=== PATIENT | female | born 1970 | race Native Hawaiian/Other Pacific Islander ===

== ENCOUNTER 2024-11-04 19:18 | Emergency (ER) | payer MEDICAID, SELFPAY ==
[2024-11-04] VITALS (10 sets, daily range): BP systolic 87–135; BP diastolic 45–75; PULSE 84–111; RESP 13–22; TEMP 36.7; O2SAT 96–100; BMI 32.5
--- OUTSIDE RECORDS SUMMARY | 2024-11-04 19:23 | XMS_ITS | Clinical Summary ---
Author Organization [employer] [facility] [facility] Address [address] [place] [id number] Care Team Providers Care Laborer Syrup Machine Name Role Phone Sally Freeman MD Unavailable + Brooke Nur MD Primary Care Provider [facility], Rector Unavailable Allergies Active Allergy Reactions Criticality Noted Date Comments Aspirin Aspirin Contraindication (for reporting) 05/30/2016 GI upset Povidone-Iodine Itching 08/07/2007 Dexamethasone Anaphylaxis,Rash High 11/13/2016 Reactions observed when dexamethasone was used in iontophoresis treatment Unlisted Allergen (Include Detail In Comments) GI Upset 02/23/2021 chili peppers Medications multivitamin (VITAMIN DAILY ORAL) Take 1 tablet. by mouth once daily. Active ergocalciferol (,vitamin D2,) 50,000 unit capsuleIndicati ons:S/P spinal fusion Take 1 Capsule (50,000 units) by mouth once weekly. 12 Capsule 3 06/18/20 24 Active famotidine (PEPCID) 20 mg tablet Take 20 mg by mouth once daily. Active acetaminophen (TYLENOL EXTRA STRGTH) 500 mg tabletIndicatio ns:Spinal stenosis of lumbar region with neurogenic claudication,Ne urogenic claudication,S/ P lumbar fusion Take 2 Tablets (1,000 mg) by mouth every 6 hours. Max acetaminophen dose: 4000mg in 24 hrs. 80 Tablet 1 4 4:22 PM SUPERVISOR EXTRUSION 07/30/20 24 Active insulin NPH isophane, U-100, (HUMULIN-N PEN, NOVOLIN N FLEXPEN) 100 unit/mL (3 mL) pen Inject 20 units subcutaneously in the morning and 15 units in the evening. Active metFORMIN (GLUCOPHAGE) 1,000 mg tabletIndicatio ns:Diabetes mellitus without complication (HC) Take 1 Tablet (1,000 mg) by mouth two times daily with meals. 180 Tablet 1 09/11/19 25 Active glipiZIDE (GLUCOTROL) 10 mg tabletIndicatio ns:Diabetes mellitus without complication (HC) Take 1 Tablet (10 mg) by mouth two times daily before meals. 180 Tablet 1 09/11/19 25 Active cetirizine (ZYRTEC) 10 mg tabletIndicatio ns:Urticaria Take 1 Tablet (10 mg) by mouth once daily. 90 Tablet 3 09/11/19 25 Active prochlorperazin e (COMPAZINE) 10 mg tabletIndicatio ns:Gastroenteri tis Take 1 Tablet (10 mg) by mouth every 6 hours if needed for Nausea/Vomiting. 15 Tablet 09/24/19 25 Active gabapentin (NEURONTIN) 600 mg tabletIndicatio ns:S/P lumbar fusion,Acute post-operative pain,Bilateral leg and foot pain Take 1 Tablet (600 mg) by mouth three times daily. 90 Tablet 10/06/19 25 Active gabapentin (NEURONTIN) 300 mg capsuleIndicati ons:S/P lumbar fusion,Acute post-operative pain,Bilateral leg and foot pain Take 1 Capsule (300 mg) by mouth at bedtime. Take with 600 mg capsule to make total bedtime dose of 900 mg. 30 Capsule 10/06/19 25 Active traMADoL (ULTRAM) 50 mg tabletIndicatio ns:S/P lumbar fusion,Lumbar radiculopathy,S /P spinal fusion,Status post incision and drainage Take 1 Tablet (50 mg) by mouth every 8 hours if needed for Pain. 10 Tablet 10/30/19 25 Active gabapentin (NEURONTIN) 300 mg capsuleIndicati ons:Bilateral leg and foot pain [The details of the medication are not available because there are pending changes by a home health clinician.] 180 Capsule 12/24/20 24 025 Discontinu ed(*Medica tion adjustment ) traMADoL (ULTRAM) 50 mg tabletIndicatio ns:S/P lumbar fusion,Lumbar radiculopathy,S /P spinal fusion,Status post incision and drainage Take 1 Tablet (50 mg) by mouth every 6 hours if needed for Pain. 40 Tablet 09/10/19 25 025 Discontinu ed(Reorder (E-cancel not sent)) metoclopramide (REGLAN) 5 mg tabletIndicatio ns:Gastroenteri tis [The details of the medication are not available because there are pending changes by a home health clinician.] 20 Tablet 5 5:27 PM SUPERVISOR EXTRUSION 09/18/19 25 025 Discontinu ed(*Med complete/R egimen complete/L evel of care change) cefTRIAXone (ROCEPHIN) 2 gram injectionIndica tions:PROPHYLAX IS [The details of the medication are not available because there are pending changes by a home health clinician.] 10/01/19 25 025 Discontinu ed(Duplica te therapy (E-cancel not sent)) oxyCODONE (ROXICODONE) 5 mg immediate release tabletIndicatio ns:Acute post-operative pain,Status post incision and drainage Take 1 Tablet (5 mg) by mouth every 6 hours if needed for Pain. 10 Tablet 10/01/19 25 025 Discontinu ed(Reorder (E-cancel not sent)) doxycycline monohydrate 100 mg capsule Take 100 mg by mouth two times daily. Take 1 Capsule (100 mg) by mouth two times daily for 14 days. 10/03/19 25 025 oxyCODONE (ROXICODONE) 5 mg immediate release tabletIndicatio ns:Infection of deep incisional surgical site after procedure, subsequent encounter,Acute post-operative pain Take 1 Tablet (5 mg) by mouth every 6 hours if needed for Pain. 10 Tablet 10/06/19 25 025 Discontinu ed(*Med complete/R egimen complete/L evel of care change) traMADoL (ULTRAM) 50 mg tabletIndicatio ns:Infection of deep incisional surgical site after procedure, subsequent encounter,Acute post-operative pain,S/P lumbar fusion [The details of the medication are not available because there are pending changes by a home health clinician.] 15 Tablet 10/13/19 25 025 Discontinu ed(Duplica te therapy (E-cancel not sent)) Active Problems Problem Noted Date Diagnosed Date S/P lumbar fusion 09/11/2024 Infection of deep incisional surgical site after procedure 09/11/2024 Dysuria 09/11/2024 Sepsis 08/05/2024 Drainage from wound 08/05/2024 Spinal stenosis of lumbar re gion with neurogenic claudication 07/23/2024 Neurogenic claudication 05/02/2022 Type 2 diabetes mellitus, wi thout long-term current use of insulin 02/24/2021 Herniated nucleus pulposus, L5-S1 05/06/2020 Radicular pain of right lower extremity 04/28/20 Foot pain, right 08/15/2019 Atypical chest pain 03/04/2019 AGUERO (dyspnea on exertion) 03/04/2019 Biceps tendinopathy, right 03/12/2018 Arthritis of right acromioclavicular joint 03/12 Impingement syndrome of right shoulder 8 Myopia of both eyes with astigmatism and presbyo rut 10/04/2017 Bilateral Intersection syndrome, left greater th an right 11/13/2016 Chronic pain of both knees 02/15/2016 Overview (02/15/2016): January 2016: Synvisc ONE bilaterally. Lumbosacral spondylosis without myelopathy 12/07 Gross hematuria 11/20/2014 Chronic pelvic pain in female 11/09/2014 Neck pain 09/29/2014 Chronic pain 09/29/2014 Frontal headache 12/12/2013 Chondromalacia, patella 11/14/2013 Fatty liver 10/08/2013 Adjustment disorder with mixed anxiety and depre ssed mood 05/15/2012 Endometriosis of ovary 12/11/2011 Pelvic adhesions 12/11/2011 Mixed incontinence urge and stress 12/11/2011 Ganglion cyst of volar aspect of left wrist 08/27 Hydrosalpinx 03/10/2010 Overview (03/10/2010): Left tube Pelvic pain in female 03/10/2010 Dysmenorrhea 03/10/2010 Degeneration of L5-S1 Disk 10/15/2009 L5-S1 Disk Bulge with Annular Tear 10/15/2009 Painful Lumbar Facet Arthropathy at L5-S1 2009 Endometriosis of pelvic peritoneum 03/03/2009 Unspecified vitamin D deficiency 11/03/2008 Obesity, unspecified 05/03/2007 DM w/o complication type II 02/05/2006 Overview (06/09/2013): Diagnosis: 2004 per patient 06/09/2013 Diverticular disease of colon Spinal stenosis, lumbar region with neurogenic c laudication Resolved Problems Problem Noted Date Diagnosed Date Resolved Date Osteoarthritis of right acro mioclavicular joint 08/04/2015 08/16/2018 Hyperthyroidism 06/10/2013 07/14/2013 Overview (06/10/2013): New diagnosis 06/10/2013 Endometriosis of other specified sites 03/10/2010 01/25/2015 Pyelonephritis, unspecified 04/27/2009 06/09/2013 Encounters Date Type Department Care Team Description 11/04/2024 Home Care Visit [facility] [address] [place] [address] Aurea Christina RN SN - PRN HOME VISIT 11/04/2024 Telephone [facility] [address] [facility] [address] [place] [phone] Randy López PA Medication Management 11/03/2024 10:00 AM CDT Home Care Visit [facility] [address] [place] [address] Aurea Christina RN SN - WOUND LONG VISIT (>90 MINUTES) 11/03/2024 Telephone [facility] [address] [place] [address] Aurea Christina RN Abdominal Pain/problem 11/03/2024 Telephone [facility] [address] [place] [address] Safia Perez PA Concerns 11/03/2024 Nurse Triage [facility] [address] [place] [address] Brooke Nur MD Abdominal Pain 10/31/2024 8:00 AM SUPERVISOR EXTRUSION Home Care Visit [facility] [address] [place] [phone] Aurea Christina, SHAWANDA SN - WOUND LONG VISIT (>90 MINUTES) 10/31/2024 Orders Only [facility] [address] [facility] [address] [place] [phone] Ja Brown PA <No scans attached> 10/31/2024 Orders Only [facility] [address] [place] [address] Brooke Nur MD <No scans attached> 10/29/2024 Home Care Visit [facility] [address] [place] [phone] Aurea Christina, SHAWANDA SN - PRN LONG VISIT >90 MINS 10/29/2024 Refill [facility] [address] [place] [phone] Tana Edwards MBBS Refill Request 10/29/2024 Orders Only [facility] [address] [facility] [address] [place] [phone] Jared Pavon RN <No scans attached> 10/29/2024 Telephone [facility] [address] [place] [address] Brooke Nur MD 10/28/2024 Orders Only [facility] [address] [place] [address] Aurea Christina RN <No scans attached> 10/27/2024 2:00 PM SUPERVISOR EXTRUSION Home Care Visit [facility] [address] [place] [phone] Aurea Christina, SHAWANDA SN - WOUND LONG VISIT (>90 MINUTES) 10/27/2024 Telephone [facility] [address] [place] [phone] Jo-Ann Oquendo NP Questions 10/24/2024 5:00 PM SUPERVISOR EXTRUSION Home Care Visit [facility] [address] [place] [address] Aurea Christina RN SN - WOUND LONG VISIT (>90 MINUTES) 10/22/2024 11:20 AM SUPERVISOR EXTRUSION Office Visit [facility] [address] [place] [phone] Jo-Ann Oquendo NP Wound Check 10/22/2024 10:45 AM SUPERVISOR EXTRUSION Office Visit [facility] [address] [place] [phone] Tana Edwards MBBS Follow Up (wound check ) 10/22/2024 Travel 10/20/2024 8:00 AM SUPERVISOR EXTRUSION Home Care Visit [facility] [address] [place] [address] Aurea Christina RN SN - WOUND LONG VISIT (>90 MINUTES) 10/17/2024 Telephone [facility] [address] [place] [phone] Jo-Ann Oquendo NP Questions (VAC) 10/16/2024 8:20 AM SUPERVISOR EXTRUSION Office Visit [facility] [address] [place] [address] Jo-Ann Oquendo NP Wound Check 10/16/2024 Travel 10/15/2024 8:00 AM SUPERVISOR EXTRUSION Home Care Visit [facility] [address] [place] [address] Aurea Christina RN SN - WOUND LONG VISIT (>90 MINUTES) 10/15/2024 Orders Only [address] [place] [address] Brooke Nur MD <No scans attached> 10/14/2024 1:00 PM SUPERVISOR EXTRUSION Home Care Visit [facility] [address] [place] [phone] Shalini Morris RN SN - HOME VISIT 10/13/2024 10:50 AM SUPERVISOR EXTRUSION Office Visit [facility] [place] [address] [place] [address] Vimal Min MD Follow Up (Hypercharge) 10/13/2024 Telephone [facility] [address] [place] [phone] Rima Isbell RN Home Care (PICC removal orders) 10/13/2024 Home Care Visit [facility] [address] [place] [phone] Rima Isbell RN CARE COORDINATION 10/13/2024 Telephone [facility] [address] [place] [address] Mari Elam MD Questions (PICC LINE MIGRATING, IV ANTIBIOTICS AND LABS, PLAN OF CARE) 10/13/2024 Nurse Triage [facility] [address] [place] [address] Brooke Nur MD Infusion Therapy (PICC line concerns/lab orders) 10/13/2024 Travel 10/10/2024 2:00 PM SUPERVISOR EXTRUSION Home Care Visit [facility] [address] [place] [phone] Aurea Christina RN SN - WOUND LONG VISIT (>90 MINUTES) 10/09/2024 Orders Only [facility] [address] [place] [address] Brooke Nur MD <No scans attached> 10/08/2024 8:00 AM SUPERVISOR EXTRUSION Home Care Visit [facility] [address] [place] [address] Aurea Christina, RN SN - WOUND LONG VISIT (>90 MINUTES) 10/06/2024 11:35 AM SUPERVISOR EXTRUSION Office Visit [facility] [address] [place] [address] Safia Perez PA Hospital F/U (DOD 10/01/2024 [facility] INFECTION OF DEEP INCISIONAL SURGICAL SITE AFTER PROCEDURE); Concerns (Not sleeping ) 10/06/2024 8:00 AM SUPERVISOR EXTRUSION Home Care Visit [facility] [address] [place] [address] Aurea Christina, SHAWANDA SN - WOUND LONG VISIT (>90 MINUTES) 10/06/2024 Orders Only [facility] [address] [place] [address] Brooke Nur MD <No scans attached> 10/06/2024 Refill [facility] [address] [place] [address] Safia Perez PA Refill Request (Oxycodone) 10/06/2024 Telephone [facility] [address] [place] [address] Safia Perez PA Medication Management 10/06/2024 Travel 10/03/2024 9:00 AM SUPERVISOR EXTRUSION Home Care Visit [place] [address] [place] [phone] Auera Christina RN SN IV - START OF CARE 10/03/2024 Orders Only [facility] [address] [place] [address] Brooke Nur MD <No scans attached> 10/03/2024 Plan of Care Documentation [address] [address] 10/02/2024 Transcribe Orders [facility] [address] [place] [phone] Infusion, [facility] 10/02/2024 Telephone [facility] [address] [place] [address] Mari Elam MD 10/02/2024 Patient Outreach [facility] [address] [place] [address] Zhane Cho, RN Student Primary RN Care Management; Hospital F/U (Lace=41) 10/02/2024 Home Care Visit [facility] [address] [place] [phone] Aurea Christina, SHAWANDA SN - OASIS TRANSFER 10/01/2024 Home Care Visit [facility] [address] [place] [phone] Aurea Christina, SHAWANDA EPISODE DISCHARGE 10/01/2024 Orders Only [facility] [address] [place] [phone] Manish amaro PA <No scans attached> 10/01/2024 Home Care Visit [facility] [address] [place] [phone] Aurea Christina, AQUACULTURE PROGRAM DIRECTOR NOTE 09/29/2024 4:41 PM SUPERVISOR EXTRUSION Anesthesia Event [address] [address] Adonay Franco MD Koenig, Lisa Fredkove, MD 09/29/2024 4:20 PM SUPERVISOR EXTRUSION - 09/29/2024 5:57 PM SUPERVISOR EXTRUSION Surgery [address] [address] Tana Edwards MBBS INCISION AND DEBRIDEMENT OF ABDOMINAL WOUND WITH WOUND VACUUM PLACEMENT 09/29/2024 11:12 AM SUPERVISOR EXTRUSION - 10/01/2024 6:21 PM SUPERVISOR EXTRUSION Hospital Encounter [address] [address] Tana Edwards MBBS Infection of deep incisional surgical site after procedure, subsequent encounter (Primary Dx); Postoperative infection, unspecified type, sequela; Acute post-operative pain; S/P lumbar fusion; Lumbar radiculopathy; S/P spinal fusion; Status post incision and drainage Discharge Disposition: Home Self Care 09/29/2024 Travel 09/27/2024 Orders Only [facility] [address] [facility] [address] Brooke Nur MD <No scans attached> 09/26/2024 2:35 PM SUPERVISOR EXTRUSION Office Visit [facility] [address] [place] [address] Mercy Villalpando PA Pre-Op Exam (Type/Name of Surgery: ABDOMINAL SURGERY / Date of Surgery: 09/29/24 /Place of Surgery: [facility] /Surgeon's : DR. SHARMAINE EDWARDS / /) 09/26/2024 9:00 AM SUPERVISOR EXTRUSION Home Care Visit [facility] [address] [place] [address] Aurea Christina RN SN - HOME VISIT 09/26/2024 Travel 09/26/2024 Orders Only [facility] [address] [place] [address] Jo-Ann Oquendo NP <No scans attached> 09/25/2024 10:10 AM SUPERVISOR EXTRUSION Orders Only [facility] [address] [place] [address] Lab 09/25/2024 7:40 AM SUPERVISOR EXTRUSION Office Visit [facility] [address] [place] [address] Jo-Ann Oquendo NP Wound Check 09/25/2024 Orders Only [facility] [address] [place] [address] Brooke Nur MD <No scans attached> 09/25/2024 Telephone [facility] [address] [place] [address] Tana Edwards MBBS Education 09/25/2024 Telephone [facility] [address] [place] [address] Tana Edwards MBBS Procedure education and update 09/25/2024 Telephone [facility] [address] [facility] [address] [place] [address] Tana Edwards MBBS Procedure 09/25/2024 Travel 09/24/2024 8:30 AM SUPERVISOR EXTRUSION Home Care Visit [facility] [address] [place] [address] Aurea Christina RN SN - LONG VISIT (>90 MINUTES) 09/24/2024 Telephone [facility] [address] [place] [address] Brooke Nur MD Follow Up 09/22/2024 8:00 AM SUPERVISOR EXTRUSION Home Care Visit [facility] [address] [place] [phone] Aurea Christina RN SN - LONG VISIT (>90 MINUTES) 09/22/2024 Orders Only [facility] [address] [facility] [place] [address] Justin Garsia MD Lab 09/22/2024 Orders Only [facility] [address] [place] [address] Brooke Nur MD <No scans attached> 09/19/2024 9:40 AM SUPERVISOR EXTRUSION Office Visit [facility] [address] [facility] [address] [place] [address] Jo-Ann Oquendo NP Wound Check 09/19/2024 Home Care Visit [facility] [address] [place] [phone] Rima Isbell RN CARE COORDINATION 09/18/2024 11:47 AM SUPERVISOR EXTRUSION - 09/18/2024 5:25 PM SUPERVISOR EXTRUSION Emergency [facility] [address] [place] [address] Elizabeth Pizarro PA Gooley, Brian Thomas, MD Gastroenteritis (Primary Dx); Chronic wound infection of abdomen, initial encounter Discharge Disposition: Home Self Care 09/18/2024 Travel 09/17/2024 8:30 AM SUPERVISOR EXTRUSION Home Care Visit [facility] [address] [place] [address] Josselyn Garland RN SN - HOME VISIT 09/17/2024 Orders Only [facility] [address] [place] [address] Brooke Nur MD Lab 09/17/2024 Orders Only [facility] [address] [place] [address] Brooke Nur MD Lab (Home care) 09/17/2024 Orders Only [facility] [address] [place] [address] Justin Garsia MD Lab (Home care) 09/16/2024 Telephone [facility] [address] [place] [address] Josselyn Garland RN Diarrhea 09/16/2024 Telephone [facility] [address] [place] [address] Justin Garsia MD Lab (Home care) 09/16/2024 Nurse Triage [facility] [address] [place] [address] Brooke Nur MD Vomiting; Diarrhea 09/16/2024 Nurse Triage [facility] [address] [facility] [address] [place] [address] Mari Elam MD Diarrhea; Vomiting; Weak 09/15/2024 11:00 AM SUPERVISOR EXTRUSION Office Visit [facility] [place] [address] [place] [address] Vimal Cabello MD Follow Up (incision check ) 09/15/2024 Travel 09/12/2024 3:45 PM SUPERVISOR EXTRUSION Home Care Visit [facility] [address] [facility] [place] [address] Raul Montoya, PT PT - DISCIPLINE DISCHARGE 09/12/2024 3:00 PM SUPERVISOR EXTRUSION Home Care Visit [facility] [address] [facility] [place] [address] Aurea Crhistina, SHAWANDA SN - HOME VISIT 09/12/2024 4:00 AM SUPERVISOR EXTRUSION Home Care Visit [facility] [address] [facility] [place] [phone] Raul Collado RN SN - WOUND/OSTOMY CHART CONSULT 09/12/2024 Travel 09/12/2024 Home Care Visit [facility] [address] [place] [phone] Sandrine Guzman, PHOTO FINISH PHOTOGRAPHER CARE COORDINATION 09/11/2024 12:45 PM SUPERVISOR EXTRUSION Office Visit [facility] [address] [place] [address] Brooke Nur MD Hospital F/U ([facility] 08/05/2024) 09/11/2024 9:20 AM SUPERVISOR EXTRUSION Office Visit [facility] [address] [place] [address] Mari Elam MD Hospital F/U 09/11/2024 8:20 AM SUPERVISOR EXTRUSION Office Visit [facility] [address] [place] [address] Jo-Ann Oquendo NP Wound Check 09/11/2024 Travel 09/10/2024 4:00 PM SUPERVISOR EXTRUSION Home Care Visit [facility] [address] [facility] [place] [address] Aurea Christina, SHAWANDA SN - HOME VISIT 09/10/2024 Telephone [facility] [address] [place] [address] Pawan Us PA Refill Request 09/10/2024 Telephone [facility] [address] [place] [phone] Jo-Ann Oquendo NP Failed Appointment (No show) 09/08/2024 8:30 AM SUPERVISOR EXTRUSION Home Care Visit [facility] [address] [place] [phone] Aurea Christina, RN SN - LONG VISIT (>90 MINUTES) 09/08/2024 Orders Only [facility] [address] [facility] [place] [address] Leslye Garsia RN Lab 09/05/2024 1:30 PM SUPERVISOR EXTRUSION Office Visit [facility] [address] [place] [phone] Tana Edwards MBBS Consult (H/O lumbosacral spine surgery) 09/05/2024 8:00 AM SUPERVISOR EXTRUSION Ancillary Procedure [facility] [address] [place] [address] 09/05/2024 Travel 09/04/2024 9:00 AM SUPERVISOR EXTRUSION Office Visit [facility] [address] [place] [phone] Pawan Us PA Post-op (INCISION CHECK AND SUTURE REMOVAL - HAS A FLUID COLLECTION/5 weeks post/op 07/23/24 A/P L4-S1 W/ PF) 09/04/2024 Telephone [facility] [address] [place] [address] Justin Garsia MD Abdominal Pain/problem 09/03/2024 5:30 PM SUPERVISOR EXTRUSION Home Care Visit [facility] [address] [place] [phone] Aurea Christina, SHAWANDA SN - HOME VISIT 09/03/2024 4:00 PM SUPERVISOR EXTRUSION Home Care Visit [facility] [address] [place] [address] Raul Montoya, PT PT - HOME VISIT 09/03/2024 Travel 09/03/2024 Telephone [facility] [address] [place] [phone] Tana Edwards MBBS Appt and imaging schedule 09/03/2024 Telephone [facility] [address] [place] [address] Tana Edwards MBBS Error-please disregard 09/03/2024 Telephone [facility] [address] [place] [address] Pawan Us PA Refill Request 09/02/2024 4:00 AM SUPERVISOR EXTRUSION Home Care Visit [place] [address] [place] [phone] Raul Collado, RN SN - WOUND/OSTOMY CHART CONSULT 09/02/2024 Home Care Visit [facility] [address] [place] [phone] Aurea Christina RN SN - HOME VISIT 09/02/2024 Telephone [facility] [address] [place] [phone] Tana Edwards MBBS Wound Update 09/01/2024 3:30 PM SUPERVISOR EXTRUSION Home Care Visit [facility] [address] [place] [phone] Claire Ramsey LISW GENERAL ACTIVITIES THERAPIST - INITIAL ASSESSMENT 09/01/2024 8:30 AM SUPERVISOR EXTRUSION Home Care Visit [place] [id number] [place] [phone] Aurea Christina, SHAWANDA SN - LONG VISIT (>90 MINUTES) 09/01/2024 Orders Only [facility] 200 [facility] DANIELA TERRELLSRINIVAS [place] [phone] Justin Garsia MD Lab 08/29/2024 10:30 AM SUPERVISOR EXTRUSION Home Care Visit [facility] [address] [place] [phone] Raul Montoya, PT PT - HOME VISIT 08/29/2024 Telephone [facility] at [facility] [address] [address] Pawan Us PA Refill Request 08/28/2024 12:00 PM SUPERVISOR EXTRUSION Home Care Visit [facility] [address] [place] [phone] Raul Collado, RN SN - WOUND/OSTOMY CHART CONSULT 08/28/2024 9:30 AM SUPERVISOR EXTRUSION Home Care Visit [facility] [address] [place] [phone] Aurea Christina RN SN - HOME VISIT 08/28/2024 Telephone [facility] [address] [place] [address] Raul Collado, drapery cutter machine 08/28/2024 Home Care Visit [facility] [address] [place] [phone] Raul Montoay, PT CARE COORDINATION 08/28/2024 Orders Only [facility] [address] [place] [address] Tana Garsia DO Lab 08/28/2024 Orders Only [facility] [address] [place] [address] Brooke Nur MD Lab 08/26/2024 2:45 PM SUPERVISOR EXTRUSION Office Visit [facility] 280 [facility] [address] [place] [phone] Pawan Us PA Post-op (08/13/24 Post Lumbar wound exploration (sms)/07/23/24 APSF L4-S1 w/ pelvic fix (sms)) 08/26/2024 2:15 PM SUPERVISOR EXTRUSION Ancillary Procedure [facility] [address] [place] [address] 08/26/2024 4:00 AM SUPERVISOR EXTRUSION Home Care Visit [facility] [address] [place] [address] Raul Collado, RN SN - WOUND/OSTOMY CHART CONSULT 08/26/2024 Telephone [facility] [address] [place] [address] Raul Collado, drapery cutter machine 08/26/2024 Home Care Visit [facility] [address] [place] [phone] Rima Isbell RN CARE COORDINATION 08/26/2024 Travel 08/22/2024 10:00 AM SUPERVISOR EXTRUSION Home Care Visit [facility] [address] [place] [phone] Lela Ayers, PT PT - INITIAL ASSESSMENT 08/22/2024 Telephone [facility] at [facility] [address] [place] [address] Randy López PA 08/21/2024 1:30 PM SUPERVISOR EXTRUSION Home Care Visit [facility] [address] [place] [phone] Sandrine Guzman, PHOTO FINISH PHOTOGRAPHER PHOTO FINISH PHOTOGRAPHER - HOME VISIT 08/21/2024 Home Care Visit [facility] [address] [place] [phone] Lela Ayers, PT CARE COORDINATION 08/19/2024 8:00 AM SUPERVISOR EXTRUSION Home Care Visit [facility] [address] [place] [phone] Aurea Christina, SHAWANDA SN - HOME VISIT 08/19/2024 12:25 AM SUPERVISOR EXTRUSION Home Care Visit [facility] [address] [place] [phone] Raul Collado, RN SN - WOUND/OSTOMY CHART CONSULT 08/19/2024 Orders Only [facility] [address] [place] [address] Justin Garsia MD Lab 08/19/2024 Refill [facility] [address] [place] [address] Brooke Nur MD Refill Request (Gabapentin) 08/19/2024 Telephone [facility] at [facility] [address] [place] [address] Pawan Us PA Refill Request 08/18/2024 3:00 PM SUPERVISOR EXTRUSION Home Care Visit [facility] [address] [place] [phone] Aurea Christina, SHAWANDA SN - HOME VISIT 08/18/2024 Orders Only [facility] [address] [place] [phone] Justin Garsia MD Lab (Weekly labs) 08/18/2024 Orders Only [facility] [address] [place] [address] Justin Garsia MD <No scans attached> 08/18/2024 Patient Outreach [facility] [address] [place] [address] Annalisa Perkins RN Primary RN Care Management (Lace score 63/); Hospital F/U 08/16/2024 12:00 PM SUPERVISOR EXTRUSION Home Care Visit [facility] [address] [place] [phone] Alka Joshua, RN SN - OASIS RESUMPTION OF CARE 08/15/2024 Home Care Visit [facility] [address] [place] [phone] Alka Joshua, RN CARE COORDINATION 08/15/2024 Refill [facility] [address] [place] [address] Brooke Nur MD Refill Request (Gabapentin) 08/13/2024 7:25 AM SUPERVISOR EXTRUSION Anesthesia Event [place] [address] [place] [address] Selvin Guzmán MD Nye, Leeroy Pearson MD 08/13/2024 7:10 AM SUPERVISOR EXTRUSION - 08/13/2024 9:09 AM SUPERVISOR EXTRUSION Surgery [place] [address] [place] [address] Vimal Min MD POSTERIOR LUMBAR WOUND EXPLORATION 08/07/2024 Home Care Visit [facility] [address] [place] [phone] Rima Isbell RN SN - OASIS TRANSFER 08/05/2024 1:44 PM SUPERVISOR EXTRUSION - 08/15/2024 4:28 PM SUPERVISOR EXTRUSION Hospital Encounter [place] [address] [place] [address] Daysi Chan PA Beeman, Michel Bone MD [facility], Hospitalist [facility] Jared Cardona MD Gardner, MD Danielle Henderson, Kaylen Coffey MD Drainage from wound (Primary Dx); Leukocytosis, unspecified type; S/P lumbar fusion; Wound drainage; Fluid collection at surgical site, initial encounter; Bilateral leg and foot pain; Spinal stenosis of lumbar region with neurogenic claudication; Neurogenic claudication; Sepsis, due to unspecified organism, unspecified whether acute organ dysfunction present (HC); Status post incision and drainage Discharge Disposition: Home Health from Last 3 Months Immunizations Immunization Administration Dates Next Due AMB Influenza, IIV3 (Age >=3 years)(Flu Clinic Only) 07/26/2010 AMB Influenza, IIV4 PF (=>6 mos Flulaval,Fluzone Fluarix)(Flu Clinic Only) 06/20/2019 COVID-19 vaccine (Pfizer-Bio NTech 30mcg/0.3mL) 12YO+ BIVALENT PF, MDV 10/05/2022 COVID-19 vaccine (Pfizer-Bio NTech 30mcg/0.3mL) 12YO+ YADY-SUCROSE PF, MDV 09/26/2021 COVID-19 vaccine (Pfizer-Bio NTech 30mcg/0.3mL) PF, MDV 01/10/2021,12/20/2020 DT (Age < 7 years) 08/11/2005 HepA-HepB (Twinrix) 05/30/2016,08/26/2013,2012 Influenza A (H1N1), Inactivated 08/23/2009 Influenza A (H1N1), Inactiva jayda (Age >=3 Years) 08/23/2009 Influenza, IIV3 (Age >=3 years) 06/06/20 13,07/26/2010,05/07/2009,2006,06/04/2006,08/11/2005 Influenza, IIV4 05/02/2022,,05/17/2020,2017,06/21/2017,05/30/2016,06/04/2015,0 05/21/2014 Influenza, IIV4 (=>6mos) MDV 06/05/2023 Pneumococcal Conj 20-valent (Prevnar 20) 05/02/2022 Pneumococcal Poly,23-Valent (Pneumovax) 05/17/2020,09/25/2017 TD, UNSPECIFIED 11/12/2018 Td, Preservative Free (age > = 7 Years) 08/11/2005 Tdap 01/12/2015 Zoster (Shingrix-RZV, recombinant) 07/08/2021, Family History Medical History Relation Name Comments Coronary artery disease Brother Depression Father Diabetes Father Heart Disease Father Depression Mother Diabetes Mother Heart Disease Mother Hypertension Mother Other Mother cirrhosis, 45 Ulcerative colitis Mother Other Sister 4 liver disease Anesthesia Problem No Family History Blood Disease No Family History Cancer-breast No Family History Relation Name Status Comments Brother Father Alive Maternal Grandfather Maternal Grandmother Mother (Age 45) ND, DM, ci rrhosis Paternal Grandfather Paternal Grandmother Alive Sister 1 Alive Sister 2 Alive Sister 3 Alive Sister 4 Social History Tobacco Use Types Packs/Day Years Used Date Smoking Tobacco: Never Smokeless Tobacco: Never Tobacco Cessation:Counseling Given: No Comments:No passive exposure Alcohol Use Standard Drinks/Week Comments No 0 (1 standard drink = 0.6 oz pur e alcohol) PHQ-2 Answer Date Recorded PHQ-2 TOTAL SCORE 0 12/20/2023 Social Connections Answer Date Recorded Do you often feel lonely or isolated from those around you? 0 08/08/2024 Financial Resource Strain Answer Date R ecorded Difficulty of Paying Living Expenses 3 08/08/2024 Difficulty of Paying Living Expenses Not on file 08/08/2024 Food Insecurity Answer Date Recorded Do you worry your food will run out before you are able to buy more? 1 08/08/2024 Transportation Needs Answer Date Record ed Does lack of transportation keep you from medica l appointments? 1 08/08/2024 Does lack of transportation keep you from work, meetings or getting things that you need? 1 08/08/2024 Housing Stability Answer Date Recorded What is your housing situation today? 1 08/08/2024 Interpersonal Safety Answer Date Record ed Are you being hit, kicked, p ushed or yelled at (see row info)? No 10/01/2024 Interpersonal Safety Abuse 12 - 18 Not on file 10/01/2024 Interpersonal Safety Ambulatory Vulnerability No t on file 10/01/2024 Utilities Answer Date Recorded Do you have trouble paying f or utilities (for example, heat, electricity, water, phone)? 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 Not on file Not on file Not on file Obstetrics History Para Term AB IAB SAB Ectopic Multiple Livin g Live Births 0 0 0 0 0 0 0 0 0 0 Last Filed Vital Signs Vital Sign Reading Time Taken Comments Blood Pressure 105/70 11/03/2024 1:15 PM CDT Pulse 85 11/03/2024 1:15 PM CDT Temperature 36.6 C (97.8 F) 11/04/2024 2:00 PM CDT Respiratory Rate 16 11/03/2024 1:15 PM CDT Oxygen Saturation 96% 11/03/2024 1:15 PM CDT Inhaled Oxygen Concentration - - Weight 70.8 kg (156 lb) 10/13/2024 11:27 AM SUPERVISOR EXTRUSION Height 144.8 cm (4' 9) 10/13/2024 11:27 AM SUPERVISOR EXTRUSION Body Mass Index 33.76 10/13/2024 11:27 AM SUPERVISOR EXTRUSION Plan of Treatment Upcoming Encounters Date Type Department Care Team (Late st Contact Info) Description 11/05/2024 12:45 PM CDT Office Visit [facility] [address] [place] [address] Brooke Nur MD [address] [place] [address] 11/05/2024 2:20 PM CDT Office Visit [facility] [address] [place] [phone] Jo-Ann Oquendo 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 [address] [place] [address] 11/07/2024 8:00 AM CDT Home Care Visit [place] [address] [place] [phone] Aurea Christina, RN 11/10/2024 8:00 AM CDT Home Care Visit [place] [address] [place] [phone] Aurea Christina, RN 11/12/2024 7:40 AM CDT Office Visit [facility] [address] [place] [phone] Jo-Ann Oquendo NP [address] [place] [address] 11/14/2024 8:00 AM CDT Home Care Visit [address] [phone] Aurea Christina, RN 11/17/2024 8:00 AM CDT Home Care Visit [place] [address] [place] [phone] Aurea Christina, RN 11/21/2024 8:00 AM CDT Home Care Visit [address] [phone] Aurea Christina, SHAWANDA 11/24/2024 8:00 AM CDT Home Care Visit [facility] [address] [facility] [place] [address] Aurea Christina, RN 11/28/2024 8:00 AM CDT Home Care Visit [facility] [address] [facility] [place] [phone] Aurea Christina, RN 12/01/2024 8:00 AM CDT Appointment [facility] [address] [facility] [place] [phone] Aurea Christina, RN Health Maintenance Due Date Last Done Comments COVID-19 vaccine series ( season) 2024 06/05/2023, 10/05/2022, 09/26/2021, Additional history exists Influenza Vaccine (#1) 2024 , 05/02/2022, 07/04/2021, Additional history exists Mammogram for age 45-75 08/23/2024 08/23/20 23, 06/29/2020, 08/21/2018, Additional history exists Depression screening for age 12+ 12/19/2024 12/20/2023, 12/20/2023, 10/06/2022, Additional history exists BMI (ht and wt on same day) for age 18+ 10/13/2025 10/13/2024, 09/26/2024, 09/15/2024, Additional history exists Lipids for age 45-75 08/16/2028 08/16/2023, 05/02/2022, 06/24/2020, Additional history exists Tetanus booster 11/12/2028 11/12/2018, 12/25, 04/21/2011, Additional history exists Colonoscopy through age 75 12/17/203112/16, 12/16/2021, 12/16/2021 Hepatitis C screening for ag e 18-79 Completed 03/07/2010, 11/10/2008, 12/10/2002 Tdap Completed 01/12/2015 Hepatitis B series for Diabetes Completed 05/30/2016, 08/26/2013, 01/10/2013 HIV for age 15-65 Completed 12/31/2018, , 06/13/2013, Additional history exists Zoster (shingles) series for age 50+ Completed 07/08/2021, 05/17/2020 Pneumococcal series for age 50+ Completed 05/02/2022, 05/17/2020, 09/25/2017 Medical Devices Implanted Type Area Driver Wheelchair Device Identifier Shelf Expiration Date Model / Serial / Lot System Sling Obtryx Halo [id number] - [id number] Implanted:Qt y: 1 on 12/11/2011 at [facility] N/A: Vagina [facility] 02/23/2014 850-500# / / [id number] - [id number] Implanted:Qt y: 1 on 07/23/2024 by Vimal Min MD at [facility] N/A: Lumbar Vertebrae SeaSpine [id number] / / Description:Face Plate 16 mm 3-hole I added the 3 to the catalog number and emailed RN to notify that I made the change. 07/25 JT Bone 1-4mm 60cc Medtronic Fine Canclls Freeze Dried - [id number] Implanted:Qt y: 1 on 07/23/2024 by Vimal Min MD at [facility] N/A: Lumbar Vertebrae Medtronic Spine/Ortho [id number] 03/30/2028 [id number] / [id number] / Screw Bone Polyaxial Mariner - [id number] Implanted:Qt y: 6 on 07/23/2024 by Vimal Min MD at [facility] N/A: Lumbar Vertebrae SeaSpine [id number] / / Screw 8.5x60mm Solid Mariner - [id number] Implanted:Qt y: 2 on 07/23/2024 by Vimal Min MD at [facility] N/A: Lumbar Vertebrae Sea[employer]ine [id number] / / Screw 7.5x40mm Solid Mariner - [id number] Implanted:Qt y: 2 on 07/23/2024 by Vimal Min MD at [facility] N/A: Lumbar Vertebrae SeaSpine [id number] / / Screw 6.5x50mm Solid Mariner - [id number] Implanted:Qt y: 2 on 07/23/2024 by Vimal Min MD at [facility] N/A: Lumbar Vertebrae [facility] 41-6550-1 / / Set Screw Pointlock Mariner - [id number] Implanted:Qt y: 6 on 07/23/2024 by Vimal Min MD at [facility] N/A: Lumbar Vertebrae Ana Luisa [id number] / / [id number] - [id number] Implanted:Qt y: 2 on 07/23/2024 by Vimal Min MD at [facility] N/A: Lumbar Vertebrae [place] 41 / / Description:Ruben 6.0x70 mm Bone Matrix 10cc Marcell Plus Paste Dbm - [id number] Implanted:Qt y: 1 on 07/23/2024 by Vimal Min MD at [facility] N/A: Lumbar Vertebrae Medtronic Spine/Ortho [id number] 06/05/2026 [id number] / [id number] / Bone Matrix 5cc Stimulan Kit Rapid Cure - [id number] Implanted:Qt y: 1 on 07/23/2024 by Vimal Min MD at [facility] N/A: Lumbar Vertebrae [employer] 03/26/2027 [id number] / / [id number] Bone Matrix Md Infuse Bmp - [id number] Implanted:Qt y: 1 on 07/23/2024 by Vimal Min MD at [facility] N/A: Lumbar Vertebrae Medtronic Spine/Ortho [id number] 10/25/2025 [id number] / / [id number] 14 Peek Ti, Ta Seaspine Implant Implanted:Qt y: 1 on 07/23/2024 by Vimal Min MD at [facility] N/A: Lumbar Vertebrae SeaSpine 02/15/2028 [id number] / / [id number] Description:No Profile inter body, 31 x 24 x 14, 15 Degree 16 Peek Ti, Ta Seaspine Implant Implanted:Qt y: 1 on 07/23/2024 by Vimal Min MD at [facility] N/A: Lumbar Vertebrae SeaSpine 02/29/2028 [id number] / / [id number] Description:No profile inter body , 31 x 24 x 16, 15 degree Mrai-[id number] - [id number] Implanted:Qt y: 1 on 07/23/2024 by Vimal Min MD at [facility] N/A: Lumbar Vertebrae [employer]ine [id number] / / Description:Locking Plate [facility] - [id number] Implanted:Qt y: 1 on 07/23/2024 by Vimal Min MD at [facility] N/A: Lumbar Vertebrae SeaSpine [id number] / / Description:Face Plate 14 mm 3-hole I updated the catalog number for the RN and email the correction. I added the 07/25 JT [facility]-495029 - [id number] Implanted:Qt y: 6 on 07/23/2024 by Vimal Min MD at [facility] N/A: Lumbar Vertebrae [facility]-[id number] / / Description:Screw 5.5 x 25 m m Procedures Procedure Name Priority Date/Time Associated Diagnosis Comments GLUCOSE METER Timed 10/01/2024 12:24 PM SUPERVISOR EXTRUSION GLUCOSE METER Timed 10/01/2024 7:32 AM SUPERVISOR EXTRUSION POTASSIUM TREV 10/01/2024 5:52 AM SUPERVISOR EXTRUSION MAGNESIUM Early AM 10/01/2024 5:52 AM SUPERVISOR EXTRUSION GLUCOSE METER Timed 09/30/2024 9:24 PM SUPERVISOR EXTRUSION GLUCOSE METER Timed 09/30/2024 5:39 PM SUPERVISOR EXTRUSION POTASSIUM Timed 09/30/2024 3:11 PM SUPERVISOR EXTRUSION GLUCOSE METER Timed 09/30/2024 12:34 PM SUPERVISOR EXTRUSION GLUCOSE METER Timed 09/30/2024 6:52 AM SUPERVISOR EXTRUSION MAGNESIUM TREV 09/30/2024 5:10 AM SUPERVISOR EXTRUSION BASIC METABOLIC PANEL Early AM 09/30/2024 5:10 AM SUPERVISOR EXTRUSION CBC W PLT NO DIFF Early AM 09/30/2024 5:1 0 AM SUPERVISOR EXTRUSION XR CHEST 1 VIEW PORTABLE STAT 09/30/2024 12:18 AM SUPERVISOR EXTRUSION GLUCOSE METER Timed 09/29/2024 10:50 PM SUPERVISOR EXTRUSION GLUCOSE METER Timed 09/29/2024 5:57 PM SUPERVISOR EXTRUSION TISSUE CULTURE, STAIN (AEROBIC) Today 09/29/2024 5:16 PM SUPERVISOR EXTRUSION ANAEROBIC CULTURE Today 09/29/2024 5:1 6 PM SUPERVISOR EXTRUSION ENDOTRACHEAL TUBE Routine 09/29/2024 5:0 4 PM SUPERVISOR EXTRUSION ENDOTRACHEAL TUBE Routine 09/29/2024 5:0 4 PM SUPERVISOR EXTRUSION ENDOTRACHEAL TUBE Routine 09/29/2024 5:0 4 PM SUPERVISOR EXTRUSION INCISION DRAINAGE Tier 1 09/29/2024 4:3 1 PM SUPERVISOR EXTRUSION Abdominal wound dehiscence, sequela Case Notes T/F CASES IN HYBRID ROOM - 1630 - 30MINPORTABLE WOUND VAC Special Needs HT 4' 9 WT 68.4 kg BMI 32.60DM 2Betadine allergyPICC right armDifficult iv startMI MR RM 1 by 1015 on dos[facility] CARE COORDINATOR CONFIRMED pre-op [id number] & post-op [id number].ENTERIC PRECAUTIONS ordered until C diff can be ruled out. S tool sample to be tested on Sunday 2/3 GLUCOSE, RANDOM TREV 09/29/2024 2:42 PM SUPERVISOR EXTRUSION BASIC METABOLIC PANEL Preop 09/29/2024 2:42 PM SUPERVISOR EXTRUSION CBC W PLT NO DIFF Preop 09/29/2024 2:4 2 PM SUPERVISOR EXTRUSION MR SPINE LUMBAR WWO TREV 09/29/2024 11:28 AM SUPERVISOR EXTRUSION Postoperative infection, unspecified type, sequela SCAN-CARDIAC STRIP 09/29/2024 12:00 AM SUPERVISOR EXTRUSION AEROBIC BACTERIAL CULTURE, STAIN Routine 09/25/2024 11:19 AM SUPERVISOR EXTRUSION Wound infection CBC WITH AUTO DIFFERENTIAL Routine 09/22/2024 11:00 AM SUPERVISOR EXTRUSION Gross hematuria Routine general medical examination at a [facility] care facility C-REACTIVE PROTEIN Routine 09/22/2024 11:00 AM SUPERVISOR EXTRUSION Gross hematuria Routine general medical examination at a [facility] care facility CREATININE Routine 09/22/2024 11:00 AM SUPERVISOR EXTRUSION Gross hematuria Routine general medical examination at a [facility] care facility HEPATIC FUNCTION PANEL Routine 09/22/2024 11:00 AM SUPERVISOR EXTRUSION Gross hematuria Routine general medical examination at a [facility] facility CBC WITH AUTO DIFFERENTIAL Routine 09/22/2024 11:00 AM SUPERVISOR EXTRUSION Gross hematuria Routine general medical examination at a [facility] care facility COVID/FLU/RSV PANEL Today 09/18/2024 2 :08 PM SUPERVISOR EXTRUSION UA W/ SEDIMENT EXAM REFLEXED PER CRITERIA STAT 09/18/2024 2:[address] ABDOMEN PELVIS W STAT 09/18/2024 1 :52 PM SUPERVISOR EXTRUSION XR CHEST 1 VIEW PICC OR CVAD PLACEMENT PORTABLE STAT 09/18/2024 12:29 PM SUPERVISOR EXTRUSION SEDIMENTATION RATE TREV 09/18/2024 11:54 AM SUPERVISOR EXTRUSION CBC WITH AUTO DIFFERENTIAL TREV 09/18/2024 11:54 AM SUPERVISOR EXTRUSION CBC WITH AUTO DIFFERENTIAL TREV 09/18/2024 11:54 AM SUPERVISOR EXTRUSION EXTRA TUBE LAVENDER Today 09/18/2024 11:54 AM SUPERVISOR EXTRUSION C-REACTIVE PROTEIN TREV 09/18/2024 11:47 AM SUPERVISOR EXTRUSION HEPATIC FUNCTION PANEL TREV 09/18/2024 11:47 AM SUPERVISOR EXTRUSION BASIC METABOLIC PANEL STAT 09/18/2024 11:47 AM SUPERVISOR EXTRUSION CBC WITH AUTO DIFFERENTIAL Routine 09/17/2024 9:05 AM SUPERVISOR EXTRUSION Spinal stenosis of lumbar region with neurogenic claudication CLOSTRIDIOIDES DIFFICILE TOXIN PCR Routine 09/17/2024 9:05 AM SUPERVISOR EXTRUSION Acute diarrhea HEPATIC FUNCTION PANEL Routine 09/17/2024 9:05 AM SUPERVISOR EXTRUSION Spinal stenosis of lumbar region with neurogenic claudication C-REACTIVE PROTEIN Routine 09/17/2024 9: 05 AM SUPERVISOR EXTRUSION Spinal stenosis of lumbar region with neurogenic claudication CREATININE Routine 09/17/2024 9:05 AM SUPERVISOR EXTRUSION Spinal stenosis of lumbar region with neurogenic claudication CBC WITH AUTO DIFFERENTIAL Routine 09/17/2024 9:05 AM SUPERVISOR EXTRUSION Spinal stenosis of lumbar region with neurogenic claudication URINALYSIS MACROSCOPIC - [facility] ONLY POC DIP ([facility]) Routine 09/11/2024 2:04 PM SUPERVISOR EXTRUSION Dysuria Flank pain URINALYSIS MICROSCOPIC Routine 09/11/2024 1:30 PM SUPERVISOR EXTRUSION Dysuria Flank pain URINE CULTURE Routine 09/11/2024 1:30 PM SUPERVISOR EXTRUSION Dysuria Flank pain WHITE BLOOD COUNT Routine 09/08/2024 12:17 PM SUPERVISOR EXTRUSION Wound infection C-REACTIVE PROTEIN Routine 09/08/2024 12:17 PM SUPERVISOR EXTRUSION Wound infection CT ABDOMEN PELVIS WO STAT 09/05/2024 8:17 AM SUPERVISOR EXTRUSION H/O lumbosacral spine surgery CBC WITH AUTO DIFFERENTIAL Routine 09/01/2024 11:00 AM SUPERVISOR EXTRUSION Gross hematuria Routine general medical examination at a health care facility C-REACTIVE PROTEIN Routine 09/01/2024 11:00 AM SUPERVISOR EXTRUSION Gross hematuria Routine general medical examination at a [facility] care facility CREATININE Routine 09/01/2024 11:00 AM SUPERVISOR EXTRUSION Gross hematuria Routine general medical examination at a [facility] care facility HEPATIC FUNCTION PANEL Routine 09/01/2024 11:00 AM SUPERVISOR EXTRUSION Gross hematuria Routine general medical examination at a [facility] care facility CBC WITH AUTO DIFFERENTIAL Routine 09/01/2024 11:00 AM SUPERVISOR EXTRUSION Gross hematuria Routine general medical examination at a [facility] care facility CBC WITH AUTO DIFFERENTIAL Routine 08/28/2024 10:00 AM SUPERVISOR EXTRUSION Gross hematuria Routine general medical examination at a health care facility C-REACTIVE PROTEIN Routine 08/28/2024 10:00 AM SUPERVISOR EXTRUSION Gross hematuria Routine general medical examination at a [facility] facility CREATININE Routine 08/28/2024 10:00 AM SUPERVISOR EXTRUSION Gross hematuria Routine general medical examination at a [facility] care facility HEPATIC FUNCTION PANEL Routine 08/28/2024 10:00 AM SUPERVISOR EXTRUSION Gross hematuria Routine general medical examination at a health care facility CBC WITH AUTO DIFFERENTIAL Routine 08/28/2024 10:00 AM SUPERVISOR EXTRUSION Gross hematuria Routine general medical examination at a health care facility XR SPINE LUMBAR 2 VIEWS STANDING Routine 08/26/2024 2:15 PM SUPERVISOR EXTRUSION S/P lumbar fusion CBC WITH AUTO DIFFERENTIAL Routine 08/19/2024 11:00 AM SUPERVISOR EXTRUSION Spinal stenosis of lumbar region with neurogenic claudication HEPATIC FUNCTION PANEL Routine 08/19/2024 11:00 AM SUPERVISOR EXTRUSION Spinal stenosis of lumbar region with neurogenic claudication CBC WITH AUTO DIFFERENTIAL Routine 08/19/2024 11:00 AM SUPERVISOR EXTRUSION Spinal stenosis of lumbar region with neurogenic claudication C-REACTIVE PROTEIN Routine 08/19/2024 11:00 AM SUPERVISOR EXTRUSION Spinal stenosis of lumbar region with neurogenic claudication CREATININE Routine 08/19/2024 11:00 AM SUPERVISOR EXTRUSION Spinal stenosis of lumbar region with neurogenic claudication GLUCOSE METER Timed 08/15/2024 11:39 AM SUPERVISOR EXTRUSION GLUCOSE METER Timed 08/15/2024 8:54 AM SUPERVISOR EXTRUSION GLUCOSE METER Timed 08/14/2024 9:31 PM SUPERVISOR EXTRUSION GLUCOSE METER Timed 08/14/2024 4:26 PM SUPERVISOR EXTRUSION GLUCOSE METER Timed 08/14/2024 12:20 PM SUPERVISOR EXTRUSION GLUCOSE METER Timed 08/14/2024 11:05 AM SUPERVISOR EXTRUSION GLUCOSE METER Timed 08/14/2024 8:07 AM SUPERVISOR EXTRUSION POTASSIUM Early AM 08/14/2024 7:28 AM SUPERVISOR EXTRUSION GLUCOSE METER Timed 08/14/2024 2:03 AM SUPERVISOR EXTRUSION SCAN-ELECTROCARDIOGR AM EKG 08/14/2024 12:00 AM SUPERVISOR EXTRUSION GLUCOSE METER Timed 08/13/2024 9:33 PM SUPERVISOR EXTRUSION GLUCOSE METER Timed 08/13/2024 5:52 PM SUPERVISOR EXTRUSION GLUCOSE METER Timed 08/13/2024 2:12 PM SUPERVISOR EXTRUSION GLUCOSE METER Timed 08/13/2024 12:16 PM SUPERVISOR EXTRUSION POTASSIUM Early AM 08/13/2024 10:33 AM SUPERVISOR EXTRUSION GLUCOSE METER Timed 08/13/2024 9:30 AM SUPERVISOR EXTRUSION AEROBIC BACTERIAL CULTURE, STAIN Today 08/13/2024 8:18 AM SUPERVISOR EXTRUSION ANAEROBIC CULTURE Today 08/13/2024 8:1 8 AM SUPERVISOR EXTRUSION AEROBIC BACTERIAL CULTURE, STAIN Today 08/13/2024 8:13 AM SUPERVISOR EXTRUSION ANAEROBIC CULTURE Today 08/13/2024 8:1 3 AM SUPERVISOR EXTRUSION TISSUE CULTURE, STAIN (AEROBIC) Today 08/13/2024 8:11 AM SUPERVISOR EXTRUSION ANAEROBIC CULTURE Today 08/13/2024 8:1 1 AM SUPERVISOR EXTRUSION ENDOTRACHEAL TUBE Routine 08/13/2024 7:5 3 AM SUPERVISOR EXTRUSION ENDOTRACHEAL TUBE Routine 08/13/2024 7:5 3 AM SUPERVISOR EXTRUSION ENDOTRACHEAL TUBE Routine 08/13/2024 7:5 3 AM SUPERVISOR EXTRUSION INCISION DRAINAGE WOUND 08/13/2024 7:05 AM SUPERVISOR EXTRUSION Wound infection Case Notes AVERAGE SWING PRONElami tray3 litter of antibiotic solution GLUCOSE METER Timed 08/13/2024 6:22 AM SUPERVISOR EXTRUSION GLUCOSE METER Timed 08/13/2024 2:42 AM SUPERVISOR EXTRUSION UA W/ SEDIMENT EXAM REFLEXED PER CRITERIA Today 08/13/2024 12:19 AM SUPERVISOR EXTRUSION GLUCOSE METER Timed 08/12/2024 9:55 PM SUPERVISOR EXTRUSION GLUCOSE METER Timed 08/12/2024 5:37 PM SUPERVISOR EXTRUSION GLUCOSE METER Timed 08/12/2024 12:29 PM SUPERVISOR EXTRUSION C-REACTIVE PROTEIN Today 08/12/2024 11:55 AM SUPERVISOR EXTRUSION SEDIMENTATION RATE Today 08/12/2024 11:55 AM SUPERVISOR EXTRUSION WHITE BLOOD COUNT Today 08/12/2024 11:55 AM SUPERVISOR EXTRUSION POTASSIUM Early AM 08/12/2024 6:56 AM SUPERVISOR EXTRUSION GLUCOSE METER Timed 08/12/2024 6:29 AM SUPERVISOR EXTRUSION GLUCOSE METER Timed 08/12/2024 2:18 AM SUPERVISOR EXTRUSION GLUCOSE METER Timed 08/11/2024 10:27 PM SUPERVISOR EXTRUSION GLUCOSE METER Timed 08/11/2024 5:22 PM SUPERVISOR EXTRUSION GLUCOSE METER Timed 08/11/2024 12:04 PM SUPERVISOR EXTRUSION GLUCOSE METER Timed 08/11/2024 7:54 AM SUPERVISOR EXTRUSION CBC WITH AUTO DIFFERENTIAL Early AM 08/11/2024 7:14 AM SUPERVISOR EXTRUSION SEDIMENTATION RATE Early AM 08/11/2024 7: 14 AM SUPERVISOR EXTRUSION C-REACTIVE PROTEIN Early AM 08/11/2024 7: 14 AM SUPERVISOR EXTRUSION POTASSIUM Early AM 08/11/2024 7:14 AM SUPERVISOR EXTRUSION CBC WITH AUTO DIFFERENTIAL Early AM 08/11/2024 7:14 AM SUPERVISOR EXTRUSION GLUCOSE METER Timed 08/11/2024 2:10 AM SUPERVISOR EXTRUSION GLUCOSE METER Timed 08/10/2024 9:15 PM SUPERVISOR EXTRUSION GLUCOSE METER Timed 08/10/2024 5:24 PM SUPERVISOR EXTRUSION AEROBIC BACTERIAL CULTURE, STAIN Today 08/10/2024 2:46 PM SUPERVISOR EXTRUSION GLUCOSE METER Timed 08/10/2024 12:14 PM SUPERVISOR EXTRUSION GLUCOSE METER Timed 08/10/2024 8:13 AM SUPERVISOR EXTRUSION POTASSIUM Early AM 08/10/2024 7:00 AM SUPERVISOR EXTRUSION GLUCOSE METER Timed 08/10/2024 6:03 AM SUPERVISOR EXTRUSION GLUCOSE METER Timed 08/10/2024 2:04 AM SUPERVISOR EXTRUSION GLUCOSE METER Timed 08/09/2024 10:14 PM SUPERVISOR EXTRUSION GLUCOSE METER Timed 08/09/2024 5:55 PM SUPERVISOR EXTRUSION GLUCOSE METER Timed 08/09/2024 12:21 PM SUPERVISOR EXTRUSION VANCOMYCIN TROUGH Timed 08/09/2024 9:3 5 AM SUPERVISOR EXTRUSION C-REACTIVE PROTEIN Early AM 08/09/2024 9: 35 AM SUPERVISOR EXTRUSION CREATININE Early AM 08/09/2024 9:35 AM SUPERVISOR EXTRUSION POTASSIUM Early AM 08/09/2024 9:35 AM SUPERVISOR EXTRUSION SODIUM Early AM 08/09/2024 9:35 AM SUPERVISOR EXTRUSION MAGNESIUM Early AM 08/09/2024 9:35 AM SUPERVISOR EXTRUSION CBC W PLT NO DIFF Early AM 08/09/2024 9:3 4 AM SUPERVISOR EXTRUSION GLUCOSE METER Timed 08/09/2024 8:00 AM SUPERVISOR EXTRUSION GLUCOSE METER Timed 08/09/2024 2:04 AM SUPERVISOR EXTRUSION GLUCOSE METER Timed 08/08/2024 9:25 PM SUPERVISOR EXTRUSION GLUCOSE METER Timed 08/08/2024 4:47 PM SUPERVISOR EXTRUSION GLUCOSE METER Timed 08/08/2024 11:41 AM SUPERVISOR EXTRUSION GLUCOSE METER Timed 08/08/2024 6:36 AM SUPERVISOR EXTRUSION CREATININE Early AM 08/08/2024 6:27 AM SUPERVISOR EXTRUSION SODIUM Early AM 08/08/2024 6:27 AM SUPERVISOR EXTRUSION MAGNESIUM Early AM 08/08/2024 6:27 AM SUPERVISOR EXTRUSION C-REACTIVE PROTEIN Early AM 08/08/2024 6: 27 AM SUPERVISOR EXTRUSION CBC W PLT NO DIFF Early AM 08/08/2024 6:2 7 AM SUPERVISOR EXTRUSION POTASSIUM Early AM 08/08/2024 6:27 AM SUPERVISOR EXTRUSION GLUCOSE METER Timed 08/08/2024 2:30 AM SUPERVISOR EXTRUSION GLUCOSE METER Timed 08/07/2024 10:22 PM SUPERVISOR EXTRUSION GLUCOSE METER Timed 08/07/2024 4:19 PM SUPERVISOR EXTRUSION ANAEROBIC CULTURE Today 08/07/2024 10:07 AM SUPERVISOR EXTRUSION AEROBIC BACTERIAL CULTURE, STAIN Today 08/07/2024 10:07 AM SUPERVISOR EXTRUSION GLUCOSE METER Timed 08/07/2024 9:[address] ASPIRATION PELVIS TREV 08/07/2024 9:42 AM SUPERVISOR EXTRUSION CBC WITH AUTO DIFFERENTIAL Early AM 08/07/2024 6:44 AM SUPERVISOR EXTRUSION PROTIME-INR Early AM 08/07/2024 6:44 AM SUPERVISOR EXTRUSION C-REACTIVE PROTEIN Early AM 08/07/2024 6: 44 AM SUPERVISOR EXTRUSION CBC WITH AUTO DIFFERENTIAL Early AM 08/07/2024 6:44 AM SUPERVISOR EXTRUSION MAGNESIUM Early AM 08/07/2024 6:44 AM SUPERVISOR EXTRUSION BASIC METABOLIC PANEL Early AM 08/07/2024 6:44 AM SUPERVISOR EXTRUSION GLUCOSE METER Timed 08/07/2024 2:48 AM SUPERVISOR EXTRUSION GLUCOSE METER Timed 08/06/2024 9:44 PM SUPERVISOR EXTRUSION GLUCOSE METER Timed 08/06/2024 5:19 PM SUPERVISOR EXTRUSION POTASSIUM Timed 08/06/2024 5:02 PM SUPERVISOR EXTRUSION GLUCOSE METER Timed 08/06/2024 3:[address] PELVIS W STAT 08/06/2024 1:51 PM SUPERVISOR EXTRUSION GLUCOSE METER Timed 08/06/2024 11:21 AM SUPERVISOR EXTRUSION GLUCOSE METER Timed 08/06/2024 7:41 AM SUPERVISOR EXTRUSION BASIC METABOLIC PANEL Early AM 08/06/2024 5:06 AM SUPERVISOR EXTRUSION CBC W PLT NO DIFF Early AM 08/06/2024 5:0 6 AM SUPERVISOR EXTRUSION XR MAMMO [place] BILAT SCREEN Routine 08/23/2023 1:18 PM SUPERVISOR EXTRUSION Visit for screening mammogram LDL CHOLESTEROL,DIRECT Routine 08/16/2023 10:51 AM SUPERVISOR EXTRUSION Diabetes mellitus without complication (HC) COLONOSCOPY SCREENING Routine 12/16/2021 8:02 AM CDT Screening for colon cancer ANTI HIV 1/2 Add On 12/31/2018 10:40 AM CDT Has multiple sexual partners ACUTE HEPATITIS PANEL Routine 03/07/2010 3:18 PM CDT Routine screening for STI (sexually transmitted infection) from Last 3 Months or Most Recently Relevant to Health Maintenance Results * (ABNORMAL) GLUCOSE METER (10/01/2024 12:24 PM SUPERVISOR EXTRUSION) Only the most recent of58 resultswithin the time period is included. GLUCOSE METER 188(H) 65 - 100 mg/dL 10/01/2024 12:25 PM SUPERVISOR EXTRUSION [facility] Blood BLOOD SPECIMEN / Unknown 10/01/2024 12:24 PM SUPERVISOR EXTRUSION 10/01/2024 12:25 PM SUPERVISOR EXTRUSION Result [facility] Tana Edwards [facility] CHEMISTRY Fi nal Result Performing Organization Address City/[facility]/ZIP Co de Phone Number [facility] SENDOUT INTERNAL ZIP [phone] [place] [phone] * POTASSIUM (10/01/2024 5:52 AM SUPERVISOR EXTRUSION) Only the most recent of10 resultswithin the time period is included. POTASSIUM 4.1 3.5 - 5.1 mmol/L 10/01/2024 8:01 AM SUPERVISOR EXTRUSION [facility] Blood BLOOD SPECIMEN / Unknown Venipuncture / Unknown 10/01/2024 5:52 AM SUPERVISOR EXTRUSION 10/01/2024 6:12 AM SUPERVISOR EXTRUSION Result [facility] Tana Edwards [facility] [place] CHEMISTRY Fi nal Result Performing Organization Address City/[facility]/ZIP Co de Phone Number [facility] SENDOUT [place] ZIP [phone] [place] [phone] * (ABNORMAL) MAGNESIUM (10/01/2024 5:52 AM SUPERVISOR EXTRUSION) Only the most recent of5 resultswithin the time period is included. MAGNESIUM 1.5(L) 1.6 - 2.6 mg/dL 10/01/2024 7:00 AM SUPERVISOR EXTRUSION [facility] Blood BLOOD SPECIMEN / Unknown Venipuncture / Unknown 10/01/2024 5:52 AM SUPERVISOR EXTRUSION 10/01/2024 6:12 AM SUPERVISOR EXTRUSION Result [facility] Tana GRIMES CHEMISTRY Fi nal Result [facility] SENDOUT [place]NAL ZIP [phone] [place] [phone] * (ABNORMAL) CBC (09/30/2024 5:10 AM [facility]) Only the most recent of5 resultswithin the time period is included. WHITE BLOOD COUNT 8.1 4.5 - 11.0 thou/cu mm 09/30/2024 6:11 AM [facility] RED BLOOD COUNT 4.10 4.00 - 5.20 mil/cu mm 09/30/2024 6:11 AM [facility] HEMOGLOBIN 10.0(L) 12.0 - 16.0 g/dL 09/30/2024 6:11 AM [facility] HEMATOCRIT 31.8(L) 33.0 - 51.0 % 09/30/2024 6:11 AM [facility] MCV 78(L) 80 - 100 fL 09/30/2024 6:11 AM [facility] MCH 24.4(L) 26.0 - 34.0 pg 09/30/2024 6:11 AM [facility] MCHC 31.4(L) 32.0 - 36.0 g/dL 09/30/2024 6:11 AM [facility] RDW 15.8(H) 11.5 - 15.5 % 09/30/2024 6:11 AM [facility] PLATELET COUNT 315 140 - 440 thou/cu mm 09/30/2024 6:11 AM [facility] MPV 9.6 6.5 - 11.0 fL 09/30/2024 6:11 AM [facility] NRBC 0.0 % 09/30/2024 6:11 AM [facility] ABS NRBC 0.0 thou /cu mm 09/30/2024 6:11 AM [facility] Blood BLOOD SPECIMEN / Unknown Venipuncture / Unknown 09/30/2024 5:10 AM SUPERVISOR EXTRUSION 09/30/2024 6:03 AM [facility] LABORATORY - 09/30/2024 6:11 AM SUPERVISOR EXTRUSION Call if Hemoglobin less than 10. us Ja [facility] HEMAT[facility] Final Result [facility] SENDOUT [place]NAL ZIP [phone] [place] [phone] * (ABNORMAL) Basic Metabolic Panel (09/30/2024 5:10 AM [facility]) Only the most recent of5 resultswithin the time period is included. SODIUM 143 136 - 145 mmol/L 09/30/2024 6:34 AM [facility] POTASSIUM 3.0(L) 3.5 - 5.1 mmol/L 09/30/2024 6:34 AM [facility] CHLORIDE 105 98 - 107 mmol/L 09/30/2024 6:34 AM [facility] CO2,TOTAL 28 22 - 29 mmol/L 09/30/2024 6:34 AM [facility] ANION GAP 10 5 - 18 09/30/2024 6:34 AM [facility] GLUCOSE 144(H) 70 - 99 mg/dL 09/30/2024 6:34 AM [facility] CALCIUM 8.9 8.8 - 10.4 mg/dL 09/30/2024 6:34 AM [facility] Comment: Reference ranges for this test were updated on 07/01/2024 to reflect our healthy population more accurately. Reference range changes are not retroactively applied to results, but previous results using the same methodology can be interpreted in the context of the new reference range. BUN 4(L) 6 - 20 mg/dL 09/30/2024 6:34 AM [facility] CREATININE 0.62 0.50 - 0.90 mg/dL 09/30/2024 6:34 AM [facility] BUN/CREAT RATIO 6(L) 10 - 20 6:34 AM [facility] eGFR >90 >90 mL/min/1. 73m2 09/30/2024 6:34 AM [facility] Comment:As of 2021, eG FR is calculated by the CKD-EPI creatinine equation without race adjustment. eGFR can be influenced by muscle mass, exercise, and diet. The reported eGFR is an estimation only and is only applicable if the renal function is stable. Blood BLOOD SPECIMEN / Unknown Venipuncture / Unknown 09/30/2024 5:10 AM SUPERVISOR EXTRUSION 09/30/2024 6:03 AM SUPERVISOR EXTRUSION us Ja [facility] CHEMISTRY Final Result [facility] SENDOUT [place]IP [phone] [place] [address] * XR CHEST 1 VIEW PORTABLE (09/30/2024 12:18 AM SUPERVISOR EXTRUSION) Anatomical Region Laterality Modality HEART, THORAX, CHEST Computed Ra diography 09/30/2024 12:1 8 AM SUPERVISOR EXTRUSION Impressions 09/30/2024 1:11 AM SUPERVISOR EXTRUSION Right PICC line tip over the upper SVC. Normal heart size and pulmonary vascularity. Lungs are clear. Narrative 09/30/2024 1:11 AM SUPERVISOR EXTRUSION For Patients: As a result of the Cures Act, medical imaging exams and procedure reports are released immediately into your electronic medical record. You may view this report before your referring provider. If you have questions, please contact your health care provider. EXAM: XR CHEST 1 VIEW PORTABLE LOCATION: [facility] DATE: 09/30/2024 INDICATION: Line placement. COMPARISON: 09/18/2024. Procedure Note Randy Cano MD - 09/30/2024 For Patients: As a result of the Cures Act, medical imagingexams and procedure reports are released immediately into your electronicmedical record. You may view this report before your referring provider.If you have questions, please contact your health care provider. EXAM: XR CHEST 1 VIEW PORTABLE LOCATION: [facility] DATE: 09/30/2024 INDICATION: Line placement. COMPARISON: 09/18/2024. IMPRESSION: Right PICC line tip over the upper SVC. Normal heart size and pulmonaryvascularity. Lungs are clear. us Ridge Colindres MD GENERAL IMAGING Fin al Result * (ABNORMAL) TISSUE CULTURE, STAIN (AEROBIC) (09/29/2024 5:16 PM SUPERVISOR EXTRUSION) Only the most recent of2 resultswithin the time period is included. CULTURE RESULT(A) 10/02/2024 9:56 AM SUPERVISOR EXTRUSION [facility] CULTURE 1+ Staphylococcus coagulase negative 10/02/2024 9:56 AM SUPERVISOR EXTRUSION [facility] GRAM STAIN 1+ PMNs 10/02/2024 9:56 AM SUPERVISOR EXTRUSION [facility] GRAM STAIN 1+ Epithelial cells 10/02/2024 9:56 AM SUPERVISOR EXTRUSION [facility] GRAM STAIN No RBCs 10/02/2024 9:56 AM SUPERVISOR EXTRUSION [facility] GRAM STAIN No organisms seen 025 9:56 AM SUPERVISOR EXTRUSION [facility] GRAM STAIN Gram stain performed by [place], [place] 10/02/2024 9:56 AM SUPERVISOR EXTRUSION [facility] Tissue SPECIMEN FROM ABDOMINAL CAVITY / Unknown Non-Blood / Unknown 09/29/2024 5:16 PM SUPERVISOR EXTRUSION 09/29/2024 5:45 PM SUPERVISOR EXTRUSION Narrative Organism Antibiotic Method Susceptibility Staphylococcus coagulase negative OXACILLIN >=4: R Staphylococcus coagulase negative CLINDAMYCIN 0.25: S Staphylococcus coagulase negative DOXYCYCLINE <=0.5: S Staphylococcus coagulase negative CEFAZOLIN R Staphylococcus coagulase negative VANCOMYCIN 1: S Staphylococcus coagulase negative TRIMETHOPRIM/SULF 4: R Tana Edwards [facility] MICROBIOLOGY Fi nal Result Performing Organization Address City/[facility]/ZIP Co de Phone Number [facility] [address] [place] [address], [facility] SENDOUT INTERNAL ZIP [phone] [place] [address] * ANAEROBIC CULTURE (09/29/2024 5:16 PM SUPERVISOR EXTRUSION) Only the most recent of5 resultswithin the time period is included. CULTURE No anaerobes isolated 10/06/2024 12:02 PM SUPERVISOR EXTRUSION [facility] TRAL LABORAT[facility] Tissue SPECIMEN FROM ABDOMINAL CAVITY / Unknown Non-Blood / Unknown 09/29/2024 5:16 PM SUPERVISOR EXTRUSION 09/29/2024 5:45 PM SUPERVISOR EXTRUSION [facility] Fi nal Result [facility] [address] [place] [phone], * HCHG TUBE PR1, HCHG STYLET PR1, HCHG MOUTHPIECE PR1 (09/29/2024 5:04 PM SUPERVISOR EXTRUSION) Narrative Raul Issa CRNA - 09/29/2024 5:04 PM SUPERVISOR EXTRUSION Raul Issa CRNA 09/29/2024 5:05 PM Procedure: ETT Patient location during procedure: OR ETT Properties Mask Ventilation: easy Final Technique: direct laryngoscopy Type: straight Location: oral Cuffed: yes Tube Size: 7.0 mm Stylet: yes Laryngoscope Blade: Briggs Blade Size: 2 Cormack-Lehane Grade View: 1 Insertion Attempts: 1 Placement Verification: auscultation and end tidal CO2 Assessment: pharynx clear, atraumatic and dentition unchanged Secured at: 21 Measured From: lips Tooth guard used and removed: yes Difficulty: 0 (not difficult) Adonay Franco MD ANESTHESIA PX NOTE ORDERABLES Final Result * (ABNORMAL) GLUCOSE, RANDOM (09/29/2024 2:42 PM SUPERVISOR EXTRUSION) Pathologist [facility] GLUCOSE,RANDOM 184(H) 70 - 139 mg/dL 09/29/2024 3:14 PM SUPERVISOR EXTRUSION [facility] Blood BLOOD SPECIMEN / Unknown Butterfly / Unknown 09/29/2024 2:42 PM SUPERVISOR EXTRUSION 09/29/2024 2:46 PM SUPERVISOR EXTRUSION Tana GRIMES CHEMISTRY Fi nal Result [facility] SENDOUT [place]NAL ZIP [phone] [place] [address] * MR SPINE LUMBAR WWO (09/29/2024 11:28 AM SUPERVISOR EXTRUSION) Anatomical Region Laterality Modality Spine, LUMBAR SPINE Magnetic Res onance 09/29/2024 11:2 8 AM SUPERVISOR EXTRUSION Impressions 09/29/2024 12:23 PM SUPERVISOR EXTRUSION 1. Postoperative and mild degenerative change of the lumbar spine as detailed above. 2. No high-grade spinal canal or high-grade neural foraminal stenosis at any level of the lumbar spine. 3. Postoperative fluid collection in the midline posterior paraspinous tissues extending from L3-L4 down to the mid sacrum again noted without appreciable change. While this fluid collection is not necessarily infected, infection cannot be excluded. Clinical correlation recommended. Narrative 09/29/2024 12:23 PM SUPERVISOR EXTRUSION For Patients: As a result of the Cures Act, medical imaging exams and procedure reports are released immediately into your electronic medical record. You may view this report before your referring provider. If you have questions, please contact your health care provider. EXAM: MR SPINE LUMBAR WWO LOCATION: [facility] DATE: 09/29/2024 INDICATION: Postoperative infection, unspecified type, sequela. COMPARISON: Lumbar spine x-ray series 08/26/2024, abdomen and pelvis CT 09/18/2024. CONTRAST: Clariscan 14 mL TECHNIQUE: Routine Lumbar Spine MRI without and with IV contrast. FINDINGS: Nomenclature is based on 5 lumbar type vertebral bodies. Anterior and posterior spine fusion hardware from L4 down to S1 again noted. Alignment of the lumbar vertebrae is normal. Vertebral body heights normal. Marrow signal normal. No evidence for fracture or pathologic bony lesion. Laminotomies of L4 and L5 again noted. Fluid and gas in the posterior midline paraspinous tissues extending from L3-L4 down to the mid sacrum again noted without definite change from the comparison CT. There is edema and enhancement in the soft tissues surrounding this fluid collection. While this does not necessarily represent infected fluid, infection cannot be completely excluded. No other paraspinous abnormalities. Normal distal spinal cord and cauda equina with conus medullaris at L1-L2. Unremarkable visualized bony pelvis. T12-L1: Normal disc height and signal. No herniation. Normal facets. No spinal canal or neural foraminal stenosis. L1-L2: There is loss of disc height, disc desiccation and mild circumferential disc bulging. No herniation. Normal facets. No spinal canal or neural foraminal stenosis. L2-L3: There is loss of disc height, disc desiccation and mild circumferential disc bulging. No herniation. Normal facets. No spinal canal or neural foraminal stenosis. L3-L4: There is loss of disc height, disc desiccation and mild circumferential disc bulging. No herniation. Normal facets. No spinal canal stenosis. Mild left foraminal narrowing. No right foraminal narrowing. L4-L5: (Fused level) No spinal canal stenosis. Mild right foraminal narrowing. No left foraminal narrowing. L5-S1: (Fused level) No spinal canal stenosis. Mild bilateral neural foraminal narrowing. Procedure Note Leonel Blanca MD - 09/29/2024 For Patients: As a result of the Cures Act, medical imagingexams and procedure reports are released immediately into your electronicmedical record. You may view this report before your referring provider.If you have questions, please contact your health care provider. EXAM: MR SPINE LUMBAR WWO LOCATION: [facility] DATE: 09/29/2024 INDICATION: Postoperative infection, unspecified type, sequela. COMPARISON: Lumbar spine x-ray series 08/26/2024, abdomen and pelvis CT09/18/2024. CONTRAST: Clariscan 14 mL TECHNIQUE: Routine Lumbar Spine MRI without and with IV contrast. FINDINGS: Nomenclature is based on 5 lumbar type vertebral bodies.Anterior and posterior spine fusion hardware from L4 down to S1 againnoted. Alignment of the lumbar vertebrae is normal. Vertebral body heightsnormal. Marrow signal normal. No evidence for fracture or pathologic bonylesion. Laminotomies of L4 and L5 again noted. Fluid and gas in theposterior midline paraspinous tissues extending from L3-L4 down to the midsacrum again noted without definite change from the comparison CT. Thereis edema and enhancement in the soft tissues surrounding this fluidcollection. While this does not necessarily represent infected fluid,infection cannot be completely excluded. No other paraspinousabnormalities. Normal distal spinal cord and cauda equina with conusmedullaris at L1-L2. Unremarkable visualized bony pelvis. T12-L1: Normal disc height and signal. No herniation. Normal facets. Nospinal canal or neural foraminal stenosis. L1-L2: There is loss of disc height, disc desiccation and mildcircumferential disc bulging. No herniation. Normal facets. No spinalcanal or neural foraminal stenosis. L2-L3: There is loss of disc height, disc desiccation and mildcircumferential disc bulging. No herniation. Normal facets. No spinalcanal or neural foraminal stenosis. L3-L4: There is loss of disc height, disc desiccation and mildcircumferential disc bulging. No herniation. Normal facets. No spinalcanal stenosis. Mild left foraminal narrowing. No right foraminalnarrowing. L4-L5: (Fused level) No spinal canal stenosis. Mild right foraminalnarrowing. No left foraminal narrowing. L5-S1: (Fused level) No spinal canal stenosis. Mild bilateral neuralforaminal narrowing. IMPRESSION: 1. Postoperative and mild degenerative change of the lumbar spine asdetailed above. 2. No high-grade spinal canal or high-grade neural foraminal stenosis atany level of the lumbar spine. 3. Postoperative fluid collection in the midline posterior paraspinoustissues extending from L3-L4 down to the mid sacrum again noted withoutappreciable change. While this fluid collection is not necessarilyinfected, infection cannot be excluded. Clinical correlationrecommended. Mari Elam MD MR Final Re sult * SCAN-CARDIAC STRIP (09/29/2024 12:00 AM SUPERVISOR EXTRUSION) Narrative 09/29/2024 12:00 AM SUPERVISOR EXTRUSION Ordered by an unspecified provider. Other Clinical Staff OTHER Final Resul t * (ABNORMAL) AEROBIC BACTERIAL CULTURE, STAIN (09/25/2024 11:19 AM SUPERVISOR EXTRUSION) Only the most recent of5 resultswithin the time period is included. CULTURE RESULT(A) 09/27/2024 10:55 AM SUPERVISOR EXTRUSION [facility] CULTURE 3+ Staphylococcus coagulase negative 09/27/2024 10:55 AM SUPERVISOR EXTRUSION [facility] GRAM STAIN 1+ PMNs 09/27/2024 10:55 AM SUPERVISOR EXTRUSION [facility] GRAM STAIN 2+ Gram Positive Cocci 09/27/2024 10:55 AM SUPERVISOR EXTRUSION [facility] GRAM STAIN 3+ RBCs 09/27/2024 10:55 AM SUPERVISOR EXTRUSION [facility] GRAM STAIN No Epithelial cells 09/27/2024 10:55 AM SUPERVISOR EXTRUSION [facility] GRAM STAIN Gram stain performed by [place], [place] 09/27/2024 10:55 AM SUPERVISOR EXTRUSION [facility] Other (Other) Non-Blood / Unknown 09/25/2024 11:19 AM SUPERVISOR EXTRUSION 09/25/2024 11:19 AM SUPERVISOR EXTRUSION Narrative Organism Antibiotic Method Susceptibility Staphylococcus coagulase negative OXACILLIN >=4: R Staphylococcus coagulase negative CLINDAMYCIN >=4: R Staphylococcus coagulase negative DOXYCYCLINE 1: S Staphylococcus coagulase negative CEFAZOLIN R Staphylococcus coagulase negative VANCOMYCIN 1: S Staphylococcus coagulase negative TRIMETHOPRIM/SULF 76: R Jo-Ann Oquendo NP MICROBIOLOGY Final Result [facility] [address] [place] [address], [facility] SENDOUT [place]NAL [phone] [place] [address] * (ABNORMAL) CBC WITH AUTO DIFFERENTIAL (09/22/2024 11:00 AM SUPERVISOR EXTRUSION) Only the most recent of8 resultswithin the time period is included. WHITE BLOOD COUNT 10.5 4.5 - 11.0 thou/cu mm 09/22/2024 12:50 PM [facility] RED BLOOD COUNT 4.33 4.00 - 5.20 mil/cu mm 09/22/2024 12:50 PM [facility] HEMOGLOBIN 10.5(L) 12.0 - 16.0 g/dL 09/22/2024 12:50 PM [facility] HEMATOCRIT 33.7 33.0 - 51.0 % 09/22/2024 12:50 PM [facility] MCV 78(L) 80 - 100 fL 09/22/2024 12:50 PM [facility] MCH 24.2(L) 26.0 - 34.0 pg 09/22/2024 12:50 PM [facility] MCHC 31.2(L) 32.0 - 36.0 g/dL 09/22/2024 12:50 PM [facility] RDW 15.5 11.5 - 15.5 % 09/22/2024 12:50 PM [facility] PLATELET COUNT 422 140 - 440 thou/cu mm 09/22/2024 12:50 PM [facility] MPV 9.9 6.5 - 11.0 fL 09/22/2024 12:50 PM [facility] % NEUT 68.2 % 09/22/2024 12:50 PM [facility] % LYMPH 21.8 % 09/22/2024 12:50 PM [facility] % MONO 8.2 % 09/22/2024 12:50 PM [facility] % EOS 1.7 % 09/22/2024 12:50 PM [facility] % BASO 0.1 % 09/22/2024 12:50 PM [facility] ABSOLUTE NEUTROPHILS 7.2(H) 1.7 - 7.0 thou/cu mm 09/22/2024 12:50 PM [facility] ABSOLUTE LYMPHOCYTES 2.3 0.9 - 2.9 thou/cu mm 09/22/2024 12:50 PM [facility] ABSOLUTE MONOCYTES 0.9(H) <0.9 thou/cu mm 09/22/2024 12:50 PM [facility] ABSOLUTE EOSINOPHILS 0.2 <0.5 thou/cu mm 09/22/2024 12:50 PM [facility] ABSOLUTE BASOPHILS 0.0 <0.3 thou/cu mm 09/22/2024 12:50 PM [facility] Blood BLOOD SPECIMEN / Unknown Non-Lab Venipuncture / Unknown 09/22/2024 11:00 AM [facility] 09/22/2024 12:46 PM [facility] LABORATORY - 09/22/2024 12:50 PM [facility] This procedure was originally ordered at [facility]. us Justin Garsia MD HEMATOLOGY Final Result [facility] [address] [place] [address] * CREATININE (09/22/2024 11:00 AM [facility]) Only the most recent of7 resultswithin the time period is included. eGFR >90 >90 mL/min/1.7 3m2 09/22/2024 1:11 PM [facility] Comment:As of 2021, eG FR is calculated by the CKD-EPI creatinine equation without race adjustment. eGFR can be influenced by muscle mass, exercise, and diet. The reported eGFR is an estimation only and is only applicable if the renal function is stable. CREATININE 0.69 0.50 - 0.90 mg/dL 09/22/2024 1:11 PM [facility] Blood BLOOD SPECIMEN / Unknown Non-Lab Venipuncture / Unknown 09/22/2024 11:00 AM [employer]TR[employer] 09/22/2024 12:46 PM SUPERVISOR EXTRUSION Justin Garsia MD CHEMISTRY Final Result Performing Organization Address City/[facility] Co de Phone Number [facility] [address] [place] [address] * (ABNORMAL) C-REACTIVE PROTEIN (09/22/2024 11:00 AM SUPERVISOR EXTRUSION) Only the most recent of12 resultswithin the time period is included. C-REACTIVE PROTEIN 1.9(H) <0.5 mg/dL 09/22/2024 1:11 PM [facility] Blood BLOOD SPECIMEN / Unknown Non-Lab Venipuncture / Unknown 09/22/2024 11:00 AM [employer]TR[employer] 09/22/2024 12:46 PM SUPERVISOR EXTRUSION Justin Garsia MD CHEMISTRY Final Result Performing Organization Address City/[facility]/ZIP Co de Phone Number [facility] [address] [place] [address] * (ABNORMAL) HEPATIC FUNCTION PANEL (09/22/2024 11:00 AM SUPERVISOR EXTRUSION) Only the most recent of6 resultswithin the time period is included. ALBUMIN 3.4(L) 4.0 - 4.9 g/dL 09/22/2024 1:11 PM [facility] PROTEIN,TOTAL 7.0 6.0 - 8.0 g/dL 09/22/2024 1:11 PM [facility] BILIRUBIN,TOTAL 0.3 0.0 - 1.2 mg/dL 09/22/2024 1:11 PM [facility] BILIRUBIN,DIRECT 0.2 0.0 - 0.2 mg/dL 09/22/2024 1:11 PM [facility] BILIRUBIN,INDIRE CT 0.1(L) 0.2 - 0.8 mg/dL 09/22/2024 1:11 PM [facility] ALK PHOSPHATASE 122(H) 35 - 104 IU/L 09/22/2024 1:11 PM [facility] ALT (SGPT) 12 10 - 35 IU/L 09/22/2024 1:11 PM [facility] AST (SGOT) 36(H) 10 - 35 IU/L 09/22/2024 1:11 PM [facility] Blood BLOOD SPECIMEN / Unknown Non-Lab Venipuncture / Unknown 09/22/2024 11:00 AM [facility] 09/22/2024 12:46 PM [facility] Justin Garsia MD CHEMISTRY Final Result [facility] [address] [place] [address] * COVID/FLU/RSV PANEL (09/18/2024 2:08 PM [facility]) COVID 19 [facility] MOLECULAR Negative Negative 09/18/2024 3:07 PM [facility] Comment:All PCR tests are rodgers bject to false negative result due to variability in viral load and collection technique. A negative result does not rule out a SARS-CoV-2 infection. Clinical correlation required. INFLUENZA A PCR Negative 3:07 PM [facility] INFLUENZA B PCR Negative 3:07 PM [facility] Respiratory Syncytial Virus Negative 09/18/2024 3:07 PM [facility] Swab SPECIMEN FROM NASOPHARYNGEAL STRUCTURE / Unknown Non-Blood / Unknown 09/18/2024 2:08 PM SUPER[employer]TR[employer] 09/18/2024 2:24 PM SUPERVISOR EXTRUSION Elizabeth AVALOS MICROBIOLOGY Final Re sult [facility] SENDOUT INTERNAL ZIP [phone] [place] [phone] * UA W/ SEDIMENT EXAM REFLEXED PER CRITERIA (09/18/2024 2:08 PM SUPERVISOR EXTRUSION) Only the most recent of2 resultswithin the time period is included. COLOR Yellow Yellow Color 09/18/2024 2:30 PM SUPERVISOR EXTRUSION [facility] CLARITY Clear Clear Clarity 09/18/2024 2:30 PM SUPERVISOR EXTRUSION [facility] SPECIFIC GRAVITY,URINE 1.020 1.010, 1.015, 1.020, 1.025 09/18/2024 2:30 PM [facility] PH,URINE 6.5 6.0, 7.0, 8.0, 5.5, 6.5, 7.5, 8.5 09/18/2024 2:30 PM [facility] UROBILINOGEN, QUALITATIVE Normal Normal EU/dl 09/18/2024 2:30 PM [facility] PROTEIN, URINE Negative Negative mg/dL 09/18/2024 2:30 PM [facility] GLUCOSE, URINE Negative Negative mg/dL 09/18/2024 2:30 PM [facility] KETONES,URINE Negative Negative mg/dL 09/18/2024 2:30 PM [facility] BILIRUBIN,URI NE Negative Negative 09/18/2024 2:30 PM SUPERVISOR EXTRUSION [facility] OCCULT BLOOD,URINE Negative Negative 09/18/2024 2:30 PM [facility] NITRITE Negative Negative 09/18/2024 2:30 PM SUPERVISOR EXTRUSION [facility] LEUKOCYTE ESTERASE Negative Negative 09/18/2024 2:30 PM [facility] Urine URINE SPECIMEN / Unknown Non-Blood / Unknown 09/18/2024 2:08 PM SUPER[employer]TR[employer]ION 09/18/2024 2:24 PM SUPERVISOR EXTRUSION Elizabeth AVALOS URINE Final Re sult [facility] SENDOUT INTER[address] [phone] [place] [address] * CT Abdomen Pelvis w IV (Oral Contrast = NO) (09/18/2024 1:52 PM SUPERVISOR EXTRUSION) Anatomical Region Laterality Modality Abdomen, Pelvis, AORTA, LIVER, SPLEEN Computed Tomography 09/18/2024 1:52 PM SUPERVISOR EXTRUSION Impressions 09/18/2024 2:05 PM SUPERVISOR EXTRUSION 1. Atelectasis noted within the posterior surgical bed along the paraspinal muscles is slightly smaller when compared to the prior examination measuring approximately 3.8 x 4.2 x 6 cm. 2. Large area of rings inflammatory change with large soft tissue defect likely containing packing material within the subcutaneous soft tissues of the lower abdomen appears similar to prior examination. 3. No new intra-abdominal abscess. No other acute findings. Narrative 09/18/2024 2:05 PM SUPERVISOR EXTRUSION For Patients: As a result of the Cures Act, medical imaging exams and procedure reports are released immediately into your electronic medical record. You may view this report before your referring provider. If you have questions, please contact your health care provider. EXAM: CT ABDOMEN PELVIS W LOCATION: [facility] DATE: 09/18/2024 INDICATION: Postoperative changes of the spine COMPARISON: 09/05/2024 TECHNIQUE: CT scan of the abdomen and pelvis was performed following injection of IV contrast. Multiplanar reformats were obtained. Dose reduction techniques were used. CONTRAST: Omnipaque 350 75 mL FINDINGS: LOWER CHEST: Normal. HEPATOBILIARY: Hepatic steatosis. Cholecystectomy. PANCREAS: Normal. SPLEEN: Normal. ADRENAL GLANDS: Normal. KIDNEYS/BLADDER: No significant mass, stone, or hydronephrosis. BOWEL: Diverticulosis of the colon. No acute inflammatory change. No obstruction. LYMPH NODES: Normal. VASCULATURE: Normal. PELVIC ORGANS: Bladder within normal limits. Small inflammatory changes are noted within the left lower pelvis. MUSCULOSKELETAL: Postsurgical changes are noted to the lower lumbar spine from L4 to S1. There is a fluid collection in the posterior subcutaneous soft tissues from L4 to L5 vertebral bodies containing gas and fluid measuring approximately 3.8 x 4.2 x 6 cm, slightly decreased when compared to prior examination. Surrounding inflammatory changes are noted. There is a abdominal wall defect in the anterior subcutaneous soft tissues with area of fat necrosis measuring approximately 5 x 4 x 15 cm containing peripheral inflammatory changes and central fat. Procedure Note Trevor Elizabeth MD - 09/18/2024 For Patients: As a result of the Century Cures Act, medical imagingexams and procedure reports are released immediately into your electronicmedical record. You may view this report before your referring provider.If you have questions, please contact your health care provider. EXAM: CT ABDOMEN PELVIS W LOCATION: [facility] DATE: 09/18/2024 INDICATION: Postoperative changes of the spine COMPARISON: 09/05/2024 TECHNIQUE: CT scan of the abdomen and pelvis was performed followinginjection of IV contrast. Multiplanar reformats were obtained. Dosereduction techniques were used. CONTRAST: Omnipaque 350 75 mL FINDINGS: LOWER CHEST: Normal. HEPATOBILIARY: Hepatic steatosis. Cholecystectomy. PANCREAS: Normal. SPLEEN: Normal. ADRENAL GLANDS: Normal. KIDNEYS/BLADDER: No significant mass, stone, or hydronephrosis. BOWEL: Diverticulosis of the colon. No acute inflammatory change. Noobstruction. LYMPH NODES: Normal. VASCULATURE: Normal. PELVIC ORGANS: Bladder within normal limits. Small inflammatory changesare noted within the left lower pelvis. MUSCULOSKELETAL: Postsurgical changes are noted to the lower lumbar spinefrom L4 to S1. There is a fluid collection in the posterior subcutaneoussoft tissues from L4 to L5 vertebral bodies containing gas and fluidmeasuring approximately 3.8 x 4.2 x 6 cm, slightly decreased when comparedto prior examination. Surrounding inflammatory changes are noted. There donn abdominal wall defect in the anterior subcutaneous soft tissues witharea of fat necrosis measuring approximately 5 x 4 x 15 cm containingperipheral inflammatory changes and central fat. IMPRESSION: 1. Atelectasis noted within the posterior surgical bed along theparaspinal muscles is slightly smaller when compared to the priorexamination measuring approximately 3.8 x 4.2 x 6 cm. 2. Large area of rings inflammatory change with large soft tissue defectlikely containing packing material within the subcutaneous soft tissues ofthe lower abdomen appears similar to prior examination. 3. No new intra-abdominal abscess. No other acute findings. Elizabeth AVALOS CT Final Re sult * XR CHEST 1 VIEW PICC OR CVAD PLACEMENT PORTABLE (09/18/2024 12:29 PM SUPERVISOR EXTRUSION) Anatomical Region Laterality Modality HEART, THORAX, CHEST Computed Ra diography 09/18/2024 12:2 9 PM SUPERVISOR EXTRUSION Impressions 09/18/2024 12:33 PM SUPERVISOR EXTRUSION No consolidation. No pleural effusions or pneumothorax. Right PICC tip projects at the cavoatrial junction. Normal cardiac size. Narrative 09/18/2024 12:33 PM SUPERVISOR EXTRUSION For Patients: As a result of the Cures Act, medical imaging exams and procedure reports are released immediately into your electronic medical record. You may view this report before your referring provider. If you have questions, please contact your health care provider. EXAM: XR CHEST 1 VIEW PICC OR CVAD PLACEMENT PORTABLE LOCATION: [facility] DATE: 09/18/2024 INDICATION: Nausea. Vomiting. Diarrhea. Recent surgery. COMPARISON: None. Procedure Note So, Av Long MD - 09/18/2024 For Patients: As a result of the Cures Act, medical imagingexams and procedure reports are released immediately into your electronicmedical record. You may view this report before your referring provider.If you have questions, please contact your health care provider. EXAM: XR CHEST 1 VIEW PICC OR CVAD PLACEMENT PORTABLE LOCATION: [facility] DATE: 09/18/2024 INDICATION: Nausea. Vomiting. Diarrhea. Recent surgery. COMPARISON: None. IMPRESSION: No consolidation. No pleural effusions or pneumothorax. Right PICC tipprojects at the cavoatrial junction. Normal cardiac size. Elizabeth AVALOS [facility] Final Re sult * (ABNORMAL) SEDIMENTATION RATE (09/18/2024 11:54 AM SUPERVISOR [employer]TRUSION) Only the most recent of3 resultswithin the time period is included. SEDIMENTATION RATE 108(H) <30 mm/hr 2024 3:08 PM SUPERVISOR EXTRUSION [facility] Blood BLOOD SPECIMEN / Unknown Extra Tube / Unknown 09/18/2024 11:54 AM SUPERVISOR EXTRUSION 09/18/2024 11:54 AM SUPERVISOR EXTRUSION Elizabeth AVALOS HEMATOLOGY Final Re sult [facility] SENDOUT [place]IP [phone] [place] [address] * EXTRA TUBE LAVENDER (09/18/2024 11:54 AM SUPERVISOR EXTRUSION) Blood BLOOD SPECIMEN / Unknown Extra Tube / Unknown 09/18/2024 11:54 AM SUPERVISOR EXTRUSION 09/18/2024 11:54 AM SUPERVISOR EXTRUSION Doctor Unknown LABORATORY Final Result Performing Organization Address [facility]/ZIP Co de Phone Number [facility] SENDOUT INTERNAL ZIP [phone] [place] [address] * CLOSTRIDIOIDES DIFFICILE TOXIN PCR (09/17/2024 9:05 AM SUPERVISOR EXTRUSION) CLOSTRIDIUM DIFFICILE PCR Negative 09/17/2024 2:11 PM SUPERVISOR EXTRUSION [facility] TRAL LABORATORY PRESUMPTIVE NAP1 STRAIN Negative 09/17/2024 2:11 PM SUPERVISOR EXTRUSION [facility] TRA LABORATORY Stool STOOL SPECIMEN / Unknown Non-Blood / Unknown 09/17/2024 9:05 AM SUPERVISOR EXTRUSION 09/17/2024 9:42 AM SUPERVISOR EXTRUSION Narrative [facility]AL [facility]AT[facility] - 09/17/2024 2:11 PM SUPERVISOR EXTRUSION The NAP1 (027 or BI) strain is a hypervirulent strain. Detection may be useful for epidemiological purposes. Brooke Nur MD MICROBIOLOGY Final Resul t Performing Organization Address City/[facility]/ZIP Co de Phone Number [facility] [address] [place] [phone], * (ABNORMAL) POCT Urinalysis Dipstick Only (09/11/2024 2:04 PM SUPERVISOR EXTRUSION) PH 6.0 5.0 - 8.0 [facility] SPECIFIC GRAVITY 1.015 1.001 - 1.035 [facility] GLUCOSE NEGATIVE NEGATIVE [facility] BILIRUBIN NEGATIVE NEGATIVE [facility] KETONES NEGATIVE NEGATIVE [facility] OCCULT BLOOD NEGATIVE NEGATIVE [facility] PROTEIN TRACE(A) NEGATIVE [facility] NITRITE NEGATIVE NEGATIVE [facility] LEUKOCYTE ESTERASE TRACE(A) NEGATIVE [facility] Urine URINE SPECIMEN / Unknown 09/11/2024 2:04 PM SUPERVISOR EXTRUSION 09/11/2024 2:05 PM SUPERVISOR EXTRUSION Brooke Nur MD URINE Final Resul t [facility] [address] [place] [address], [facility] [address] [place] [address] * (ABNORMAL) URINALYSIS MICROSCOPIC (09/11/2024 1:30 PM SUPERVISOR EXTRUSION) RBC 3-5(A) 0-2, None Seen /HPF 09/12/2024 8:59 AM SUPERVISOR EXTRUSION [facility] TRAL LABORATORY WBC 3-5 0-2, 3-5, None Seen /HPF 09/12/2024 8:59 AM SUPERVISOR EXTRUSION [facility] TRAL LABORATORY BACTERIA None Seen None Seen, Rare, Few Bacteria/ HPF 09/12/2024 8:59 AM SUPERVISOR EXTRUSION [facility] LAB[facility]ATORY EPITHELIAL CELLS Few None Seen, Few Epi/HPF 09/12/2024 8:59 AM SUPERVISOR EXTRUSION [facility] LAB[facility]ORY HYALINE CASTS 3-5 0-2, 3-5 /LPF 09/12/2024 8:59 AM SUPERVISOR EXTRUSION [facility] TR[facility] LAB[facility]ATORY Urine URINE SPECIMEN / Unknown Non-Blood / Unknown 09/11/2024 1:30 PM SUPERVISOR EXTRUSION 09/11/2024 2:04 PM SUPERVISOR EXTRUSION Narrative [facility]-CENTRAL LABORATORY - 09/12/2024 8:59 AM SUPERVISOR EXTRUSION Possible artefact or medication related elements. If there is indication for more UA testing, please order and send a fresh specimen. Reviewed by Dr. Mariano Boudreaux MD,Pathologist 09/12/24 us Brooke Nur MD URINE Final Resul t Performing Organization Address City/[facility]/ZIP Co de Phone Number [facility] [address] [place] [address], * URINE CULTURE (09/11/2024 1:30 PM SUPER[employer]OR EXTRUSION) CULTURE <10,000 CFU/mL multiple organisms 09/13/2024 2:36 PM SUPERVISOR EXTRUSION [facility] TRAL LABORATORY Urine URINE SPECIMEN / Unknown Non-Blood / Unknown 09/11/2024 1:30 PM SUPERVISOR EXTRUSION 09/11/2024 2:04 PM SUPERVISOR EXTRUSION Brooke Nur MD MICROBIOLOGY Final Resul t Performing Organization Address [facility] Co de Phone Number [facility] [address] [place] [address], * WHITE BLOOD COUNT (09/08/2024 12:17 PM SUPERVISOR EXTRUSION) Only the most recent of2 resultswithin the time period is included. WHITE BLOOD COUNT 8.7 4.5 - 11.0 thou/cu mm 09/08/2024 12:20 PM SUPERVISOR EXTRUSION [facility] Blood BLOOD SPECIMEN / Unknown Non-Lab Venipuncture / Unknown 09/08/2024 12:17 PM SUPERVISOR EXTRUSION 09/08/2024 12:17 PM SUPERVISOR EXTRUSION Narrative [facility] - 09/08/2024 12:20 PM SUPERVISOR EXTRUSION Lab order given to patient This procedure was originally ordered at [facility]. us Pawan AVALOS HEMATOLOGY Final Resu lt Performing Organization Address City/[facility]/ZIP Co de Phone Number [facility] [address] [place] [address] * CT ABDOMEN PELVIS WO (09/05/2024 8:17 AM SUPERVISOR EXTRUSION) Anatomical Region Laterality Modality Abdomen, Pelvis, AORTA, LIVER, SPLEEN Computed Tomography 09/05/2024 8:50 AM SUPERVISOR EXTRUSION Impressions 09/05/2024 8:50 AM SUPERVISOR EXTRUSION Status post CT-guided aspiration with interval reduction in the size of left perivertebral fluid collection, located anterior to the psoas. Interval increase in the size of posterior midline soft tissue fluid collection with multiple internal air foci, concerning for developing superimposed infection. Alternatively air foci could be secondary to postprocedural changes. Correlate clinically. Streak artifact limits the assessment for epidural or intrathecal extension of this fluid collection/developing abscess, consider further evaluation with MRI. Left paraumbilical anterior abdominal fat stranding with possible surgical packing material, likely related to recent post procedural changes. Please note that all CT scans at this facility use dose modulation, iterative reconstruction, and/or weight-based dosing when appropriate to reduce radiation dose to as low as reasonably achievable. Dictated by Yehuda Plascencia MD @ 09/05/2024 8:50:37 AM (Electronically Signed) Narrative 09/05/2024 8:50 AM SUPERVISOR EXTRUSION For Patients: As a result of the Cures Act, medical imaging exams and procedure reports are released immediately into your electronic medical record. You may view this report before your referring provider. If you have questions, please contact your health care provider. INDICATION: Postop spine surgeon. TECHNIQUE: CT abdomen and pelvis without contrast. COMPARISON: None. FINDINGS: Lower chest: Unremarkable. Liver: Normal in size and attenuation. No suspicious masses on a non-contrast exam . Gallbladder and bile ducts: Suggestion of cholecystectomy. Pancreas: No mass or inflammation. Spleen: Normal in size. No masses. Adrenal glands: No suspicious mass. Kidneys: Normal in size. Punctate 2 millimeter nephrolithiasis at the lower pole of right kidney. No hydronephrosis. GI tract: No bowel obstruction. Suggestion of appendectomy. Few colonic diverticulosis without diverticulitis. Vasculature: Abdominal aorta is normal in caliber. Lymph nodes: No lymphadenopathy. Peritoneum/Abdominal Wall/bones: Suggestion of postsurgical changes with adjacent fatty stranding along the left paraumbilical abdominal wall. There is interval reduction into the left perivertebral fluid collection, anterior to the psoas, status post CT-guided aspiration. Small residual fluid collection measures about 2.4 by 1.4 by 3 cm. Postsurgical changes of posterior spinal fusion from L4 through S1 with traversing screw through bilateral ilium. Anterior fusion and interbody spacer placement at L4-5 and L5-S1 level is also present. There is interval increase in the posterior subcutaneous and muscular fluid collection at the surgical site and around the facet joint with multiple air foci within, it measures about 9.6 x 3.8 x 9.7 centimeter in the AP, transverse, craniocaudal dimension. Air foci within this collection could be related to postprocedural versus superimposed infarction. Extensive streak artifact limits the assessment of the thecal space. For epidural extension, consider further evaluation with MRI. Bones: Unremarkable for age. Procedure Note Yehuda Plascencia MD - 09/05/2024 For Patients: As a result of the Century Cures Act, medical imagingexams and procedure reports are released immediately into your electronicmedical record. You may view this report before your referring provider.If you have questions, please contact your health care provider. INDICATION: Postop spine surgeon. TECHNIQUE: CT abdomen and pelvis without contrast. COMPARISON: None. FINDINGS: Lower chest: Unremarkable. Liver: Normal in size and attenuation. No suspicious masses on anon-contrast exam . Gallbladder and bile ducts: Suggestion of cholecystectomy. Pancreas: No mass or inflammation. Spleen: Normal in size. No masses. Adrenal glands: No suspicious mass. Kidneys: Normal in size. Punctate 2 millimeter nephrolithiasis at thelower pole of right kidney. No hydronephrosis. GI tract: No bowel obstruction. Suggestion of appendectomy. Few colonicdiverticulosis without diverticulitis. Vasculature: Abdominal aorta is normal in caliber. Lymph nodes: No lymphadenopathy. Peritoneum/Abdominal Wall/bones: Suggestion of postsurgical changes withadjacent fatty stranding along the left paraumbilical abdominal wall.There is interval reduction into the left perivertebral fluid collection,anterior to the psoas, status post CT-guided aspiration. Small residualfluid collection measures about 2.4 by 1.4 by 3 cm. Postsurgical changes of posterior spinal fusion from L4 through S1 withtraversing screw through bilateral ilium. Anterior fusion and interbodyspacer placement at L4-5 and L5-S1 level is also present. There isinterval increase in the posterior subcutaneous and muscular fluidcollection at the surgical site and around the facet joint with multipleair foci within, it measures about 9.6 x 3.8 x 9.7 centimeter in the AP,transverse, craniocaudal dimension. Air foci within this collection couldbe related to postprocedural versus superimposed infarction. Extensivestreak artifact limits the assessment of the thecal space. For epiduralextension, consider further evaluation with MRI. Bones: Unremarkable for age. IMPRESSION: Status post CT-guided aspiration with interval reduction in the size ofleft perivertebral fluid collection, located anterior to the psoas. Interval increase in the size of posterior midline soft tissue fluidcollection with multiple internal air foci, concerning for developingsuperimposed infection. Alternatively air foci could be secondary topostprocedural changes. Correlate clinically. Streak artifact limits theassessment for epidural or intrathecal extension of this fluidcollection/developing abscess, consider further evaluation with MRI. Left paraumbilical anterior abdominal fat stranding with possible surgicalpacking material, likely related to recent post procedural changes. Please note that all CT scans at this facility use dose modulation,iterative reconstruction, and/or weight-based dosing when appropriate toreduce radiation dose to as low as reasonably achievable. Dictated by Yehuda Plascencia MD @ 09/05/2024 8:50:37 AM (Electronically Signed) Tana GRIMES CT Fi nal Result * XR SPINE LUMBAR 2 VIEWS STANDING (08/26/2024 2:15 PM [employer]) Anatomical Region Laterality Modality Spine, LUMBAR SPINE Computed Rad iography 08/26/2024 2:15 PM [employer] Impressions 08/26/2024 5:54 PM [employer] Nomenclature is based on 5 lumbar type vertebrae. Postsurgical changes of posterior instrumented fusion from L4 to S1. Interbody fusion of L4-L5 and L5-S1. The surgical hardware appear intact without evidence for fracture or loosening. Mild levocurvature of the lumbar spine. Normal sagittal alignment. Vertebral body heights are maintained. Mild endplate spurring throughout the lumbar spine. The visualized bony pelvis is within normal limits. Mild degenerative changes of the hip joints appear Narrative 08/26/2024 5:54 PM [employer] For Patients: As a result of the Century Cures Act, medical imaging exams and procedure reports are released immediately into your electronic medical record. You may view this report before your referring provider. If you have questions, please contact your health care provider. EXAM: XR SPINE LUMBAR 2 VIEWS STANDING LOCATION: [facility] DATE: 08/26/2024 INDICATION: S/p Lumbar Fusion COMPARISON: Lumbar spine CT 08/05/2024 Procedure Note Hill Angel MD - 08/26/2024 For Patients: As a result of the Cures Act, medical imagingexams and procedure reports are released immediately into your electronicmedical record. You may view this report before your referring provider.If you have questions, please contact your health care provider. EXAM: XR SPINE LUMBAR 2 VIEWS STANDING LOCATION: [facility] DATE: 08/26/2024 INDICATION: S/p Lumbar Fusion COMPARISON: Lumbar spine CT 08/05/2024 IMPRESSION: Nomenclature is based on 5 lumbar type vertebrae. Postsurgical changes ofposterior instrumented fusion from L4 to S1. Interbody fusion of L4-L5 andL5-S1. The surgical hardware appear intact without evidence for fractureor loosening. Mild levocurvature of the lumbar spine. Normal sagittalalignment. Vertebral body heights are maintained. Mild endplate spurringthroughout the lumbar spine. The visualized bony pelvis is within normallimits. Mild degenerative changes of the hip joints appear us Pawan [facility] Final Resu lt * SCAN-ELECTROCARDIOGRAM EKG (08/14/2024 12:00 AM [employer]) Narrative 08/14/2024 12:00 AM [employer] Ordered by an unspecified provider. us Other Clinical Staff OTHER Final Resul t * HCHG TUBE PR1, HCHG STYLET PR1, HCHG MOUTHPIECE PR1 (08/13/2024 7:53 AM [employer]) Narrative Shani Batista CRNA - 08/13/2024 7:53 AM [employer] Shani Batista CRNA 08/13/2024 7:54 AM Procedure: ETT Patient location during procedure: OR ETT Properties Mask Ventilation: easy Final Technique: direct laryngoscopy Type: straight Location: oral Tube Size: 7.0 mm Stylet: yes Laryngoscope Blade: Briggs Blade Size: 2 Cormack-Lehane Grade View: 1 Insertion Attempts: 1 Placement Verification: auscultation, end tidal CO2 and symmetrical chest wall movement Assessment: pharynx clear, atraumatic and dentition unchanged Secured at: 21 Measured From: teeth Tooth guard used and removed: yes Difficulty: 0 (not difficult) Selvin Guzmán MD ANESTHESIA PX NOTE ORDERABLES Final Result * SODIUM (08/09/2024 9:35 AM [employer]) Only the most recent of2 resultswithin the time period is included. SODIUM 138 136 - 145 mmol/L 08/09/2024 10:15 AM [employer] [facility] Blood BLOOD SPECIMEN / Unknown Venipuncture / Unknown 08/09/2024 9:35 AM [employer] 08/09/2024 9:43 AM [employer] Claire Del Real MD CHEMISTRY Final Result Performing Organization Address [facility]/ZIP Co de Phone Number [facility] SENDOUT INTER[address]IP [id number] [place] [id number] * VANCOMYCIN TROUGH (08/09/2024 9:35 AM [employer]) VANCOMYCIN,TRO UGH 15.4 7.0 - 20.0 ug/mL 08/09/2024 10:17 AM [employer] [facility] DATE OF LAST DOSE,TROUGH Not Given 08/09/2024 10:17 AM [employer] [facility] TIME OF LAST DOSE,TROUGH Not Given 08/09/2024 10:17 AM [facility] Blood BLOOD SPECIMEN / Unknown Venipuncture / Unknown 08/09/2024 9:35 AM [employer] 08/09/2024 9:43 AM [employer] Jared Cardona MD CHEMISTRY Prabha l Result Performing Organization Address [facility]/ZIP Co de Phone Number [facility] SENDOUT [place] ZIP [address] [place] [phone] * CT ASPIRATION PELVIS (08/07/2024 9:42 AM [employer]) Anatomical Region Laterality Modality Pelvis Computed Tomogra phy, Other 08/07/2024 9:42 AM [employer] Impressions 08/07/2024 10:17 AM [employer] 1. Successful CT-guided puncture and aspiration of anterior paraspinal postop fluid. Reference CPT Codes: 89274, 58748 Narrative 08/07/2024 10:17 AM [employer] For Patients: As a result of the Cures Act, medical imaging exams and procedure reports are released immediately into your electronic medical record. You may view this report before your referring provider. If you have questions, please contact your health care provider. EXAM: 1. PERCUTANEOUS PUNCTURE AND ASPIRATION RETROPERITONEAL FLUID 2. CT GUIDANCE 3. CONSCIOUS SEDATION LOCATION: [facility] DATE: 08/07/2024 INDICATION: free text)->Aspirate and culture seroma.. Postop fluid in the paraspinal soft tissues anteriorly. TECHNIQUE: Dose reduction techniques were used. PROCEDURE: Informed consent obtained. Site marked. Prior images reviewed. Required items made available. Patient identity confirmed verbally and with arm band. Patient reevaluated immediately before administering sedation. Laie protocol was followed. Time out performed. The site was prepped and draped in sterile fashion. 10 mL of 1% lidocaine was infused into the local soft tissues. Using standard technique and under direct CT guidance, a 18-gauge needle was inserted into the fluid collection anterior to the lumbar spine.. SPECIMEN: 10 mL of thin dark fluid (possibly old blood within the seroma) was aspirated and sent to lab for cultures and Gram stain. BLOOD LOSS: Minimal. The patient tolerated the procedure well. No immediate complications. SEDATION: Versed 1.0 mg. Fentanyl 75 mcg. The procedure was performed with administration intravenous conscious sedation with appropriate preoperative, intraoperative, and postoperative evaluation. 10 minutes of supervised face to face conscious sedation time was provided by a radiology nurse under my direct supervision. Procedure Note Roosevelt Cleary MD - 08/07/2024 For Patients: As a result of the Cures Act, medical imagingexams and procedure reports are released immediately into your electronicmedical record. You may view this report before your referring provider.If you have questions, please contact your health care provider. EXAM: 1. PERCUTANEOUS PUNCTURE AND ASPIRATION RETROPERITONEAL FLUID 2. CT GUIDANCE 3. CONSCIOUS SEDATION LOCATION: [facility] DATE: 08/07/2024 INDICATION: free text)->Aspirate and culture seroma.. Postop fluid in theparaspinal soft tissues anteriorly. TECHNIQUE: Dose reduction techniques were used. PROCEDURE: Informed consent obtained. Site marked. Prior images reviewed.Required items made available. Patient identity confirmed verbally andwith arm band. Patient reevaluated immediately before administeringsedation. Laie protocol was followed. Time out performed. The sitewas prepped and draped in sterile fashion. 10 mL of 1% lidocaine wasinfused into the local soft tissues. Using standard technique and underdirect CT guidance, a 18-gauge needle was inserted into the fluidcollection anterior to the lumbar spine.. SPECIMEN: 10 mL of thin dark fluid (possibly old blood within the seroma)was aspirated and sent to lab for cultures and Gram stain. BLOOD LOSS: Minimal. The patient tolerated the procedure well. No immediate complications. SEDATION: Versed 1.0 mg. Fentanyl 75 mcg. The procedure was performed withadministration intravenous conscious sedation with appropriatepreoperative, intraoperative, and postoperative evaluation. 10 minutes of supervised face to face conscious sedation time was providedby a radiology nurse under my direct supervision. IMPRESSION: 1. Successful CT-guided puncture and aspiration of anterior paraspinalpostop fluid. Reference CPT Codes: 09689, [address] Final Resul t * (ABNORMAL) PROTIME-INR (08/07/2024 6:44 AM [employer]) INR 1.2 <1.3 08/07/2024 7:33 AM [facility] PROTIME 14.0(H) 10.6 - 12.4 sec 08/07/2024 7:33 AM [facility] Blood BLOOD SPECIMEN / Unknown Venipuncture / Unknown 08/07/2024 6:44 AM [employer] 08/07/2024 7:23 AM [facility] - 08/07/2024 7:33 AM [facility] Therapeutic Range 2.0-3.0 for most anticoagulated patients 2.5-3.5 or 4.0 for high risk patients The INR is only used for patients on stable oral anticoagulant therapy. It makes no significant contribution to the diagnosis or treatment of patients whose Protime is prolonged for other reasons. INR results are increased when heparin levels exceed 1.0 U/mL, which corresponds to an aPTT >125 seconds if the patient is on UFH. us Tonya Peoples NP HEMATOLOGY Final Result [facility] SENDOUT [place] [address] [address] [address] [place] [address] * CT PELVIS W (08/06/2024 1:51 PM [employer]) Anatomical Region Laterality Modality Pelvis, Abdomen, PROSTATE, BLADDER Computed Tomography 08/06/2024 1:51 PM [employer] Impressions 08/06/2024 2:59 PM [employer] 1. Postoperative changes of anterior interbody fusion at L4-S1, as well as posterior decompression and instrumented fusion from L4 through the pelvis. 2. Peripherally enhancing gas-containing fluid collection within the prevertebral soft tissues at the level of L5-S1 extending into the left hemipelvis, which may represent a postoperative seroma although early abscess cannot be excluded by imaging. 3. Ill-defined gas-containing fluid collection within the posterior paraspinal soft tissues about the operative site, which may be postoperative although superinfection is not excluded by imaging. Narrative 08/06/2024 2:59 PM [employer] For Patients: As a result of the Century Cures Act, medical imaging exams and procedure reports are released immediately into your electronic medical record. You may view this report before your referring provider. If you have questions, please contact your health care provider. EXAM: CT PELVIS W LOCATION: [facility] DATE: 08/06/2024 INDICATION: Osteomyelitis suspected, pelvis, x-ray done. COMPARISON: CT lumbar spine 08/05/2024 and 07/25/2024. TECHNIQUE: CT scan of the pelvis was performed with intravenous contrast. Multiplanar reformats were obtained. Dose reduction techniques were used. CONTRAST: 100 mL Omnipaque 350. FINDINGS: PELVIC ORGANS: Normal caliber small and large bowel loops. Postoperative changes of prior appendectomy. Postprocedural changes within the anterior inferior abdominal wall with scattered subcutaneous soft tissue stranding and a few foci of subcutaneous gas. No pelvic lymphadenopathy. MUSCULOSKELETAL: Postoperative changes of anterior interbody fusion at L4-L5 and L5-S1, and posterior instrumented fusion extending from L4 through the pelvis with posterior decompression including right hemilaminectomy at L4-L5 and L5-S1, and left L5 laminectomy. The hardware is intact without evidence of loosening or failure. There is bone graft material along bilateral L4-S1 posterior elements. There is an ill-defined gas-containing fluid collection within the posterior paraspinal soft tissues at the operative site centered at the level of L5 measuring approximately 7.1 x 2.5 x 3.4 cm (series 6, image 12 and series 5, image 105). There is an additional developing fluid collection within the anterior prevertebral soft tissues at L5-S1 with thin peripheral enhancement and a few internal foci of gas which extends inferiorly along the left pelvic sidewall adjacent to the proximal aspect of the external iliac vessels. This measures approximately 2.6 x 4.4 cm in maximal axial dimension (series 6, image 22). No definite CT findings of osteomyelitis in the visualized lower lumbar spine or pelvic bones. Mild degenerative arthritis of both hips. Procedure Note Marilin Fox MD - 08/06/2024 For Patients: As a result of the Century Cures Act, medical imagingexams and procedure reports are released immediately into your electronicmedical record. You may view this report before your referring provider.If you have questions, please contact your health care provider. EXAM: CT PELVIS W LOCATION: [facility] DATE: 08/06/2024 INDICATION: Osteomyelitis suspected, pelvis, x-ray done. COMPARISON: CT lumbar spine 08/05/2024 and 07/25/2024. TECHNIQUE: CT scan of the pelvis was performed with intravenous contrast.Multiplanar reformats were obtained. Dose reduction techniques wereused. CONTRAST: 100 mL Omnipaque 350. FINDINGS: PELVIC ORGANS: Normal caliber small and large bowel loops. Postoperativechanges of prior appendectomy. Postprocedural changes within the anteriorinferior abdominal wall with scattered subcutaneous soft tissue strandingand a few foci of subcutaneous gas. No pelvic lymphadenopathy. MUSCULOSKELETAL: Postoperative changes of anterior interbody fusion atL4-L5 and L5-S1, and posterior instrumented fusion extending from [id number] the pelvis with posterior decompression including righthemilaminectomy at L4-L5 and L5-S1, and left L5 laminectomy. The hardwareis intact without evidence of loosening or failure. There is bone graftmaterial along bilateral L4-S1 posterior elements. There is an ugp-utpxdpmczo-wftlcfvthr fluid collection within the posterior paraspinal softtissues at the operative site centered at the level of L5 measuringapproximately 7.1 x 2.5 x 3.4 cm (series 6, image 12 and series 5, [id number]). There is an additional developing fluid collection within the anteriorprevertebral soft tissues at L5-S1 with thin peripheral enhancement and afew internal foci of gas which extends inferiorly along the left pelvicsidewall adjacent to the proximal aspect of the external iliac vessels.This measures approximately 2.6 x 4.4 cm in maximal axial dimension(series 6, image 22). No definite CT findings of osteomyelitis in thevisualized lower lumbar spine or pelvic bones. Mild degenerative arthritisof both hips. IMPRESSION: 1. Postoperative changes of anterior interbody fusion at L4-S1, as wellas posterior decompression and instrumented fusion from L4 through thepelvis. 2. Peripherally enhancing gas-containing fluid collection within theprevertebral soft tissues at the level of L5-S1 extending into the lefthemipelvis, which may represent a postoperative seroma although earlyabscess cannot be excluded by imaging. 3. Ill-defined gas-containing fluid collection within the posteriorparaspinal soft tissues about the operative site, which may bepostoperative although superinfection is not excluded by imaging. Castro [facility] CT Final Resul t * XR MAMMO TAMICA BILAT SCREEN (08/23/2023 1:18 PM [employer]) Anatomical Region Laterality Modality BREASTS, Breast Left, Breast Right Bilateral Mammography Impressions 08/23/2023 3:01 PM [employer] There is no radiographic evidence for malignancy. Recommend annual mammograms. MAMMOGRAM ASSESSMENT: ACR 1 Negative PATIENTS: You will also receive a letter with your examination results in an easy to read format. If you have questions about your results, please contact your referring provider. Narrative 08/23/2023 3:01 PM [employer] For Patients: As a result of the 21st Century Cures Act, medical imaging exams and procedure reports are released immediately into your electronic medical record. You may view this report before your referring provider. If you have questions, please contact your health care provider. XR MAMMO TAMICA BILAT SCREEN [[id number]] CLINICAL HISTORY: This is an asymptomatic 53 y.o. patient. INDICATION FOR EXAM: Mammogram Screening. TECHNIQUE: CC & MLO views were obtained. This study was evaluated with the assistance of Computer-Aided Detection. Breast Tomosynthesis was used in interpretation. COMPARISON FILM: [facility] FINDINGS: The breasts are almost entirely fatty. There are no dominant masses, suspicious micro calcifications or areas of architectural distortion. Brooke Nur MD MAMMO Final Resul t * LDL CHOLESTEROL,DIRECT (08/16/2023 10:51 AM [employer]) LDL CHOLESTEROL,DI RECT 105 mg/dL 08/16/2023 5:56 PM [employer] [facility] PROVIDER ORDERED STATUS RANDOM 08/16/2023 5:56 PM [employer] [facility] Blood BLOOD SPECIMEN / Unknown Venipuncture / Unknown 08/16/2023 10:51 AM [employer] 08/16/2023 10:52 AM [employer] Narrative [facility] - 08/16/2023 5:56 PM [employer] Optimal <100 mg/dl Near Optimal 100-129 mg/dl Borderline High 130-159 mg/dl High 160-189 mg/dl Very High >=190 mg/dl Brooke Nur MD CHEMISTRY Final Resul t [facility] [address] [place] [id number], [place] * COLONOSCOPY (12/16/2021 8:41 AM CDT) 12/16/2021 8:41 AM CDT Narrative Transcriptions Sunil Nicolas MD - 12/16/2021 9:19 AM CDT Patient Name: Jazmyne Craig Procedure Date: 12/16/2021 Gender: Female Date of : 1970 Admit Type: Outpatient Procedure: Colonoscopy Proceduralist: Sunil Nicolas MD , Ana Lilia Tyler RN(Nurse) Referring MD: Brooke uNr Indications/Pre-Op Diagnosis: Screening for colorectal malignant neoplasm, This is the patient's first colonoscopy Medications: Fentanyl 100 micrograms IV, Midazolam 2 mgIV, The level of sedation administered wasmoderate Procedure Description: The patient had risks, benefits and alternatives explained to andgave informed consent. The patient had a stable cardiopulmonary status and judged an adequate candidate for conscious sedation. The Colonoscope was passed through the anus and advanced to theterminal ileum. The colonoscopy was performed without difficulty. The patient tolerated the procedure well. The quality of the bowel preparationwas good. The terminal ileum, ileocecal valve, appendiceal orifice, and rectum were photographed. Complications: No immediate complications. Estimated Blood Loss & Specimen: Estimated blood loss: none. Specimen collected - None Findings: The perianal and digital rectal examinations were normal. The terminal ileum appeared normal. Scattered small-mouthed diverticula were found in the sigmoid colonand descending colon. The exam was otherwise without abnormality on direct and retroflexion views. Impressions/Post-Op Diagnosis: - The examined portion of the ileum was normal. - Diverticulosis in the sigmoid colon and in the descending colon. - The examination was otherwise normal on direct and retroflexionviews. - No specimens collected. Recommendation: - Patient has a contact number available for emergencies. The signsand symptoms of potential delayed complications were discussed with the patient. Return to normal activities tomorrow. Written discharge instructions were provided to the patient. - Resume previous diet. - Continue present medications. - Repeat colonoscopy in 10 years for screening purposes. Moderate Sedation: Moderate (conscious) sedation was administered by the endoscopy nurse and supervised by the endoscopist. The following parameters were monitored: oxygen saturation, heart rate, respiratory rate, blood pressure, adequacy of pulmonary ventilation and reponse to care. Please refer to the patient's medical record flowsheets and nursing notes for moderate sedation details. Total physician intraservice time was 20 minutes. Sunil Nicolas MD 12/16/2021 9:19:45 AM This report has been signed electronically. Note Initiated On: 12/16/2021 8:41 AM Procedure Code(s): --- Professional --- 67210, Colonoscopy, flexible; diagnostic, including collection of specimen(s) bybrushing or washing, when performed (separateprocedure) Diagnosis Code(s): --- Professional --- Z12.11, Encounter for screening formalignant neoplasm of colon K57.30, Diverticulosis of large intestine without perforation or abscess withoutbleeding CPT copyright 2020 [employer]. All rights reserved. The codes documented in this report are preliminary and upon heat treating operator reviewmay be revised to meet current compliance requirements. Scope In: 8:56:25 AM Scope Withdrawal Time 0 hours 8 minutes 32 seconds Scope Out: 9:14:32 AM us Sunil Nicolas MD PROCEDURE ORD Final Res ult * ANTI HIV 1/2 (12/31/2018 10:40 AM CDT) HIV-1/HIV-2 ANTIBODY Non-Reacti ve Non-Reacti ve 12/31/2018 5:15 PM CDT [facility] [employer] Comment:HIV-1 p24 and HIV-1/ HIV-2 Ab not detected. Blood BLOOD SPECIMEN / Unknown Venipuncture / Unknown 12/31/2018 10:40 AM CDT 12/31/2018 10:41 AM CDT Brooke Nur MD SEND OUTS Final Resul t [facility] [id number] [place] [address], * ACUTE HEPATITIS PANEL (03/07/2010 3:18 PM CDT) HBSAG Non-reacti ve [facility] IGM ANTI HBC Non-reacti ve [facility] ANTI HAV Non-reacti ve [facility] ANTI HCV Non-reacti ve [facility] Blood specimen (specimen) BLOOD SPECIMEN / Unknown 03/07/2010 3:18 PM CDT 03/07/2010 3:07 PM CDT us Klarissa Field DO SEND OUTS Final Resu lt [facility] [place]IP [id number] [place] [id number] from Last 3 Months or Most Recently Relevant to Health Maintenance Insurance [facility] [employer] [facility] CARE ATTN: [place] [address] MEDICAID [facility] CARE ATTN: [place] [address] MEDICAID [id number] Advance Directives * Full Code (Latest Code Status on File) Date Activated Date Inactivated Comments 09/30/2024 2:28 PM 10/01/2024 8:31 PM Question Answer Comments Code Status Discussion: Reviewed Preferences * Full Code Date Activated Date Inactivated Comments 09/29/2024 1:56 PM 09/30/2024 2:28 PM Question Answer Comments Code Status Discussion: Unable to Assess Preferences, Provider to review later * Full Code Date Activated Date Inactivated Comments 08/05/2024 7:23 PM 08/15/2024 6:39 PM Question Answer Comments Code Status Discussion: Reviewed Preferences * Full Code Date Activated Date Inactivated Comments 07/23/2024 5:50 AM 07/31/2024 11:41 AM Question Answer Comments Code Status Discussion: Unable to Assess Preferences, Provider to review later * Full Code Date Activated Date Inactivated Comments 02/24/2021 3:29 PM 02/25/2021 4:33 PM Question Answer Comments Code Status Discussion: Per Existing Order Care Teams [employer] Relationship Specialty Start Date End Date Brooke Nur MD [address] [place] [address] PCP - General Family Practice 08/06/18 Sally Freeman MD Obstetrics and Gynecology 04/21/[address] [address] 10/02/24
[2024-11-04] MEDS: MORPHINE 4 MG/ML INJ IVP ×2 (21:26→23:16)
[2024-11-04] MEDS: 0.9 % SODIUM CHLORIDE 1000 ml 1,000 ML IV (21:27)
[2024-11-04 21:29] LABS: Basophils Absolute Auto 0.04 K/uL (0.00-0.30); Basophils Percent Auto 0.4 % (0.0-3.0); Eosinophils Absolute Auto 0.28 K/uL (0.00-0.50); Eosinophils Percent Auto 2.9 % (0.0-7.0); Hematocrit 30.8 % (33.0-51.0); Hemoglobin* 9.4 gm/dL (12.0-16.0); Immature Granulocytes Abs Auto 0.05 K/uL (0.00-0.30); Immature Granulocytes Pct Auto 0.5 %; Lymphocytes Absolute Auto 3.51 K/uL (0.90-2.90); Lymphocytes Percent Auto 36.6 % (20-44); Mean Corpuscular HGB Conc 31 gm/dL (32-36); Mean Corpuscular Hemoglobin 23 pg (26-34); Mean Corpuscular Volume 76 fL (80-100); Monocytes Percent Auto 8.1 % (0.0-11.0); Neutrophils Absolute Auto 4.92 K/uL (1.7-7.0); Neutrophils Percent Auto 51.5 % (42.0-72.0); Platelet Count* 556 K/uL (140-440); RDW Coefficient of Variation % 16.6 % (11.5-15.5); Red Blood Count 4.07 m/uL (4.00-5.20); White Blood Count* 9.58 K/uL (4.50-11.00)
--- OUTSIDE RECORDS SUMMARY | 2024-11-04 21:30 | XMS_ITS | Clinical Summary ---
Author Organization [facility] Address [address] [place] [address] Care Team Providers Care Logistics Coordinator Name Role Phone Sally Freeman MD Unavailable + Brooke Nur MD Primary Care Provider [phone] [facility] Unavailable Allergies Active Allergy Reactions Criticality Noted [...] hrs. 80 Tablet 1 4 4:22 PM PURCHASE ORDER CHECKER 07/30/20 24 Active insulin NPH isophane, U-100, [...] health clinician.] 20 Tablet 5 5:27 PM PURCHASE ORDER CHECKER 09/18/19 25 025 Discontinu ed(*Med complete/R egimen [...] Care Team Description 11/04/2024 Home Care Visit [facility] [address] [place] [address] Aurea Christina RN SN - PRN HOME VISIT 11/04/2024 Telephone [facility] [address] [facility] [address] [place] [phone] Randy López PA Medication Management 11/03/2024 10:00 AM CDT Home Care Visit [facility] [address] [place] [address] Aurea Christina RN SN - WOUND LONG VISIT (>90 MINUTES) 11/03/2024 Telephone [facility] [address] [place] [address] Aurea Christina RN Abdominal Pain/problem 11/03/2024 Telephone [facility] [address] [place] [address] Safia Perez PA Concerns 11/03/2024 Nurse Triage [facility] [address] [place] [address] Brooke Nur MD Abdominal Pain 10/31/2024 8:00 AM PURCHASE ORDER CHECKER Home Care Visit [facility] [address] [place] [address] Aurea Christina, SHAWANDA SN - WOUND LONG VISIT (>90 MINUTES) 10/31/2024 Orders Only [facility] [address] [facility] [address] [place] [address] Ja Brown PA <No scans attached> 10/31/2024 Orders Only [facility] [address] [place] [address] Brooke Nur MD <No scans attached> 10/29/2024 Home Care Visit [facility] [address] [place] [phone] Aurea Christina, SHAWANDA SN - PRN LONG VISIT >90 MINS 10/29/2024 Refill [facility] [address] [place] [phone] Tana Edwards MBBS Refill Request 10/29/2024 Orders Only [facility] [address] [facility] [address] [place] [phone] Jared Pavon RN <No scans attached> 10/29/2024 Telephone [facility] [address] [place] [address] Brooke Nur MD 10/28/2024 Orders Only [facility] [address] [place] [address] Aurea Christina RN <No scans attached> 10/27/2024 2:00 PM PURCHASE ORDER CHECKER Home Care Visit [facility] [address] [place] [phone] Aurea Christina, SHAWANDA SN - WOUND LONG VISIT (>90 MINUTES) 10/27/2024 Telephone [facility] [address] [place] [address] Jo-Ann Oquendo NP Questions 10/24/2024 5:00 PM PURCHASE ORDER CHECKER Home Care Visit [facility] [address] [place] [address] Aurea Christina RN SN - WOUND LONG VISIT (>90 MINUTES) 10/22/2024 11:20 AM PURCHASE ORDER CHECKER Office Visit [facility] [address] [place] [address] Jo-Ann Oquendo NP Wound Check 10/22/2024 10:45 AM PURCHASE ORDER CHECKER Office Visit [facility] [address] [place] [address] Tana Edawrds MBBS Follow Up (wound check ) 10/22/2024 Travel 10/20/2024 8:00 AM PURCHASE ORDER CHECKER Home Care Visit [facility] [address] [place] [address] Aurea Christina RN SN - WOUND LONG VISIT (>90 MINUTES) 10/17/2024 Telephone [facility] [address] [place] [address] Jo-Ann Oquendo NP Questions (VAC) 10/16/2024 8:20 AM PURCHASE ORDER CHECKER Office Visit [facility] [address] [place] [address] Jo-Ann Oquendo NP Wound Check 10/16/2024 Travel 10/15/2024 8:00 AM PURCHASE ORDER CHECKER Home Care Visit [facility] [address] [place] [address] Aurea Christina RN SN - WOUND LONG VISIT (>90 MINUTES) 10/15/2024 Orders Only [address] [place] [address] Brooke Nur MD <No scans attached> 10/14/2024 1:00 PM PURCHASE ORDER CHECKER Home Care Visit [facility] [address] [place] [phone] Shalini Morris RN SN - HOME VISIT 10/13/2024 10:50 AM PURCHASE ORDER CHECKER Office Visit [facility] [place] [address] [place] [address] Vimal Min MD Follow Up (Hypercharge) 10/13/2024 Telephone [facility] [address] [place] [phone] Rima Isbell RN Home Care (PICC removal orders) 10/13/2024 Home Care Visit [facility] [address] [place] [phone] Rima Isbell RN CARE COORDINATION 10/13/2024 Telephone [facility] [address] [place] [address] Mari Elam MD Questions (PICC LINE MIGRATING, IV ANTIBIOTICS AND LABS, PLAN OF CARE) 10/13/2024 Nurse Triage [facility] [address] [place] [address] Brooke Nur MD Infusion Therapy (PICC line concerns/lab orders) 10/13/2024 Travel 10/10/2024 2:00 PM PURCHASE ORDER CHECKER Home Care Visit [facility] [address] [place] [phone] Aurea Christina RN SN - WOUND LONG VISIT (>90 MINUTES) 10/09/2024 Orders Only [facility] [address] [place] [address] Brooke Nur MD <No scans attached> 10/08/2024 8:00 AM PURCHASE ORDER CHECKER Home Care Visit [facility] [address] [place] [address] Aurea Christina, RN SN - WOUND LONG VISIT (>90 MINUTES) 10/06/2024 11:35 AM PURCHASE ORDER CHECKER Office Visit [facility] [address] [place] [address] Safia Perez PA Hospital F/U (DOD 10/01/2024 [facility] INFECTION OF DEEP INCISIONAL SURGICAL SITE AFTER PROCEDURE); Concerns (Not sleeping ) 10/06/2024 8:00 AM PURCHASE ORDER CHECKER Home Care Visit [facility] [address] [place] [address] Aurea Christina, SHAWANDA SN - WOUND LONG VISIT (>90 MINUTES) 10/06/2024 Orders Only [facility] [address] [place] [address] Brooke Nur MD <No scans attached> 10/06/2024 Refill [facility] [address] [place] [address] Safia Perez PA Refill Request (Oxycodone) 10/06/2024 Telephone [facility] [address] [place] [address] Safia Perez PA Medication Management 10/06/2024 Travel 10/03/2024 9:00 AM PURCHASE ORDER CHECKER Home Care Visit [facility] [address] [place] [phone] Aurea Christina RN SN IV - START OF CARE 10/03/2024 Orders Only [facility] [address] [place] [address] Brooke Nur MD <No scans attached> 10/03/2024 Plan of Care Documentation [address] [address] 10/02/2024 Transcribe Orders [facility] [address] [place] [address] Infusion, [facility] 10/02/2024 Telephone [facility] [address] [place] [address] Mari Elam MD 10/02/2024 Patient Outreach [facility] [address] [place] [address] Zhane Cho, RN Student Primary RN Care Management; Hospital F/U (Lace=41) 10/02/2024 Home Care Visit [facility] [address] [place] [address] Aurea Christina, SHAWANDA SN - OASIS TRANSFER 10/01/2024 Home Care Visit [facility] [address] [place] [address] Aurea Christina, SHAWANDA EPISODE DISCHARGE 10/01/2024 Orders Only [facility] [address] [place] [address] Manish amaro PA <No scans attached> 10/01/2024 Home Care Visit [facility] [address] [place] [address] Aurea Christina, CHARGE GANG WEIGHER NOTE 09/29/2024 4:41 PM PURCHASE ORDER CHECKER Anesthesia Event [address] [address] Adonay Franco MD Koenig, Lisa Fredkove, MD 09/29/2024 4:20 PM PURCHASE ORDER CHECKER - 09/29/2024 5:57 PM PURCHASE ORDER CHECKER Surgery [address] [address] Tana Edwards MBBS INCISION AND DEBRIDEMENT OF ABDOMINAL WOUND WITH WOUND VACUUM PLACEMENT 09/29/2024 11:12 AM PURCHASE ORDER CHECKER - 10/01/2024 6:21 PM PURCHASE ORDER CHECKER Hospital Encounter [address] [address] Tana Edwards MBBS Infection of deep incisional surgical site after procedure, subsequent encounter (Primary Dx); Postoperative infection, unspecified type, sequela; Acute post-operative pain; S/P lumbar fusion; Lumbar radiculopathy; S/P spinal fusion; Status post incision and drainage Discharge Disposition: Home Self Care 09/29/2024 Travel 09/27/2024 Orders Only [facility] [address] [facility] [address] Brooke Nur MD <No scans attached> 09/26/2024 2:35 PM PURCHASE ORDER CHECKER Office Visit [facility] [address] [place] [address] Mercy Villalpando PA Pre-Op Exam (Type/Name of Surgery: ABDOMINAL SURGERY / Date of Surgery: 09/29/24 /Place of Surgery: [facility] /Surgeon's : DR. SHARMAINE EDWARDS / /) 09/26/2024 9:00 AM PURCHASE ORDER CHECKER Home Care Visit [facility] [address] [place] [address] Aurea Christina RN SN - HOME VISIT 09/26/2024 Travel 09/26/2024 Orders Only [facility] [address] [place] [address] Jo-Ann Oquendo NP <No scans attached> 09/25/2024 10:10 AM PURCHASE ORDER CHECKER Orders Only [facility] [address] [place] [address] Lab 09/25/2024 7:40 AM PURCHASE ORDER CHECKER Office Visit [facility] [address] [place] [address] Jo-Ann Oquendo NP Wound Check 09/25/2024 Orders Only [facility] [address] [facility] [place] [address] Brooke Nur MD <No scans attached> 09/25/2024 Telephone [facility] [address] [place] [address] Tana Edwards MBBS Education 09/25/2024 Telephone [facility] [address] [place] [address] Tana Edwards MBBS Procedure education and update 09/25/2024 Telephone [facility] [address] [facility] [address] [place] [address] Tana Edwards MBBS Procedure 09/25/2024 Travel 09/24/2024 8:30 AM PURCHASE ORDER CHECKER Home Care Visit [facility] [address] [place] [address] Aurea Christina RN SN - LONG VISIT (>90 MINUTES) 09/24/2024 Telephone [facility] [address] [place] [address] Brooke Nur MD Follow Up 09/22/2024 8:00 AM PURCHASE ORDER CHECKER Home Care Visit [facility] [address] [place] [phone] Aurea Christina RN SN - LONG VISIT (>90 MINUTES) 09/22/2024 Orders Only [facility] [address] [facility] [place] [address] Justin Garsia MD Lab 09/22/2024 Orders Only [facility] [address] [place] [address] Brooke Nur MD <No scans attached> 09/19/2024 9:40 AM PURCHASE ORDER CHECKER Office Visit [facility] [address] [employer] [address] [place] [address] Jo-Ann Oquendo NP Wound Check 09/19/2024 Home Care Visit [facility] [address] [place] [phone] Rima Isbell RN CARE COORDINATION 09/18/2024 11:47 AM PURCHASE ORDER CHECKER - 09/18/2024 5:25 PM PURCHASE ORDER CHECKER Emergency [facility] [address] [place] [address] Elizabeth Pizarro PA Gooley, Brian Thomas, MD Gastroenteritis (Primary Dx); Chronic wound infection of abdomen, initial encounter Discharge Disposition: Home Self Care 09/18/2024 Travel 09/17/2024 8:30 AM PURCHASE ORDER CHECKER Home Care Visit [facility] [address] [place] [address] Josselyn Garland RN SN - HOME VISIT 09/17/2024 Orders Only [facility] [address] [place] [address] Brooke Nur MD Lab 09/17/2024 Orders Only [facility] [address] [place] [address] Brooke Nur MD Lab (Home care) 09/17/2024 Orders Only [facility] [address] [place] [address] Justin Garsia MD Lab (Home care) 09/16/2024 Telephone [facility] [address] [place] [address] Josselyn Garland RN Diarrhea 09/16/2024 Telephone [facility] [address] [place] [address] Justin Garsia MD Lab (Home care) 09/16/2024 Nurse Triage [facility] [address] [place] [address] Brooke Nur MD Vomiting; Diarrhea 09/16/2024 Nurse Triage [facility] [address] [facility] [address] [place] [address] Mari Elam MD Diarrhea; Vomiting; Weak 09/15/2024 11:00 AM PURCHASE ORDER CHECKER Office Visit [facility] [place] [address] [place] [address] Vimal Cabello MD Follow Up (incision check ) 09/15/2024 Travel 09/12/2024 3:45 PM PURCHASE ORDER CHECKER Home Care Visit [facility] [address] [facility] [place] [address] Raul Montoya, PT PT - DISCIPLINE DISCHARGE 09/12/2024 3:00 PM PURCHASE ORDER CHECKER Home Care Visit [facility] [address] [facility] [place] [address] Aurea Christina, SHAWANDA SN - HOME VISIT 09/12/2024 4:00 AM PURCHASE ORDER CHECKER Home Care Visit [facility] [address] [facility] [place] [address] Raul Collado RN SN - WOUND/OSTOMY CHART CONSULT 09/12/2024 Travel 09/12/2024 Home Care Visit [facility] [address] [place] [address] Sandrine Guzman, NOZZLE WORKER CARE COORDINATION 09/11/2024 12:45 PM PURCHASE ORDER CHECKER Office Visit [facility] [address] [place] [address] Brooke Nur MD Hospital F/U ([facility] 08/05/2024) 09/11/2024 9:20 AM PURCHASE ORDER CHECKER Office Visit [facility] [address] [place] [address] Mari Elam MD Hospital F/U 09/11/2024 8:20 AM PURCHASE ORDER CHECKER Office Visit [facility] [address] [place] [address] Jo-Ann Oquendo NP Wound Check 09/11/2024 Travel 09/10/2024 4:00 PM PURCHASE ORDER CHECKER Home Care Visit [facility] [address] [facility] [place] [address] Aurea Christina, SHAWANDA SN - HOME VISIT 09/10/2024 Telephone [facility] [address] [place] [address] Pawan Us PA Refill Request 09/10/2024 Telephone [facility] [address] [place] [address] Jo-Ann Oquendo NP Failed Appointment (No show) 09/08/2024 8:30 AM PURCHASE ORDER CHECKER Home Care Visit [facility] [address] [place] [address] Aurea Christina, RN SN - LONG VISIT (>90 MINUTES) 09/08/2024 Orders Only [facility] [address] [facility] [place] [address] Leslye Garsia RN Lab 09/05/2024 1:30 PM PURCHASE ORDER CHECKER Office Visit [facility] [address] [place] [address] Tana Edwards MBBS Consult (H/O lumbosacral spine surgery) 09/05/2024 8:00 AM PURCHASE ORDER CHECKER Ancillary Procedure [facility] [address] [place] [address] 09/05/2024 Travel 09/04/2024 9:00 AM PURCHASE ORDER CHECKER Office Visit [facility] [address] [place] [address] Pawan Us PA Post-op (INCISION CHECK AND SUTURE REMOVAL - HAS A FLUID COLLECTION/5 weeks post/op 07/23/24 A/P L4-S1 W/ PF) 09/04/2024 Telephone [facility] [address] [place] [address] Justin Garsia MD Abdominal Pain/problem 09/03/2024 5:30 PM PURCHASE ORDER CHECKER Home Care Visit [facility] [address] [place] [address] Aurea Christina, SHAWANDA SN - HOME VISIT 09/03/2024 4:00 PM PURCHASE ORDER CHECKER Home Care Visit [facility] [address] [place] [address] Raul Montoya, PT PT - HOME VISIT 09/03/2024 Travel 09/03/2024 Telephone [facility] [address] [place] [address] Tana Edwards MBBS Appt and imaging schedule 09/03/2024 Telephone [facility] [address] [place] [address] Tana Edwards MBBS Error-please disregard 09/03/2024 Telephone [facility] [address] [place] [address] Pawan Us PA Refill Request 09/02/2024 4:00 AM PURCHASE ORDER CHECKER Home Care Visit [facility] [address] [place] [address] Raul Collado, RN SN - WOUND/OSTOMY CHART CONSULT 09/02/2024 Home Care Visit [facility] [address] [place] [phone] Aurea Christina RN SN - HOME VISIT 09/02/2024 Telephone [facility] [address] [place] [address] Tana Edwards MBBS Wound Update 09/01/2024 3:30 PM PURCHASE ORDER CHECKER Home Care Visit [facility] [address] [place] [phone] Claire Ramsey LISW CONDENSER WINDER - INITIAL ASSESSMENT 09/01/2024 8:30 AM PURCHASE ORDER CHECKER Home Care Visit [facility] [address] [place] [phone] Aurea Christina, SHAWANDA SN - LONG VISIT (>90 MINUTES) 09/01/2024 Orders Only [facility] [address] [facility] [place] [address] Justin Garsia MD Lab 08/29/2024 10:30 AM PURCHASE ORDER CHECKER Home Care Visit [facility] [address] [place] [address] Raul Montoya, PT PT - HOME VISIT 08/29/2024 Telephone [facility] [address] [address] Pawan Us PA Refill Request 08/28/2024 12:00 PM PURCHASE ORDER CHECKER Home Care Visit [facility] [address] [place] [address] Raul Collado, RN SN - WOUND/OSTOMY CHART CONSULT 08/28/2024 9:30 AM PURCHASE ORDER CHECKER Home Care Visit [facility] [address] [place] [address] Aurea Christina RN SN - HOME VISIT 08/28/2024 Telephone [facility] [address] [place] [address] Raul Collado, research center partner 08/28/2024 Home Care Visit [facility] [address] [place] [phone] Raul Montoya, PT CARE COORDINATION 08/28/2024 Orders Only [facility] [address] [place] [address] Tana Garsia DO Lab 08/28/2024 Orders Only [facility] [address] [place] [address] Brooke Nur MD Lab 08/26/2024 2:45 PM PURCHASE ORDER CHECKER Office Visit [facility] [address] [facility] [address] [place] [phone] Pawan Us PA Post-op (08/13/24 Post Lumbar wound exploration (sms)/07/23/24 APSF L4-S1 w/ pelvic fix (sms)) 08/26/2024 2:15 PM PURCHASE ORDER CHECKER Ancillary Procedure [facility] [address] [place] [address] 08/26/2024 4:00 AM PURCHASE ORDER CHECKER Home Care Visit [facility] [address] [place] [address] Raul Collado, RN SN - WOUND/OSTOMY CHART CONSULT 08/26/2024 Telephone [facility] [address] [place] [address] Raul Collado, research center partner 08/26/2024 Home Care Visit [facility] [address] [place] [phone] Rima Isbell RN CARE COORDINATION 08/26/2024 Travel 08/22/2024 10:00 AM PURCHASE ORDER CHECKER Home Care Visit [facility] [address] [place] [phone] Lela Ayers, PT PT - INITIAL ASSESSMENT 08/22/2024 Telephone [facility] [address] [place] [address] Randy López PA 08/21/2024 1:30 PM PURCHASE ORDER CHECKER Home Care Visit [facility] [address] [place] [phone] Sandrine Guzman, NOZZLE WORKER NOZZLE WORKER - HOME VISIT 08/21/2024 Home Care Visit [facility] [address] [place] [phone] Lela Ayers, PT CARE COORDINATION 08/19/2024 8:00 AM PURCHASE ORDER CHECKER Home Care Visit [facility] [address] [place] [phone] Aurea Christina, SHAWANDA SN - HOME VISIT 08/19/2024 12:25 AM PURCHASE ORDER CHECKER Home Care Visit [facility] [address] [place] [phone] Raul Collado, RN SN - WOUND/OSTOMY CHART CONSULT 08/19/2024 Orders Only [facility] [address] [place] [address] Justin Garsia MD Lab 08/19/2024 Refill [facility] [address] [place] [address] Brooke Nur MD Refill Request (Gabapentin) 08/19/2024 Telephone [facility] [address] [place] [address] Pawan Us PA Refill Request 08/18/2024 3:00 PM PURCHASE ORDER CHECKER Home Care Visit [facility] [address] [place] [phone] Aurea Christina, SHAWANDA SN - HOME VISIT 08/18/2024 Orders Only [facility] [address] [place] [address] Justin Garsia MD Lab (Weekly labs) 08/18/2024 Orders Only [facility] [address] [place] [address] Justin Garsia MD <No scans attached> 08/18/2024 Patient Outreach [facility] [address] [place] [address] Annalisa Perkins RN Primary RN Care Management (Lace score 63/); Hospital F/U 08/16/2024 12:00 PM PURCHASE ORDER CHECKER Home Care Visit [facility] [address] [place] [phone] Alka Joshua, RN SN - OASIS RESUMPTION OF CARE 08/15/2024 Home Care Visit [facility] [address] [place] [address] Alka Joshua, RN CARE COORDINATION 08/15/2024 Refill [facility] [address] [place] [address] Brooke Nur MD Refill Request (Gabapentin) 08/13/2024 7:25 AM PURCHASE ORDER CHECKER Anesthesia Event [facility] [address] [place] [address] Selvin Guzmán MD Nye, Leeroy Pearson MD 08/13/2024 7:10 AM PURCHASE ORDER CHECKER - 08/13/2024 9:09 AM PURCHASE ORDER CHECKER Surgery [facility] [place] [address] [place] [address] Vimal Min MD POSTERIOR LUMBAR WOUND EXPLORATION 08/07/2024 Home Care Visit [facility] [address] [place] [address] Rima Isbell RN SN - OASIS TRANSFER 08/05/2024 1:44 PM PURCHASE ORDER CHECKER - 08/15/2024 4:28 PM PURCHASE ORDER CHECKER Hospital Encounter [place] [address] [place] [address] Daysi Chan PA Beeman, Michel Bone MD [facility], Hospitalist [facility] Jared Cardona MD Gardner, MD Danielle Henderson, [...] Maternal Grandfather Maternal Grandmother Mother (Age 45) [place], [place], ci rrhosis Paternal Grandfather Paternal Grandmother [...] on file Legal Sex Female 6:23 AM PURCHASE ORDER CHECKER Gender Identity Not on file Sexual Orientation [...] 70.8 kg (156 lb) 10/13/2024 11:27 AM PURCHASE ORDER CHECKER Height 144.8 cm (4' 9) 10/13/2024 11:27 AM PURCHASE ORDER CHECKER Body Mass Index 33.76 10/13/2024 11:27 AM PURCHASE ORDER CHECKER Plan of Treatment Upcoming Encounters Date Type Department Care Team (Late st Contact Info) Description 11/05/2024 12:45 PM CDT Office Visit [facility] [address] [place] [address] Brooke Nur MD [address] [place] [address] 11/05/2024 2:20 PM CDT Office Visit [facility] [address] [place] [address] Jo-Ann Oquendo PRISON OFFICER [address] [place] [address] 11/07/2024 8:00 AM CDT Home Care Visit [facility] [address] [place] [phone] Aurea Christina, RN 11/10/2024 8:00 AM CDT Home Care Visit [place] [address] [place] [phone] Aurea Christina, RN 11/12/2024 7:40 AM CDT Office Visit [facility] [address] [place] [address] Jo-Ann Oquendo NP [address] [place] [address] 11/14/2024 8:00 AM CDT Home Care Visit [address] [address] Aurea Christina, RN 11/17/2024 8:00 AM CDT Home Care Visit [facility] [place] [id number] [place] [phone] Aurea Christina, RN 11/21/2024 8:00 AM CDT Home Care Visit [address] [phone] Aurea Christina, SHAWANDA 11/24/2024 8:00 AM CDT Home Care Visit [facility] [address] [facility] [place] [address] Aurea Christina, RN 11/28/2024 8:00 AM CDT Home Care Visit [facility] [address] [place] [address] Aurea Christina, RN 12/01/2024 8:00 AM CDT Appointment [facility] [address] [facility] [address] Aurea Christina, RN Health Maintenance Due Date [...] 05/17/2020, 09/25/2017 Medical Devices Implanted Type Area Rock Contractor Device Identifier Shelf Expiration Date Model / Serial / Lot System Sling Obtryx Halo [id number] - [id number] Implanted:Qt y: 1 on 12/11/2011 at [facility] N/A: Vagina [facility] 02/23/2014 850-500# / / [id number] Mrai-[id number] - [id number] Implanted:Qt y: 1 on 07/23/2024 by Vimal Min MD at [facility] N/A: Lumbar Vertebrae SeaSpine [id number] / / Description:Face Plate 16 mm 3-hole I added the 3 to the catalog number and emailed RN to notify that I made the change. 07/25 JT Bone 1-4mm 60cc Medtronic Fine Canclls Freeze Dried - [id number] Implanted:Qt y: 1 on 07/23/2024 by Vimal Min MD at [facility] N/A: Lumbar Vertebrae Medtronic Spine/Ortho [id number] 03/30/2028 [id number] / [id number] / Screw Bone Polyaxial Mariner - [id number] Implanted:Qt y: 6 on 07/23/2024 by Vimal Min MD at [facility] N/A: Lumbar Vertebrae SeaSpine [id number] / / Screw 8.5x60mm Solid Mariner - [id number] Implanted:Qt y: 2 on 07/23/2024 by Vimal Min MD at [facility] N/A: Lumbar Vertebrae SeaSpine [id number] / / Screw 7.5x40mm Solid Mariner - [id number] Implanted:Qt y: 2 on 07/23/2024 by Vimal Min MD at [facility] N/A: Lumbar Vertebrae SeaSpine [id number] / / Screw 6.5x50mm Solid Mariner - [id number] Implanted:Qt y: 2 on 07/23/2024 by Vimal Min MD at [facility] N/A: Lumbar Vertebrae [facility] [id number] / / Set Screw Pointlock Mariner - [id number] Implanted:Qt y: 6 on 07/23/2024 by Vimal Min MD at [facility] N/A: Lumbar Vertebrae Ana Luisa [id number] / / [id number] - [id number] Implanted:Qt y: 2 on 07/23/2024 by Vimal Min MD at [facility] N/A: Lumbar Vertebrae [place] 41 / / Description:Ruben 6.0x70 mm Bone Matrix 10cc [place] Plus Paste Dbm - [id number] Implanted:Qt y: 1 on 07/23/2024 by Vimal Min MD at [facility] N/A: Lumbar Vertebrae Medtronic Spine/Ortho [id number] 06/05/2026 [id number] / [id number] / Bone Matrix 5cc Stimulan Kit Rapid Cure - [id number] Implanted:Qt y: 1 on 07/23/2024 by Vimal Min MD at [facility] N/A: Lumbar Vertebrae [employer] 03/26/2027 [id number] / / [id number] Bone Matrix Md Infuse Bmp - [id number] Implanted:Qt y: 1 on 07/23/2024 by Vimal Min MD at [facility] N/A: Lumbar Vertebrae Medtronic Spine/Ortho [id number] 10/25/2025 [id number] / / [id number] 14 Peek Ti, Ta Seaspine Implant Implanted:Qt y: 1 on 07/23/2024 by Vimal Min MD at [facility] N/A: Lumbar Vertebrae SeaSpine 02/15/2028 [id number] / / [id number] Description:No Profile inter body, 31 x 24 x 14, 15 Degree 16 Peek Ti, Ta Seaspine Implant Implanted:Qt y: 1 on 07/23/2024 by Vimal Min MD at [facility] N/A: Lumbar Vertebrae SeaSpine 02/29/2028 [id number] / / [id number] Description:No profile inter body , 31 x 24 x 16, 15 degree Mrai-[id number] - [id number] Implanted:Qt y: 1 on 07/23/2024 by Vimal Min MD at [facility] N/A: Lumbar Vertebrae [employer]ine [id number] / / Description:Locking Plate [facility] - [id number] Implanted:Qt y: 1 on 07/23/2024 by Vimal Min MD at [facility] N/A: Lumbar Vertebrae [employer]Spine [id number] / / Description:Face Plate 14 mm 3-hole I updated the catalog number for the RN and email the correction. I added the 07/25 JT [facility][id number] - [id number] Implanted:Qt y: 6 on 07/23/2024 by Vimal Min MD at [facility] N/A: Lumbar Vertebrae [facility]-[id number] / / Description:Screw 5.5 x 25 m m Procedures Procedure Name Priority Date/Time Associated Diagnosis Comments GLUCOSE METER Timed 10/01/2024 12:24 PM PURCHASE ORDER CHECKER GLUCOSE METER Timed 10/01/2024 7:32 AM PURCHASE ORDER CHECKER POTASSIUM TREV 10/01/2024 5:52 AM PURCHASE ORDER CHECKER MAGNESIUM Early AM 10/01/2024 5:52 AM PURCHASE ORDER CHECKER GLUCOSE METER Timed 09/30/2024 9:24 PM PURCHASE ORDER CHECKER GLUCOSE METER Timed 09/30/2024 5:39 PM PURCHASE ORDER CHECKER POTASSIUM Timed 09/30/2024 3:11 PM PURCHASE ORDER CHECKER GLUCOSE METER Timed 09/30/2024 12:34 PM PURCHASE ORDER CHECKER GLUCOSE METER Timed 09/30/2024 6:52 AM PURCHASE ORDER CHECKER MAGNESIUM TREV 09/30/2024 5:10 AM PURCHASE ORDER CHECKER BASIC METABOLIC PANEL Early AM 09/30/2024 5:10 AM PURCHASE ORDER CHECKER CBC W PLT NO DIFF Early AM 09/30/2024 5:1 0 AM PURCHASE ORDER CHECKER XR CHEST 1 VIEW PORTABLE STAT 09/30/2024 12:18 AM PURCHASE ORDER CHECKER GLUCOSE METER Timed 09/29/2024 10:50 PM PURCHASE ORDER CHECKER GLUCOSE METER Timed 09/29/2024 5:57 PM PURCHASE ORDER CHECKER TISSUE CULTURE, STAIN (AEROBIC) Today 09/29/2024 5:16 PM PURCHASE ORDER CHECKER ANAEROBIC CULTURE Today 09/29/2024 5:1 6 PM PURCHASE ORDER CHECKER ENDOTRACHEAL TUBE Routine 09/29/2024 5:0 4 PM PURCHASE ORDER CHECKER ENDOTRACHEAL TUBE Routine 09/29/2024 5:0 4 PM PURCHASE ORDER CHECKER ENDOTRACHEAL TUBE Routine 09/29/2024 5:0 4 PM PURCHASE ORDER CHECKER INCISION DRAINAGE Tier 1 09/29/2024 4:3 1 PM PURCHASE ORDER CHECKER Abdominal wound dehiscence, sequela Case Notes T/F CASES IN HYBRID ROOM - 1630 - 30MINPORTABLE WOUND VAC Special Needs HT 4' 9 WT 68.4 kg BMI 32.60DM 2Betadine allergyPICC right armDifficult iv startMI MR RM 1 by 1015 on dosSPANISH 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 S tool sample to be tested on Sunday 2/3 GLUCOSE, RANDOM TREV 09/29/2024 2:42 PM PURCHASE ORDER CHECKER BASIC METABOLIC PANEL Preop 09/29/2024 2:42 PM PURCHASE ORDER CHECKER CBC W PLT NO DIFF Preop 09/29/2024 2:4 2 PM PURCHASE ORDER CHECKER MR SPINE LUMBAR WWO TREV 09/29/2024 11:28 AM PURCHASE ORDER CHECKER Postoperative infection, unspecified type, sequela SCAN-CARDIAC STRIP 09/29/2024 12:00 AM PURCHASE ORDER CHECKER AEROBIC BACTERIAL CULTURE, STAIN Routine 09/25/2024 11:19 AM PURCHASE ORDER CHECKER Wound infection CBC WITH AUTO DIFFERENTIAL Routine 09/22/2024 11:00 AM PURCHASE ORDER CHECKER Gross hematuria Routine general medical examination at a [facility] care facility C-REACTIVE PROTEIN Routine 09/22/2024 11:00 AM PURCHASE ORDER CHECKER Gross hematuria Routine general medical examination at a [facility] facility CREATININE Routine 09/22/2024 11:00 AM PURCHASE ORDER CHECKER Gross hematuria Routine general medical examination at a [facility] facility HEPATIC FUNCTION PANEL Routine 09/22/2024 11:00 AM PURCHASE ORDER CHECKER Gross hematuria Routine general medical examination at a [facility] CBC WITH AUTO DIFFERENTIAL Routine 09/22/2024 11:00 AM PURCHASE ORDER CHECKER Gross hematuria Routine general medical examination at a [facility] facility COVID/FLU/RSV PANEL Today 09/18/2024 2 :08 PM PURCHASE ORDER CHECKER UA W/ SEDIMENT EXAM REFLEXED PER CRITERIA STAT 09/18/2024 2:08 PM PURCHASE ORDER CHECKER CT ABDOMEN PELVIS W STAT 09/18/2024 1 :52 PM PURCHASE ORDER CHECKER XR CHEST 1 VIEW PICC OR CVAD PLACEMENT PORTABLE STAT 09/18/2024 12:29 PM PURCHASE ORDER CHECKER SEDIMENTATION RATE TREV 09/18/2024 11:54 AM PURCHASE ORDER CHECKER CBC WITH AUTO DIFFERENTIAL TREV 09/18/2024 11:54 AM PURCHASE ORDER CHECKER CBC WITH AUTO DIFFERENTIAL TREV 09/18/2024 11:54 AM PURCHASE ORDER CHECKER EXTRA TUBE LAVENDER Today 09/18/2024 11:54 AM PURCHASE ORDER CHECKER C-REACTIVE PROTEIN TREV 09/18/2024 11:47 AM PURCHASE ORDER CHECKER HEPATIC FUNCTION PANEL TREV 09/18/2024 11:47 AM PURCHASE ORDER CHECKER BASIC METABOLIC PANEL STAT 09/18/2024 11:47 AM PURCHASE ORDER CHECKER CBC WITH AUTO DIFFERENTIAL Routine 09/17/2024 9:05 AM PURCHASE ORDER CHECKER Spinal stenosis of lumbar region with neurogenic claudication CLOSTRIDIOIDES DIFFICILE TOXIN PCR Routine 09/17/2024 9:05 AM PURCHASE ORDER CHECKER Acute diarrhea HEPATIC FUNCTION PANEL Routine 09/17/2024 9:05 AM PURCHASE ORDER CHECKER Spinal stenosis of lumbar region with neurogenic claudication C-REACTIVE PROTEIN Routine 09/17/2024 9: 05 AM PURCHASE ORDER CHECKER Spinal stenosis of lumbar region with neurogenic claudication CREATININE Routine 09/17/2024 9:05 AM PURCHASE ORDER CHECKER Spinal stenosis of lumbar region with neurogenic claudication CBC WITH AUTO DIFFERENTIAL Routine 09/17/2024 9:05 AM PURCHASE ORDER CHECKER Spinal stenosis of lumbar region with neurogenic claudication URINALYSIS MACROSCOPIC - [facility] ONLY POC DIP ([facility]) Routine 09/11/2024 2:04 PM PURCHASE ORDER CHECKER Dysuria Flank pain URINALYSIS MICROSCOPIC Routine 09/11/2024 1:30 PM PURCHASE ORDER CHECKER Dysuria Flank pain URINE CULTURE Routine 09/11/2024 1:30 PM PURCHASE ORDER CHECKER Dysuria Flank pain WHITE BLOOD COUNT Routine 09/08/2024 12:17 PM PURCHASE ORDER CHECKER Wound infection C-REACTIVE PROTEIN Routine 09/08/2024 12:17 PM PURCHASE ORDER CHECKER Wound infection CT ABDOMEN PELVIS WO STAT 09/05/2024 8:17 AM PURCHASE ORDER CHECKER H/O lumbosacral spine surgery CBC WITH AUTO DIFFERENTIAL Routine 09/01/2024 11:00 AM PURCHASE ORDER CHECKER Gross hematuria Routine general medical examination at a health care facility C-REACTIVE PROTEIN Routine 09/01/2024 11:00 AM PURCHASE ORDER CHECKER Gross hematuria Routine general medical examination at a [facility] CREATININE Routine 09/01/2024 11:00 AM PURCHASE ORDER CHECKER Gross hematuria Routine general medical examination at a [facility] HEPATIC FUNCTION PANEL Routine 09/01/2024 11:00 AM PURCHASE ORDER CHECKER Gross hematuria Routine general medical examination at a [facility] CBC WITH AUTO DIFFERENTIAL Routine 09/01/2024 11:00 AM PURCHASE ORDER CHECKER Gross hematuria Routine general medical examination at a [facility] CBC WITH AUTO DIFFERENTIAL Routine 08/28/2024 10:00 AM PURCHASE ORDER CHECKER Gross hematuria Routine general medical examination at a health care facility C-REACTIVE PROTEIN Routine 08/28/2024 10:00 AM PURCHASE ORDER CHECKER Gross hematuria Routine general medical examination at a [facility] CREATININE Routine 08/28/2024 10:00 AM PURCHASE ORDER CHECKER Gross hematuria Routine general medical examination at a [facility] facility HEPATIC FUNCTION PANEL Routine 08/28/2024 10:00 AM PURCHASE ORDER CHECKER Gross hematuria Routine general medical examination at a health care facility CBC WITH AUTO DIFFERENTIAL Routine 08/28/2024 10:00 AM PURCHASE ORDER CHECKER Gross hematuria Routine general medical examination at a health care facility XR SPINE LUMBAR 2 VIEWS STANDING Routine 08/26/2024 2:15 PM PURCHASE ORDER CHECKER S/P lumbar fusion CBC WITH AUTO DIFFERENTIAL Routine 08/19/2024 11:00 AM PURCHASE ORDER CHECKER Spinal stenosis of lumbar region with neurogenic claudication HEPATIC FUNCTION PANEL Routine 08/19/2024 11:00 AM PURCHASE ORDER CHECKER Spinal stenosis of lumbar region with neurogenic claudication CBC WITH AUTO DIFFERENTIAL Routine 08/19/2024 11:00 AM PURCHASE ORDER CHECKER Spinal stenosis of lumbar region with neurogenic claudication C-REACTIVE PROTEIN Routine 08/19/2024 11:00 AM PURCHASE ORDER CHECKER Spinal stenosis of lumbar region with neurogenic claudication CREATININE Routine 08/19/2024 11:00 AM PURCHASE ORDER CHECKER Spinal stenosis of lumbar region with neurogenic claudication GLUCOSE METER Timed 08/15/2024 11:39 AM PURCHASE ORDER CHECKER GLUCOSE METER Timed 08/15/2024 8:54 AM PURCHASE ORDER CHECKER GLUCOSE METER Timed 08/14/2024 9:31 PM PURCHASE ORDER CHECKER GLUCOSE METER Timed 08/14/2024 4:26 PM PURCHASE ORDER CHECKER GLUCOSE METER Timed 08/14/2024 12:20 PM PURCHASE ORDER CHECKER GLUCOSE METER Timed 08/14/2024 11:05 AM PURCHASE ORDER CHECKER GLUCOSE METER Timed 08/14/2024 8:07 AM PURCHASE ORDER CHECKER POTASSIUM Early AM 08/14/2024 7:28 AM PURCHASE ORDER CHECKER GLUCOSE METER Timed 08/14/2024 2:03 AM PURCHASE ORDER CHECKER SCAN-ELECTROCARDIOGR AM EKG 08/14/2024 12:00 AM PURCHASE ORDER CHECKER GLUCOSE METER Timed 08/13/2024 9:33 PM PURCHASE ORDER CHECKER GLUCOSE METER Timed 08/13/2024 5:52 PM PURCHASE ORDER CHECKER GLUCOSE METER Timed 08/13/2024 2:12 PM PURCHASE ORDER CHECKER GLUCOSE METER Timed 08/13/2024 12:16 PM PURCHASE ORDER CHECKER POTASSIUM Early AM 08/13/2024 10:33 AM PURCHASE ORDER CHECKER GLUCOSE METER Timed 08/13/2024 9:30 AM PURCHASE ORDER CHECKER AEROBIC BACTERIAL CULTURE, STAIN Today 08/13/2024 8:18 AM PURCHASE ORDER CHECKER ANAEROBIC CULTURE Today 08/13/2024 8:1 8 AM PURCHASE ORDER CHECKER AEROBIC BACTERIAL CULTURE, STAIN Today 08/13/2024 8:13 AM PURCHASE ORDER CHECKER ANAEROBIC CULTURE Today 08/13/2024 8:1 3 AM PURCHASE ORDER CHECKER TISSUE CULTURE, STAIN (AEROBIC) Today 08/13/2024 8:11 AM PURCHASE ORDER CHECKER ANAEROBIC CULTURE Today 08/13/2024 8:1 1 AM PURCHASE ORDER CHECKER ENDOTRACHEAL TUBE Routine 08/13/2024 7:5 3 AM PURCHASE ORDER CHECKER ENDOTRACHEAL TUBE Routine 08/13/2024 7:5 3 AM PURCHASE ORDER CHECKER ENDOTRACHEAL TUBE Routine 08/13/2024 7:5 3 AM PURCHASE ORDER CHECKER INCISION DRAINAGE WOUND 08/13/2024 7:05 AM PURCHASE ORDER CHECKER Wound infection Case Notes AVERAGE SWING PRONElami tray3 litter of antibiotic solution GLUCOSE METER Timed 08/13/2024 6:22 AM PURCHASE ORDER CHECKER GLUCOSE METER Timed 08/13/2024 2:42 AM PURCHASE ORDER CHECKER UA W/ SEDIMENT EXAM REFLEXED PER CRITERIA Today 08/13/2024 12:19 AM PURCHASE ORDER CHECKER GLUCOSE METER Timed 08/12/2024 9:55 PM PURCHASE ORDER CHECKER GLUCOSE METER Timed 08/12/2024 5:37 PM PURCHASE ORDER CHECKER GLUCOSE METER Timed 08/12/2024 12:29 PM PURCHASE ORDER CHECKER C-REACTIVE PROTEIN Today 08/12/2024 11:55 AM PURCHASE ORDER CHECKER SEDIMENTATION RATE Today 08/12/2024 11:55 AM PURCHASE ORDER CHECKER WHITE BLOOD COUNT Today 08/12/2024 11:55 AM PURCHASE ORDER CHECKER POTASSIUM Early AM 08/12/2024 6:56 AM PURCHASE ORDER CHECKER GLUCOSE METER Timed 08/12/2024 6:29 AM PURCHASE ORDER CHECKER GLUCOSE METER Timed 08/12/2024 2:18 AM PURCHASE ORDER CHECKER GLUCOSE METER Timed 08/11/2024 10:27 PM PURCHASE ORDER CHECKER GLUCOSE METER Timed 08/11/2024 5:22 PM PURCHASE ORDER CHECKER GLUCOSE METER Timed 08/11/2024 12:04 PM PURCHASE ORDER CHECKER GLUCOSE METER Timed 08/11/2024 7:54 AM PURCHASE ORDER CHECKER CBC WITH AUTO DIFFERENTIAL Early AM 08/11/2024 7:14 AM PURCHASE ORDER CHECKER SEDIMENTATION RATE Early AM 08/11/2024 7: 14 AM PURCHASE ORDER CHECKER C-REACTIVE PROTEIN Early AM 08/11/2024 7: 14 AM PURCHASE ORDER CHECKER POTASSIUM Early AM 08/11/2024 7:14 AM PURCHASE ORDER CHECKER CBC WITH AUTO DIFFERENTIAL Early AM 08/11/2024 7:14 AM PURCHASE ORDER CHECKER GLUCOSE METER Timed 08/11/2024 2:10 AM PURCHASE ORDER CHECKER GLUCOSE METER Timed 08/10/2024 9:15 PM PURCHASE ORDER CHECKER GLUCOSE METER Timed 08/10/2024 5:24 PM PURCHASE ORDER CHECKER AEROBIC BACTERIAL CULTURE, STAIN Today 08/10/2024 2:46 PM PURCHASE ORDER CHECKER GLUCOSE METER Timed 08/10/2024 12:14 PM PURCHASE ORDER CHECKER GLUCOSE METER Timed 08/10/2024 8:13 AM PURCHASE ORDER CHECKER POTASSIUM Early AM 08/10/2024 7:00 AM PURCHASE ORDER CHECKER GLUCOSE METER Timed 08/10/2024 6:03 AM PURCHASE ORDER CHECKER GLUCOSE METER Timed 08/10/2024 2:04 AM PURCHASE ORDER CHECKER GLUCOSE METER Timed 08/09/2024 10:14 PM PURCHASE ORDER CHECKER GLUCOSE METER Timed 08/09/2024 5:55 PM PURCHASE ORDER CHECKER GLUCOSE METER Timed 08/09/2024 12:21 PM PURCHASE ORDER CHECKER VANCOMYCIN TROUGH Timed 08/09/2024 9:3 5 AM PURCHASE ORDER CHECKER C-REACTIVE PROTEIN Early AM 08/09/2024 9: 35 AM PURCHASE ORDER CHECKER CREATININE Early AM 08/09/2024 9:35 AM PURCHASE ORDER CHECKER POTASSIUM Early AM 08/09/2024 9:35 AM PURCHASE ORDER CHECKER SODIUM Early AM 08/09/2024 9:35 AM PURCHASE ORDER CHECKER MAGNESIUM Early AM 08/09/2024 9:35 AM PURCHASE ORDER CHECKER CBC W PLT NO DIFF Early AM 08/09/2024 9:3 4 AM PURCHASE ORDER CHECKER GLUCOSE METER Timed 08/09/2024 8:00 AM PURCHASE ORDER CHECKER GLUCOSE METER Timed 08/09/2024 2:04 AM PURCHASE ORDER CHECKER GLUCOSE METER Timed 08/08/2024 9:25 PM PURCHASE ORDER CHECKER GLUCOSE METER Timed 08/08/2024 4:47 PM PURCHASE ORDER CHECKER GLUCOSE METER Timed 08/08/2024 11:41 AM PURCHASE ORDER CHECKER GLUCOSE METER Timed 08/08/2024 6:36 AM PURCHASE ORDER CHECKER CREATININE Early AM 08/08/2024 6:27 AM PURCHASE ORDER CHECKER SODIUM Early AM 08/08/2024 6:27 AM PURCHASE ORDER CHECKER MAGNESIUM Early AM 08/08/2024 6:27 AM PURCHASE ORDER CHECKER C-REACTIVE PROTEIN Early AM 08/08/2024 6: 27 AM PURCHASE ORDER CHECKER CBC W PLT NO DIFF Early AM 08/08/2024 6:2 7 AM PURCHASE ORDER CHECKER POTASSIUM Early AM 08/08/2024 6:27 AM PURCHASE ORDER CHECKER GLUCOSE METER Timed 08/08/2024 2:30 AM PURCHASE ORDER CHECKER GLUCOSE METER Timed 08/07/2024 10:22 PM PURCHASE ORDER CHECKER GLUCOSE METER Timed 08/07/2024 4:19 PM PURCHASE ORDER CHECKER ANAEROBIC CULTURE Today 08/07/2024 10:07 AM PURCHASE ORDER CHECKER AEROBIC BACTERIAL CULTURE, STAIN Today 08/07/2024 10:07 AM PURCHASE ORDER CHECKER GLUCOSE METER Timed 08/07/2024 9:55 AM PURCHASE ORDER CHECKER CT ASPIRATION PELVIS TREV 08/07/2024 9:42 AM PURCHASE ORDER CHECKER CBC WITH AUTO DIFFERENTIAL Early AM 08/07/2024 6:44 AM PURCHASE ORDER CHECKER PROTIME-INR Early AM 08/07/2024 6:44 AM PURCHASE ORDER CHECKER C-REACTIVE PROTEIN Early AM 08/07/2024 6: 44 AM PURCHASE ORDER CHECKER CBC WITH AUTO DIFFERENTIAL Early AM 08/07/2024 6:44 AM PURCHASE ORDER CHECKER MAGNESIUM Early AM 08/07/2024 6:44 AM PURCHASE ORDER CHECKER BASIC METABOLIC PANEL Early AM 08/07/2024 6:44 AM PURCHASE ORDER CHECKER GLUCOSE METER Timed 08/07/2024 2:48 AM PURCHASE ORDER CHECKER GLUCOSE METER Timed 08/06/2024 9:44 PM PURCHASE ORDER CHECKER GLUCOSE METER Timed 08/06/2024 5:19 PM PURCHASE ORDER CHECKER POTASSIUM Timed 08/06/2024 5:02 PM PURCHASE ORDER CHECKER GLUCOSE METER Timed 08/06/2024 3:14 PM PURCHASE ORDER CHECKER CT PELVIS W STAT 08/06/2024 1:51 PM PURCHASE ORDER CHECKER GLUCOSE METER Timed 08/06/2024 11:21 AM PURCHASE ORDER CHECKER GLUCOSE METER Timed 08/06/2024 7:41 AM PURCHASE ORDER CHECKER BASIC METABOLIC PANEL Early AM 08/06/2024 5:06 AM PURCHASE ORDER CHECKER CBC W PLT NO DIFF Early AM 08/06/2024 5:0 6 AM PURCHASE ORDER CHECKER XR MAMMO TAMICA BILAT SCREEN Routine 08/23/2023 1:18 PM PURCHASE ORDER CHECKER Visit for screening mammogram LDL CHOLESTEROL,DIRECT Routine 08/16/2023 10:51 AM PURCHASE ORDER CHECKER Diabetes mellitus without complication (HC) COLONOSCOPY SCREENING Routine 12/16/2021 8:02 AM CDT Screening for colon cancer ANTI HIV 1/2 Add On 12/31/2018 10:40 AM CDT Has multiple sexual partners ACUTE HEPATITIS PANEL Routine 03/07/2010 3:18 PM CDT Routine screening for STI (sexually transmitted infection) from Last 3 Months or Most Recently Relevant to Health Maintenance Results * (ABNORMAL) GLUCOSE METER (10/01/2024 12:24 PM PURCHASE ORDER CHECKER) Only the most recent of58 resultswithin the time period is included. GLUCOSE METER 188(H) 65 - 100 mg/dL 10/01/2024 12:25 PM PURCHASE ORDER CHECKER [facility] Blood BLOOD SPECIMEN / Unknown 10/01/2024 12:24 PM PURCHASE ORDER CHECKER 10/01/2024 12:25 PM PURCHASE ORDER CHECKER Result [facility] CHEMISTRY Fi nal Result Performing Organization Address City/[facility]/ZIP Co de Phone Number [facility] SENDOUT INTERNAL ZIP [address] [place] [phone] * POTASSIUM (10/01/2024 5:52 AM PURCHASE ORDER CHECKER) Only the most recent of10 resultswithin the time period is included. POTASSIUM 4.1 3.5 - 5.1 mmol/L 10/01/2024 8:01 AM PURCHASE ORDER CHECKER [facility] Blood BLOOD SPECIMEN / Unknown Venipuncture / Unknown 10/01/2024 5:52 AM PURCHASE ORDER CHECKER 10/01/2024 6:12 AM PURCHASE ORDER CHECKER Result [facility] CHEMISTRY Fi nal Result Performing Organization Address City/[facility]/ZIP Co de Phone Number [facility] SENDOUT INTERNAL ZIP [address] [place] [phone] * (ABNORMAL) MAGNESIUM (10/01/2024 5:52 AM PURCHASE ORDER CHECKER) Only the most recent of5 resultswithin the time period is included. MAGNESIUM 1.5(L) 1.6 - 2.6 mg/dL 10/01/2024 7:00 AM PURCHASE ORDER CHECKER [facility] Blood BLOOD SPECIMEN / Unknown Venipuncture / Unknown 10/01/2024 5:52 AM PURCHASE ORDER CHECKER 10/01/2024 6:12 AM PURCHASE ORDER CHECKER Result [facility] Tana [facility] CHEMISTRY Fi nal Result [facility] SENDOUT INTERNAL ZIP [address] [place] [phone] * (ABNORMAL) CBC (09/30/2024 5:10 AM [facility]) Only the most recent of5 resultswithin the time period is included. WHITE BLOOD COUNT 8.1 4.5 - 11.0 thou/cu mm 09/30/2024 6:[address] [facility] RED BLOOD COUNT 4.10 4.00 - 5.20 mil/cu mm 09/30/2024 6:11 AM [facility] HEMOGLOBIN 10.0(L) 12.0 - 16.0 g/dL 09/30/2024 6:11 AM [facility] HEMATOCRIT 31.8(L) 33.0 - 51.0 % 09/30/2024 6:11 AM [facility] MCV 78(L) 80 - 100 fL 09/30/2024 6:11 AM [facility] MCH 24.4(L) 26.0 - 34.0 pg 09/30/2024 6:11 AM [facility] MCHC 31.4(L) 32.0 - 36.0 g/dL 09/30/2024 6:11 AM [facility] RDW 15.8(H) 11.5 - 15.5 % 09/30/2024 6:11 AM [facility] PLATELET COUNT 315 140 - 440 thou/cu mm 09/30/2024 6:11 AM [facility] MPV 9.6 6.5 - 11.0 fL 09/30/2024 6:11 AM [facility] NRBC 0.0 % 09/30/2024 6:[address] [facility] ABS NRBC 0.0 thou /cu mm 09/30/2024 6:[address] [facility] Blood BLOOD SPECIMEN / Unknown Venipuncture / Unknown 09/30/2024 5:10 AM PURCHASE ORDER CHECKER 09/30/2024 6:03 AM [facility] - 09/30/2024 6:11 AM PURCHASE ORDER CHECKER Call if Hemoglobin less than 10. us Ja [facility] Final Result [facility] SENDOUT INTERNAL ZIP [phone] [place] [phone] * (ABNORMAL) Basic Metabolic Panel (09/30/2024 5:10 AM [facility]) Only the most recent of5 resultswithin the time period is included. SODIUM 143 136 - 145 mmol/L 09/30/2024 6:[address] [facility] POTASSIUM 3.0(L) 3.5 - 5.1 mmol/L 09/30/2024 6:[address] [facility] CHLORIDE 105 98 - 107 mmol/L 09/30/2024 6:[address] [facility] CO2,TOTAL 28 22 - 29 mmol/L 09/30/2024 6:[address] [facility] ANION GAP 10 5 - 18 09/30/2024 6:[address] [facility] GLUCOSE 144(H) 70 - 99 mg/dL 09/30/2024 6:[address] [facility] CALCIUM 8.9 8.8 - 10.4 mg/dL 09/30/2024 6:[address] [facility] Comment: Reference ranges for this test were updated on 07/01/2024 to reflect our healthy population more accurately. Reference range changes are not retroactively applied to results, but previous results using the same methodology can be interpreted in the context of the new reference range. BUN 4(L) 6 - 20 mg/dL 09/30/2024 6:[address] [facility] CREATININE 0.62 0.50 - 0.90 mg/dL 09/30/2024 6:[address] [facility] CLINIC LABORATORY BUN/CREAT RATIO 6(L) 10 - 20 6:[address] [facility] eGFR >90 >90 mL/min/1. 73m2 09/30/2024 6:[address] [facility] Comment:As of 2021, eG FR is calculated by the CKD-EPI creatinine equation without race adjustment. eGFR can be influenced by muscle mass, exercise, and diet. The reported eGFR is an estimation only and is only applicable if the renal function is stable. Blood BLOOD SPECIMEN / Unknown Venipuncture / Unknown 09/30/2024 5:10 AM PURCHASE ORDER CHECKER 09/30/2024 6:03 AM PURCHASE ORDER CHECKER us Ja AVALOS CHEMISTRY Final Result [facility] SENDOUT [place]NAL ZIP [phone] [place] [address] * XR CHEST 1 VIEW PORTABLE (09/30/2024 12:18 AM PURCHASE ORDER CHECKER) Anatomical Region Laterality Modality HEART, THORAX, CHEST Computed Ra diography 09/30/2024 12:1 8 AM PURCHASE ORDER CHECKER Impressions 09/30/2024 1:11 AM PURCHASE ORDER CHECKER Right PICC line tip over the upper SVC. Normal heart size and pulmonary vascularity. Lungs are clear. Narrative 09/30/2024 1:11 AM PURCHASE ORDER CHECKER For Patients: As a result of the Cures Act, medical imaging exams and procedure reports are released immediately into your electronic medical record. You may view this report before your referring provider. If you have questions, please contact your health care provider. EXAM: XR CHEST 1 VIEW PORTABLE LOCATION: [facility] MEDICAL IMAGING DATE: 09/30/2024 INDICATION: Line placement. COMPARISON: 09/18/2024. Procedure Note Randy Cano MD - 09/30/2024 For Patients: As a result of the Cures Act, medical imagingexams and procedure reports are released immediately into your electronicmedical record. You may view this report before your referring provider.If you have questions, please contact your health care provider. EXAM: XR CHEST 1 VIEW PORTABLE LOCATION: [facility] MEDICAL IMAGING DATE: 09/30/2024 INDICATION: Line placement. COMPARISON: 09/18/2024. IMPRESSION: Right PICC line tip over the upper SVC. Normal heart size and pulmonaryvascularity. Lungs are clear. us Ridge Colindres MD GENERAL IMAGING Fin al Result * (ABNORMAL) TISSUE CULTURE, STAIN (AEROBIC) (09/29/2024 5:16 PM PURCHASE ORDER CHECKER) Only the most recent of2 resultswithin the time period is included. CULTURE RESULT(A) 10/02/2024 9:56 AM PURCHASE ORDER CHECKER [facility]- [facility] LABORATORY CULTURE 1+ Staphylococcus coagulase negative 10/02/2024 9:56 AM PURCHASE ORDER CHECKER [facility] GRAM STAIN 1+ PMNs 10/02/2024 9:56 AM PURCHASE ORDER CHECKER [facility] GRAM STAIN 1+ Epithelial cells 10/02/2024 9:56 AM PURCHASE ORDER CHECKER [facility] GRAM STAIN No RBCs 10/02/2024 9:56 AM PURCHASE ORDER CHECKER [facility] GRAM STAIN No organisms seen 025 9:56 AM PURCHASE ORDER CHECKER [facility] GRAM STAIN Gram stain performed by [place] 10/02/2024 9:56 AM PURCHASE ORDER CHECKER [facility] Tissue SPECIMEN FROM ABDOMINAL CAVITY / Unknown Non-Blood / Unknown 09/29/2024 5:16 PM PURCHASE ORDER CHECKER 09/29/2024 5:45 PM PURCHASE ORDER CHECKER Narrative Organism Antibiotic Method Susceptibility Staphylococcus coagulase negative OXACILLIN >=4: R Staphylococcus coagulase negative CLINDAMYCIN 0.25: S Staphylococcus coagulase negative DOXYCYCLINE <=0.5: S Staphylococcus coagulase negative CEFAZOLIN R Staphylococcus coagulase negative VANCOMYCIN 1: S Staphylococcus coagulase negative TRIMETHOPRIM/SULF 4: R Tana Edwards [facility] MICROBIOLOGY Fi nal Result Performing Organization Address City/[facility]/ZIP Co de Phone Number [facility] [address] [place] [address], [facility] SENDOUT INTERNAL ZIP [phone] [place] [address] * ANAEROBIC CULTURE (09/29/2024 5:16 PM PURCHASE ORDER CHECKER) Only the most recent of5 resultswithin the time period is included. CULTURE No anaerobes isolated 10/06/2024 12:02 PM PURCHASE ORDER CHECKER [facility] TRAL LABORATORY Tissue SPECIMEN FROM ABDOMINAL CAVITY / Unknown Non-Blood / Unknown 09/29/2024 5:16 PM PURCHASE ORDER CHECKER 09/29/2024 5:45 PM PURCHASE ORDER CHECKER [facility] Fi nal Result [facility] [address] [place] [address], * HCHG TUBE PR1, HCHG STYLET PR1, HCHG MOUTHPIECE PR1 (09/29/2024 5:04 PM PURCHASE ORDER CHECKER) Narrative Raul Issa CRNA - 09/29/2024 5:04 PM PURCHASE ORDER CHECKER Raul Issa CRNA 09/29/2024 5:05 PM Procedure: [...] * (ABNORMAL) GLUCOSE, RANDOM (09/29/2024 2:42 PM PURCHASE ORDER CHECKER) Pathologist [facility] GLUCOSE,RANDOM 184(H) 70 - 139 mg/dL 09/29/2024 3:14 PM PURCHASE ORDER CHECKER [facility] Blood BLOOD SPECIMEN / Unknown Butterfly / Unknown 09/29/2024 2:42 PM PURCHASE ORDER CHECKER 09/29/2024 2:46 PM PURCHASE ORDER CHECKER Tana GRIMES CHEMISTRY Fi nal Result [facility] SENDOUT INTERNAL ZIP [phone] [place] [address] * MR SPINE LUMBAR WWO (09/29/2024 11:28 AM PURCHASE ORDER CHECKER) Anatomical Region Laterality Modality Spine, LUMBAR SPINE Magnetic Res onance 09/29/2024 11:2 8 AM PURCHASE ORDER CHECKER Impressions 09/29/2024 12:23 PM PURCHASE ORDER CHECKER 1. Postoperative and mild degenerative change of [...] Clinical correlation recommended. Narrative 09/29/2024 12:23 PM PURCHASE ORDER CHECKER For Patients: As a result of the Cures Act, medical imaging exams and procedure reports are released immediately into your electronic medical record. You may view this report before your referring provider. If you have questions, please contact your health care provider. EXAM: MR SPINE LUMBAR WWO LOCATION: [facility] MEDICAL IMAGING DATE: 09/29/2024 INDICATION: Postoperative infection, [...] provider. EXAM: MR SPINE LUMBAR WWO LOCATION: [facility] MEDICAL IMAGING DATE: 09/29/2024 INDICATION: Postoperative infection, [...] sult * SCAN-CARDIAC STRIP (09/29/2024 12:00 AM PURCHASE ORDER CHECKER) Narrative 09/29/2024 12:00 AM PURCHASE ORDER CHECKER Ordered by an unspecified provider. Other Clinical Staff OTHER Final Resul t * (ABNORMAL) AEROBIC BACTERIAL CULTURE, STAIN (09/25/2024 11:19 AM PURCHASE ORDER CHECKER) Only the most recent of5 resultswithin the time period is included. CULTURE RESULT(A) 09/27/2024 10:55 AM PURCHASE ORDER CHECKER [facility] LAB[facility]-CE NTRAL LABORATORY CULTURE 3+ Staphylococcus coagulase negative 09/27/2024 10:55 AM PURCHASE ORDER CHECKER [facility] GRAM STAIN 1+ PMNs 09/27/2024 10:55 AM PURCHASE ORDER CHECKER [facility] GRAM STAIN 2+ Gram Positive Cocci 09/27/2024 10:55 AM PURCHASE ORDER CHECKER [facility] GRAM STAIN 3+ RBCs 09/27/2024 10:55 AM PURCHASE ORDER CHECKER [facility] GRAM STAIN No Epithelial cells 09/27/2024 10:55 AM PURCHASE ORDER CHECKER [facility] GRAM STAIN Gram stain performed by [place] 09/27/2024 10:55 AM PURCHASE ORDER CHECKER [facility] Other (Other) Non-Blood / Unknown 09/25/2024 11:19 AM PURCHASE ORDER CHECKER 09/25/2024 11:19 AM PURCHASE ORDER CHECKER Narrative Organism Antibiotic Method Susceptibility Staphylococcus coagulase negative OXACILLIN >=4: R Staphylococcus coagulase negative CLINDAMYCIN >=4: R Staphylococcus coagulase negative DOXYCYCLINE 1: S Staphylococcus coagulase negative CEFAZOLIN R Staphylococcus coagulase negative VANCOMYCIN 1: S Staphylococcus coagulase negative TRIMETHOPRIM/SULF 76: R Jo-Ann Oquendo NP MICROBIOLOGY Final Result [facility]AL LABORATORY [address] [place] [address], [facility] SENDOUT INTERNAL ZIP [address] [place] [address] * (ABNORMAL) CBC WITH AUTO DIFFERENTIAL (09/22/2024 11:00 AM PURCHASE ORDER CHECKER) Only the most recent of8 resultswithin the time period is included. WHITE BLOOD COUNT 10.5 4.5 - 11.0 thou/cu mm 09/22/2024 12:50 PM [facility] RED BLOOD COUNT 4.33 4.00 - 5.20 mil/cu mm 09/22/2024 12:50 PM [facility] HEMOGLOBIN 10.5(L) 12.0 - 16.0 g/dL 09/22/2024 12:50 PM [facility] HEMATOCRIT 33.7 33.0 - 51.0 % 09/22/2024 12:50 PM [facility] MCV 78(L) 80 - 100 fL 09/22/2024 12:50 PM [facility] MCH 24.2(L) 26.0 - 34.0 pg 09/22/2024 12:50 PM [facility] MCHC 31.2(L) 32.0 - 36.0 g/dL 09/22/2024 12:50 PM [facility] RDW 15.5 11.5 - 15.5 % 09/22/2024 12:50 PM [facility] PLATELET COUNT 422 140 - 440 thou/cu mm 09/22/2024 12:50 PM [facility] MPV 9.9 6.5 - 11.0 fL 09/22/2024 12:50 PM [facility] % NEUT 68.2 % 09/22/2024 12:50 PM [facility] % LYMPH 21.8 % 09/22/2024 12:50 PM [facility] % MONO 8.2 % 09/22/2024 12:50 PM [facility] % EOS 1.7 % 09/22/2024 12:50 PM [facility] % BASO 0.1 % 09/22/2024 12:50 PM [facility] ABSOLUTE NEUTROPHILS 7.2(H) 1.7 - 7.0 thou/cu mm 09/22/2024 12:50 PM [facility] ABSOLUTE LYMPHOCYTES 2.3 0.9 - 2.9 thou/cu mm 09/22/2024 12:50 PM [facility] ABSOLUTE MONOCYTES 0.9(H) <0.9 thou/cu mm 09/22/2024 12:50 PM [facility] ABSOLUTE EOSINOPHILS 0.2 <0.5 thou/cu mm 09/22/2024 12:50 PM [facility] ABSOLUTE BASOPHILS 0.0 <0.3 thou/cu mm 09/22/2024 12:50 PM [facility] Blood BLOOD SPECIMEN / Unknown Non-Lab Venipuncture / Unknown 09/22/2024 11:00 AM [facility] 09/22/2024 12:46 PM [facility] LABORATORY - 09/22/2024 12:50 PM [facility] This procedure was originally ordered at [facility]. us Justin Garsia MD HEMATOLOGY Final Result [facility] [address] [place] [address] * CREATININE (09/22/2024 11:00 AM [facility]) Only the most recent of7 resultswithin the time period is included. eGFR >90 >90 mL/min/1.7 3m2 09/22/2024 1:11 PM [facility] Comment:As of 2021, eG FR is calculated by the CKD-EPI creatinine equation without race adjustment. eGFR can be influenced by muscle mass, exercise, and diet. The reported eGFR is an estimation only and is only applicable if the renal function is stable. CREATININE 0.69 0.50 - 0.90 mg/dL 09/22/2024 1:11 PM [facility] Blood BLOOD SPECIMEN / Unknown Non-Lab Venipuncture / Unknown 09/22/2024 11:00 AM PURCHASE ORDER CHECKER 09/22/2024 12:46 PM PURCHASE ORDER CHECKER Justin Garsia MD CHEMISTRY Final Result Performing Organization Address City/[facility] Co de Phone Number [facility] [address] [place] [address] * (ABNORMAL) C-REACTIVE PROTEIN (09/22/2024 11:00 AM PURCHASE ORDER CHECKER) Only the most recent of12 resultswithin the time period is included. C-REACTIVE PROTEIN 1.9(H) <0.5 mg/dL 09/22/2024 1:11 PM [facility] Blood BLOOD SPECIMEN / Unknown Non-Lab Venipuncture / Unknown 09/22/2024 11:00 AM PURCHASE ORDER CHECKER 09/22/2024 12:46 PM PURCHASE ORDER CHECKER Justin Garsia MD CHEMISTRY Final Result Performing Organization Address City/[facility]/ZIP Co de Phone Number [facility] [address] [place] [address] * (ABNORMAL) HEPATIC FUNCTION PANEL (09/22/2024 11:00 AM PURCHASE ORDER CHECKER) Only the most recent of6 resultswithin the time period is included. ALBUMIN 3.4(L) 4.0 - 4.9 g/dL 09/22/2024 1:11 PM [facility] PROTEIN,TOTAL 7.0 6.0 - 8.0 g/dL 09/22/2024 1:11 PM [facility] BILIRUBIN,TOTAL 0.3 0.0 - 1.2 mg/dL 09/22/2024 1:11 PM [facility] BILIRUBIN,DIRECT 0.2 0.0 - 0.2 mg/dL 09/22/2024 1:11 PM [facility] BILIRUBIN,INDIRE CT 0.1(L) 0.2 - 0.8 mg/dL 09/22/2024 1:11 PM [facility] ALK PHOSPHATASE 122(H) 35 - 104 IU/L 09/22/2024 1:11 PM [facility] ALT (SGPT) 12 10 - 35 IU/L 09/22/2024 1:11 PM [facility] AST (SGOT) 36(H) 10 - 35 IU/L 09/22/2024 1:11 PM [facility] Blood BLOOD SPECIMEN / Unknown Non-Lab Venipuncture / Unknown 09/22/2024 11:00 AM [facility] 09/22/2024 12:46 PM [facility] Justin Garsia MD CHEMISTRY Final Result [facility] [address] [place] [address] * COVID/FLU/RSV PANEL (09/18/2024 2:08 PM [facility]) COVID 19 [facility] MOLECULAR Negative Negative 09/18/2024 3:[address] [facility] Comment:All PCR tests are rodgers bject to false negative result due to variability in viral load and collection technique. A negative result does not rule out a SARS-CoV-2 infection. Clinical correlation required. INFLUENZA A PCR Negative 3:[address] [facility] INFLUENZA B PCR Negative 3:[address] [facility] Respiratory Syncytial Virus Negative 09/18/2024 3:[address] [facility] Swab SPECIMEN FROM NASOPHARYNGEAL STRUCTURE / Unknown Non-Blood / Unknown 09/18/2024 2:08 PM PURCHASE ORDER CHECKER 09/18/2024 2:24 PM PURCHASE ORDER CHECKER Elizabeth AVALOS MICROBIOLOGY Final Re sult [facility] SENDOUT INTERNAL ZIP [phone] [place] [address] * UA W/ SEDIMENT EXAM REFLEXED PER CRITERIA (09/18/2024 2:08 PM PURCHASE ORDER CHECKER) Only the most recent of2 resultswithin the time period is included. COLOR Yellow Yellow Color 09/18/2024 2:30 PM PURCHASE ORDER CHECKER [facility] CLARITY Clear Clear Clarity 09/18/2024 2:30 PM PURCHASE ORDER CHECKER [facility] SPECIFIC GRAVITY,URINE 1.020 1.010, 1.015, 1.020, 1.025 09/18/2024 2:[address] [facility] PH,URINE 6.5 6.0, 7.0, 8.0, 5.5, 6.5, 7.5, 8.5 09/18/2024 2:[address] [facility] UROBILINOGEN, QUALITATIVE Normal Normal EU/dl 09/18/2024 2:[address] [facility] PROTEIN, URINE Negative Negative mg/dL 09/18/2024 2:[address] [facility] GLUCOSE, URINE Negative Negative mg/dL 09/18/2024 2:[address] [facility] KETONES,URINE Negative Negative mg/dL 09/18/2024 2:[address] [facility] BILIRUBIN,URI NE Negative Negative 09/18/2024 2:30 PM PURCHASE ORDER CHECKER [facility] OCCULT BLOOD,URINE Negative Negative 09/18/2024 2:[address] [facility] NITRITE Negative Negative 09/18/2024 2:30 PM PURCHASE ORDER CHECKER [facility] LEUKOCYTE ESTERASE Negative Negative 09/18/2024 2:[address] [facility] Urine URINE SPECIMEN / Unknown Non-Blood / Unknown 09/18/2024 2:08 PM PURCHASE ORDER CHECKER 09/18/2024 2:24 PM PURCHASE ORDER CHECKER Elizabeth AVALOS URINE Final Re sult [facility] SENDOUT INTERNAL ZIP [phone] [place] [address] * CT Abdomen Pelvis w IV (Oral Contrast = NO) (09/18/2024 1:52 PM PURCHASE ORDER CHECKER) Anatomical Region Laterality Modality Abdomen, Pelvis, AORTA, LIVER, SPLEEN Computed Tomography 09/18/2024 1:52 PM PURCHASE ORDER CHECKER Impressions 09/18/2024 2:05 PM PURCHASE ORDER CHECKER 1. Atelectasis noted within the posterior surgical [...] other acute findings. Narrative 09/18/2024 2:05 PM PURCHASE ORDER CHECKER For Patients: As a result of the Cures Act, medical imaging exams and procedure reports are released immediately into your electronic medical record. You may view this report before your referring provider. If you have questions, please contact your health care provider. EXAM: CT ABDOMEN PELVIS W LOCATION: [facility] MEDICAL IMAGING DATE: 09/18/2024 INDICATION: Postoperative changes [...] provider. EXAM: CT ABDOMEN PELVIS W LOCATION: [facility] MEDICAL IMAGING DATE: 09/18/2024 INDICATION: Postoperative changes [...] OR CVAD PLACEMENT PORTABLE (09/18/2024 12:29 PM PURCHASE ORDER CHECKER) Anatomical Region Laterality Modality HEART, THORAX, CHEST Computed Ra diography 09/18/2024 12:2 9 PM PURCHASE ORDER CHECKER Impressions 09/18/2024 12:33 PM PURCHASE ORDER CHECKER No consolidation. No pleural effusions or pneumothorax. Right PICC tip projects at the cavoatrial junction. Normal cardiac size. Narrative 09/18/2024 12:33 PM PURCHASE ORDER CHECKER For Patients: As a result of the Cures Act, medical imaging exams and procedure reports are released immediately into your electronic medical record. You may view this report before your referring provider. If you have questions, please contact your health care provider. EXAM: XR CHEST 1 VIEW PICC OR CVAD PLACEMENT PORTABLE LOCATION: [facility] MEDICAL IMAGING DATE: 09/18/2024 INDICATION: Nausea. Vomiting. [...] VIEW PICC OR CVAD PLACEMENT PORTABLE LOCATION: [facility] MEDICAL IMAGING DATE: 09/18/2024 INDICATION: Nausea. Vomiting. Diarrhea. Recent surgery. COMPARISON: None. IMPRESSION: No consolidation. No pleural effusions or pneumothorax. Right PICC tipprojects at the cavoatrial junction. Normal cardiac size. Elizabeth AVALOS GENERAL IMAGING Final Re sult * (ABNORMAL) SEDIMENTATION RATE (09/18/2024 11:54 AM PURCHASE ORDER CHECKER) Only the most recent of3 resultswithin the time period is included. SEDIMENTATION RATE 108(H) <30 mm/hr 2024 3:08 PM PURCHASE ORDER CHECKER [facility] Blood BLOOD SPECIMEN / Unknown Extra Tube / Unknown 09/18/2024 11:54 AM PURCHASE ORDER CHECKER 09/18/2024 11:54 AM PURCHASE ORDER CHECKER Elizabeth AVALOS HEMATOLOGY Final Re sult [facility] SENDOUT INTERNAL ZIP [phone] [place] [address] * EXTRA TUBE LAVENDER (09/18/2024 11:54 AM PURCHASE ORDER CHECKER) Blood BLOOD SPECIMEN / Unknown Extra Tube / Unknown 09/18/2024 11:54 AM PURCHASE ORDER CHECKER 09/18/2024 11:54 AM PURCHASE ORDER CHECKER Doctor Unknown LABORATORY Final Result Performing Organization Address [facility]/ZIP Co de Phone Number [facility] SENDOUT INTERNAL ZIP [phone] [place] [address] * CLOSTRIDIOIDES DIFFICILE TOXIN PCR (09/17/2024 9:05 AM PURCHASE ORDER CHECKER) CLOSTRIDIUM DIFFICILE PCR Negative 09/17/2024 2:11 PM PURCHASE ORDER CHECKER [facility] TRAL LABORATORY PRESUMPTIVE NAP1 STRAIN Negative 09/17/2024 2:11 PM PURCHASE ORDER CHECKER [facility] TRA LABORATORY Stool STOOL SPECIMEN / Unknown Non-Blood / Unknown 09/17/2024 9:05 AM PURCHASE ORDER CHECKER 09/17/2024 9:42 AM PURCHASE ORDER CHECKER Narrative [facility]AL LAB[facility]ATORY - 09/17/2024 2:11 PM PURCHASE ORDER CHECKER The NAP1 (027 or BI) strain is a hypervirulent strain. Detection may be useful for epidemiological purposes. Brooke Nur MD MICROBIOLOGY Final Resul t Performing Organization Address City/[facility]/ZIP Co de Phone Number [facility] [address] [place] [address], * (ABNORMAL) POCT Urinalysis Dipstick Only (09/11/2024 2:04 PM PURCHASE ORDER CHECKER) PH 6.0 5.0 - 8.0 [facility] SPECIFIC GRAVITY 1.015 1.001 - 1.035 [facility] GLUCOSE NEGATIVE NEGATIVE [facility] BILIRUBIN NEGATIVE NEGATIVE [facility] KETONES NEGATIVE NEGATIVE [facility] OCCULT BLOOD NEGATIVE NEGATIVE [facility] PROTEIN TRACE(A) NEGATIVE [facility] NITRITE NEGATIVE NEGATIVE [facility] LEUKOCYTE ESTERASE TRACE(A) NEGATIVE [facility] Urine URINE SPECIMEN / Unknown 09/11/2024 2:04 PM PURCHASE ORDER CHECKER 09/11/2024 2:05 PM PURCHASE ORDER CHECKER Brooke Nur MD URINE Final Resul t [facility] [address] [place] [address], [facility] [address] [place] [address] * (ABNORMAL) URINALYSIS MICROSCOPIC (09/11/2024 1:30 PM PURCHASE ORDER CHECKER) RBC 3-5(A) 0-2, None Seen /HPF 09/12/2024 8:59 AM PURCHASE ORDER CHECKER [facility] TRAL LABORATORY WBC 3-5 0-2, 3-5, None Seen /HPF 09/12/2024 8:59 AM PURCHASE ORDER CHECKER [facility] TR[facility] LABORATORY BACTERIA None Seen None Seen, Rare, Few Bacteria/ HPF 09/12/2024 8:59 AM PURCHASE ORDER CHECKER [facility] TR[facility] LAB[facility] EPITHELIAL CELLS Few None Seen, Few Epi/HPF 09/12/2024 8:59 AM PURCHASE ORDER CHECKER [facility] TR[facility] LABORAT[facility] HYALINE CASTS 3-5 0-2, 3-5 /LPF 09/12/2024 8:59 AM PURCHASE ORDER CHECKER [facility] TRAL LABORATORY Urine URINE SPECIMEN / Unknown Non-Blood / Unknown 09/11/2024 1:30 PM PURCHASE ORDER CHECKER 09/11/2024 2:04 PM PURCHASE ORDER CHECKER Narrative [facility]-CENTRAL LABORATORY - 09/12/2024 8:59 AM PURCHASE ORDER CHECKER Possible artefact or medication related elements. If there is indication for more UA testing, please order and send a fresh specimen. Reviewed by Dr. Mariano Boudreaux MD,Pathologist 09/12/24 us Brooke Nur MD URINE Final Resul t Performing Organization Address City/[facility]/ZIP Co de Phone Number [facility] [address] [place] [address], * URINE CULTURE (09/11/2024 1:30 PM PURCHASE ORDER CHECKER) CULTURE <10,000 CFU/mL multiple organisms 09/13/2024 2:36 PM PURCHASE ORDER CHECKER [facility] TRAL LABORATORY Urine URINE SPECIMEN / Unknown Non-Blood / Unknown 09/11/2024 1:30 PM PURCHASE ORDER CHECKER 09/11/2024 2:04 PM PURCHASE ORDER CHECKER Brooke Nur MD MICROBIOLOGY Final Resul t Performing Organization Address [facility] Co de Phone Number [facility] [address] [place] [address], * WHITE BLOOD COUNT (09/08/2024 12:17 PM PURCHASE ORDER CHECKER) Only the most recent of2 resultswithin the time period is included. WHITE BLOOD COUNT 8.7 4.5 - 11.0 thou/cu mm 09/08/2024 12:20 PM PURCHASE ORDER CHECKER [facility] Blood BLOOD SPECIMEN / Unknown Non-Lab Venipuncture / Unknown 09/08/2024 12:17 PM PURCHASE ORDER CHECKER 09/08/2024 12:17 PM PURCHASE ORDER CHECKER Narrative [facility] - 09/08/2024 12:20 PM PURCHASE ORDER CHECKER Lab order given to patient This procedure was originally ordered at [facility]. us Pawan AVALOS HEMATOLOGY Final Resu lt Performing Organization Address City/[facility]/ZIP Co de Phone Number [facility] [address] [place] [address] * CT ABDOMEN PELVIS WO (09/05/2024 8:17 AM PURCHASE ORDER CHECKER) Anatomical Region Laterality Modality Abdomen, Pelvis, AORTA, LIVER, SPLEEN Computed Tomography 09/05/2024 8:50 AM PURCHASE ORDER CHECKER Impressions 09/05/2024 8:50 AM PURCHASE ORDER CHECKER Status post CT-guided aspiration with interval reduction [...] AM (Electronically Signed) Narrative 09/05/2024 8:50 AM PURCHASE ORDER CHECKER For Patients: As a result of the [...] LUMBAR 2 VIEWS STANDING (08/26/2024 2:15 PM PURCHASE ORDER CHECKER) Anatomical Region Laterality Modality Spine, LUMBAR SPINE Computed Rad iography 08/26/2024 2:15 PM PURCHASE ORDER CHECKER Impressions 08/26/2024 5:54 PM PURCHASE ORDER CHECKER Nomenclature is based on 5 lumbar type [...] hip joints appear Narrative 08/26/2024 5:54 PM PURCHASE ORDER CHECKER For Patients: As a result of the Century Cures Act, medical imaging exams and procedure reports are released immediately into your electronic medical record. You may view this report before your referring provider. If you have questions, please contact your health care provider. EXAM: XR SPINE LUMBAR 2 VIEWS STANDING LOCATION: [facility] DATE: 08/26/2024 INDICATION: S/p Lumbar Fusion [...] XR SPINE LUMBAR 2 VIEWS STANDING LOCATION: [facility] DATE: 08/26/2024 INDICATION: S/p Lumbar Fusion [...] lt * SCAN-ELECTROCARDIOGRAM EKG (08/14/2024 12:00 AM PURCHASE ORDER CHECKER) Narrative 08/14/2024 12:00 AM PURCHASE ORDER CHECKER Ordered by an unspecified provider. us Other Clinical Staff OTHER Final Resul t * HCHG TUBE PR1, HCHG STYLET PR1, HCHG MOUTHPIECE PR1 (08/13/2024 7:53 AM PURCHASE ORDER CHECKER) Narrative Shani Batista CRNA - 08/13/2024 7:53 AM PURCHASE ORDER CHECKER Shani Batista CRNA 08/13/2024 7:54 AM Procedure: [...] Final Result * SODIUM (08/09/2024 9:35 AM PURCHASE ORDER CHECKER) Only the most recent of2 resultswithin the time period is included. SODIUM 138 136 - 145 mmol/L 08/09/2024 10:15 AM PURCHASE ORDER CHECKER [facility] Blood BLOOD SPECIMEN / Unknown Venipuncture / Unknown 08/09/2024 9:35 AM PURCHASE ORDER CHECKER 08/09/2024 9:43 AM PURCHASE ORDER CHECKER Claire Del Real MD CHEMISTRY Final Result Performing Organization Address [facility]/ZIP Co de Phone Number [facility] SENDOUT INTERNAL ZIP [address] [place] [id number] * VANCOMYCIN TROUGH (08/09/2024 9:35 AM PURCHASE ORDER CHECKER) VANCOMYCIN,TRO UGH 15.4 7.0 - 20.0 ug/mL 08/09/2024 10:17 AM PURCHASE ORDER CHECKER [facility] DATE OF LAST DOSE,TROUGH Not Given 08/09/2024 10:17 AM PURCHASE ORDER CHECKER [facility] TIME OF LAST DOSE,TROUGH Not Given 08/09/2024 10:[address] [facility] Blood BLOOD SPECIMEN / Unknown Venipuncture / Unknown 08/09/2024 9:35 AM PURCHASE ORDER CHECKER 08/09/2024 9:43 AM PURCHASE ORDER CHECKER Jared Cardona MD CHEMISTRY Prabha l Result Performing Organization Address [facility]/ZIP Co de Phone Number [facility] SENDOUT INTERNAL ZIP [address] [place] [phone] * CT ASPIRATION PELVIS (08/07/2024 9:42 AM PURCHASE ORDER CHECKER) Anatomical Region Laterality Modality Pelvis Computed Tomogra phy, Other 08/07/2024 9:42 AM PURCHASE ORDER CHECKER Impressions 08/07/2024 10:17 AM PURCHASE ORDER CHECKER 1. Successful CT-guided puncture and aspiration of anterior paraspinal postop fluid. Reference CPT Codes: 18013, 15079 Narrative 08/07/2024 10:17 AM PURCHASE ORDER CHECKER For Patients: As a result of the Cures Act, medical imaging exams and procedure reports are released immediately into your electronic medical record. You may view this report before your referring provider. If you have questions, please contact your health care provider. EXAM: 1. PERCUTANEOUS PUNCTURE AND ASPIRATION RETROPERITONEAL FLUID 2. CT GUIDANCE 3. CONSCIOUS SEDATION LOCATION: [facility] DATE: 08/07/2024 INDICATION: free text)->Aspirate and culture seroma.. Postop fluid in the paraspinal soft tissues anteriorly. TECHNIQUE: Dose reduction techniques were used. PROCEDURE: Informed consent obtained. Site marked. Prior images reviewed. Required items made available. Patient identity confirmed verbally and with arm band. Patient reevaluated immediately before administering sedation. [place] protocol was followed. Time out performed. The [...] 2. CT GUIDANCE 3. CONSCIOUS SEDATION LOCATION: [facility] DATE: 08/07/2024 INDICATION: free text)->Aspirate and culture seroma.. Postop fluid in theparaspinal soft tissues anteriorly. TECHNIQUE: Dose reduction techniques were used. PROCEDURE: Informed consent obtained. Site marked. Prior images reviewed.Required items made available. Patient identity confirmed verbally andwith arm band. Patient reevaluated immediately before administeringsedation. [place] protocol was followed. Time out performed. The [...] of anterior paraspinalpostop fluid. Reference CPT Codes: 92509, [address] Final Resul t * (ABNORMAL) PROTIME-INR (08/07/2024 6:44 AM PURCHASE ORDER CHECKER) INR 1.2 <1.3 08/07/2024 7:[address] [facility] PROTIME 14.0(H) 10.6 - 12.4 sec 08/07/2024 7:[address] [facility] Blood BLOOD SPECIMEN / Unknown Venipuncture / Unknown 08/07/2024 6:44 AM PURCHASE ORDER CHECKER 08/07/2024 7:23 AM [facility] - 08/07/2024 7:33 AM [facility] Therapeutic Range 2.0-3.0 for most anticoagulated patients [...] us Tonya Peoples NP HEMATOLOGY Final Result [facility] SENDOUT INTERNAL ZIP [phone] [place] [address] * CT PELVIS W (08/06/2024 1:51 PM PURCHASE ORDER CHECKER) Anatomical Region Laterality Modality Pelvis, Abdomen, PROSTATE, BLADDER Computed Tomography 08/06/2024 1:51 PM PURCHASE ORDER CHECKER Impressions 08/06/2024 2:59 PM PURCHASE ORDER CHECKER 1. Postoperative changes of anterior interbody fusion [...] excluded by imaging. Narrative 08/06/2024 2:59 PM PURCHASE ORDER CHECKER For Patients: As a result of the Century Cures Act, medical imaging exams and procedure reports are released immediately into your electronic medical record. You may view this report before your referring provider. If you have questions, please contact your health care provider. EXAM: CT PELVIS W LOCATION: [facility] DATE: 08/06/2024 INDICATION: Osteomyelitis suspected, [...] care provider. EXAM: CT PELVIS W LOCATION: [facility] DATE: 08/06/2024 INDICATION: Osteomyelitis suspected, [...] L5-S1, and posterior instrumented fusion extending from [id number] the pelvis with posterior decompression including righthemilaminectomy at L4-L5 and L5-S1, and left L5 laminectomy. The hardwareis intact without evidence of loosening or failure. There is bone graftmaterial along bilateral L4-S1 posterior elements. There is an bxg-uuimweqxtx-tghwgpoygx fluid collection within the posterior paraspinal softtissues at the operative site centered at the level of L5 measuringapproximately 7.1 x 2.5 x 3.4 cm (series 6, image 12 and series 5, [id number]). There is an additional developing fluid collection [...] MAMMO TAMICA BILAT SCREEN (08/23/2023 1:18 PM PURCHASE ORDER CHECKER) Anatomical Region Laterality Modality BREASTS, Breast Left, Breast Right Bilateral Mammography Impressions 08/23/2023 3:01 PM PURCHASE ORDER CHECKER There is no radiographic evidence for malignancy. Recommend annual mammograms. MAMMOGRAM ASSESSMENT: ACR 1 Negative PATIENTS: You will also receive a letter with your examination results in an easy to read format. If you have questions about your results, please contact your referring provider. Narrative 08/23/2023 3:01 PM PURCHASE ORDER CHECKER For Patients: As a result of the 21st Century Cures Act, medical imaging exams and procedure reports are released immediately into your electronic medical record. You may view this report before your referring provider. If you have questions, please contact your health care provider. XR MAMMO TAMICA BILAT SCREEN [[id number]] CLINICAL HISTORY: This is an asymptomatic 53 y.o. patient. INDICATION FOR EXAM: Mammogram Screening. TECHNIQUE: CC & MLO views were obtained. This study was evaluated with the assistance of Computer-Aided Detection. Breast Tomosynthesis was used in interpretation. COMPARISON FILM: [facility] FINDINGS: The breasts are almost entirely fatty. There are no dominant masses, suspicious micro calcifications or areas of architectural distortion. Brooke Nur MD MAMMO Final Resul t * LDL CHOLESTEROL,DIRECT (08/16/2023 10:51 AM PURCHASE ORDER CHECKER) LDL CHOLESTEROL,DI RECT 105 mg/dL 08/16/2023 5:56 PM PURCHASE ORDER CHECKER [facility] PROVIDER ORDERED STATUS RANDOM 08/16/2023 5:56 PM PURCHASE ORDER CHECKER [facility] Blood BLOOD SPECIMEN / Unknown Venipuncture / Unknown 08/16/2023 10:51 AM PURCHASE ORDER CHECKER 08/16/2023 10:52 AM PURCHASE ORDER CHECKER Narrative [facility] - 08/16/2023 5:56 PM PURCHASE ORDER CHECKER Optimal <100 mg/dl Near Optimal 100-129 mg/dl Borderline High 130-159 mg/dl High 160-189 mg/dl Very High >=190 mg/dl Brooke Nur MD CHEMISTRY Final Resul t [facility] [address] [place] [id number], [place] * COLONOSCOPY (12/16/2021 8:41 AM CDT) 12/16/2021 8:41 AM CDT Narrative Transcriptions Sunil Nicolas MD - 12/16/2021 9:19 AM CDT Patient Name: Jazmyne Craig Procedure Date: 12/16/2021 Gender: Female Date of : 1970 Admit Type: Outpatient Procedure: Colonoscopy Proceduralist: Sunil Nicolas MD , Ana Lilia Tyler RN(Nurse) Referring MD: Brooke Nur Indications/Pre-Op Diagnosis: Screening for colorectal malignant neoplasm, [...] 8:41 AM Procedure Code(s): --- Professional --- 02066, Colonoscopy, flexible; diagnostic, including collection of specimen(s) bybrushing or washing, when performed (separateprocedure) Diagnosis Code(s): --- Professional --- Z12.11, Encounter for screening formalignant neoplasm of colon K57.30, Diverticulosis of large intestine without perforation or abscess withoutbleeding CPT copyright 2020 [employer]. All rights reserved. The codes documented in this report are preliminary and upon director plans reviewmay be revised to meet current compliance requirements. Scope In: 8:56:25 AM Scope Withdrawal Time 0 hours 8 minutes 32 seconds Scope Out: 9:14:32 AM us Sunil Nicolas MD PROCEDURE ORD Final Res ult * ANTI HIV 1/2 (12/31/2018 10:40 AM CDT) HIV-1/HIV-2 ANTIBODY Non-Reacti ve Non-Reacti ve 12/31/2018 5:15 PM CDT [facility] [employer] Comment:HIV-1 p24 and HIV-1/ HIV-2 Ab not detected. Blood BLOOD SPECIMEN / Unknown Venipuncture / Unknown 12/31/2018 10:40 AM CDT 12/31/2018 10:41 AM CDT Brooke Nur MD SEND OUTS Final Resul t [facility] [address] [place] [address], * ACUTE HEPATITIS PANEL (03/07/2010 3:18 PM CDT) HBSAG Non-reacti ve [facility] IGM ANTI HBC Non-reacti ve [facility] IGM ANTI HAV Non-reacti ve [facility] ANTI HCV Non-reacti ve [facility] Blood specimen (specimen) BLOOD SPECIMEN / Unknown 03/07/2010 3:18 PM CDT 03/07/2010 3:07 PM CDT us Klarissa Field DO SEND OUTS Final Resu lt [facility] INTERNAL ZIP [address] [place] [phone] from Last 3 Months or Most Recently Relevant to Health Maintenance Insurance [facility] CARE [place]: [place] [address] MEDICAID [facility] CARE ATTN: [place] [address] MEDICAID [place] Advance Directives * Full Code [...] Status Discussion: Per Existing Order Care Teams Logistics Coordinator Relationship Specialty Start Date End Date Brooke Nur MD [address] [place] [address] PCP - General Family Practice 08/06/18 Sally Freeman MD Obstetrics and Gynecology 04/21/[address] [address] 10/02/24
[2024-11-04 21:31] LABS: Slide Review Reflex No
[2024-11-04] MEDS: HYDROCORTISONE SOD SUCCINATE 50 MG/ML inj 200 MG IVP (21:44)
[2024-11-04] MEDS: diphenhydrAMINE 50 MG/ML inj IVP (21:44)
[2024-11-04 21:46] LABS: Albumin* 3.8 g/dL (3.3-5.0); Chloride* 101 mmol/L (96-114); Potassium* 4.1 mmol/L (3.6-5.1); Sodium* 140 mmol/L (135-149)
[2024-11-04 21:49] LABS: Alkaline Phosphatase* 71 U/L (40-150); Anion Gap 13 mEq/L (7-15); Aspartate Amino Transferase* 36 U/L (12-35); Bilirubin Direct* 0.2 mg/dL (0.0-0.5); Bilirubin Total* 0.3 mg/dL (0.1-1.5); Blood Urea Nitrogen* 7 mg/dL (7-30); Carbon Dioxide* 26 mmol/L (20-32); Creatinine* 0.6 mg/dL (0.5-1.5); Est. Creatinine Clearance* 115.13; Estimated Glomerular Filt Rate 107 ml/min; Glucose* 253 mg/dL (60-115); Total Protein* 7.1 g/dL (6.0-8.3)
[2024-11-04 21:50] LABS: Alanine Aminotransferase* 19 U/L (4-35); Calcium* 9.5 mg/dL (8.4-10.6); Lipase* 230 U/L (23-300)
[2024-11-04 21:52] LABS: C Reactive Protein* 4.3 mg/dL (0.5-1.0)
[2024-11-04 22:19] LABS: Appearance Urine Clear (Clear); Bilirubin Urine Negative (Negative); Blood Urine Negative (Negative); Color Urine Yellow (Yellow); Glucose Urine Negative (Negative); Ketones Urine Negative (Negative); Leukocyte Esterase Urine Negative (Negative); Nitrite Urine Negative (Negative); Protein Urine Negative (Negative); Urobilinogen Urine 0.2 (0.2-1.0)
[2024-11-04 22:36] LABS: Bacteria Urine Few; RBC Urine 0-2 (0-2); Squamous Epithelial Cell Urine Few (None-Few); WBC Urine 0-2 (0-5)
--- NOTE | 2024-11-04 23:27 | ED.GENADULT ---
HPI - General Adult General Date Seen: 11/04/24 Chief complaint: Abdominal Pain Stated complaint: Abdominal pain Time Seen by Provider: 11/04/24 20:52 History of Present Illness HPI narrative: Patient is a 54-year-old woman, [place] speaking, here with her sister with concerns of abdominal pain. She has had multiple recent surgeries at [facility]. Initially apparently had a spinal surgery, then developed infection and has had a couple surgeries since then, most recently a month ago at which time the wound was left open and a wound VAC was placed. She follows with a wound care nurse once a week it sounds like, and they have home health twice a week. She saw her surgeon last week, and was given 10 tablets of tramadol, but her sister says that her pain is not adequately controlled. She has apparently been completely out of pain medications for 2 days, then note that she has not been able to get an appointment in a timely manner with the [facility] so they came here because it was faster. Her sister does feel the pain is worse over the past couple of days. Sister provides the bulk of the history as she says the patient is too uncomfortable to do so. Lab Tester is used. They do deny any difficulty with fevers, nausea, vomiting, stool changes, urinary symptoms. Related Data Home Medications ?Medication ?Instructions ?Recorded ?Confirmed acetaminophen 11/04/24 cetirizine 10 mg tablet 10 mg PO DAILY 11/04/24 11/04/24 ergocalciferol 11/04/24 famotidine 20 mg tablet 20 mg PO DAILY 11/04/24 11/04/24 gabapentin 300 mg capsule 300 mg PO QPM 11/04/24 11/04/24 glipizide 10 mg tablet 10 mg PO BID 11/04/24 11/04/24 metformin 1,000 mg tablet 1,000 mg PO BID 11/04/24 11/04/24 metoclopramide HCl 11/04/24 prochlorperazine 11/04/24 tramadol 11/04/24 Allergies Allergy/AdvReac Type Severity Reaction Status Date / Time iodine Allergy Intermediate Verified 11/04/24 19:44 Review of Systems Status of ROS: Reports: 10 or more systems reviewed and unremarkable except as noted in History and below Exam Narrative: Exam Narrative: Vital signs reviewed In general, an alert, somewhat tearful middle-aged woman. Head: Normocephalic, atraumatic. Eyes: Sclera clear. Pupils equal and reactive. ENT: Mucous membranes moist. Neck: Supple without adenopathy. Heart: Regular rate and rhythm without murmur. Lungs: Clear. No increased work of breathing, crackles or wheezes. Abdomen: Wound VAC is in place over an approximately 5 cm in diameter around wound, black eschar on the surface. They report this looks the same as usual. There is no significant surrounding erythema. She has diffuse tenderness in the abdomen, greatest around the wound. No obvious fluid collections or masses. Extremities: Well perfused, pulses intact. No significant edema. Neurologic: Alert, conversant. Speech fluent, face symmetric. Moves all extremities equally. Skin: Warm, dry well perfused. Affect: Normal. Const: Vital Signs, click to edit/add: Vital Signs - 24 hr 11/04/24 19:33 11/04/24 21:23 11/04/24 21:30 Temperature 98.1 F Pulse Rate 101 H 94 Pulse Rate [Pulse Oximeter] 111 H Respiratory Rate 18 19 18 Blood Pressure Blood Pressure [Ri ght Upper Arm] 87/61 L Pulse Oximetry 98 98 98 Oxygen Delivery Me thod Room Air 11/04/24 21:31 11/04/24 22:02 11/04/24 22:15 Temperature Pulse Rate 89 92 85 Pulse Rate [Pulse Oximeter] Respiratory Rate 13 21 18 Blood Pressure 132/75 135/75 Blood Pressure [Ri ght Upper Arm] Pulse Oximetry 99 98 100 Oxygen Delivery Me thod 11/04/24 22:35 11/04/24 22:45 11/04/24 23:48 Temperature Pulse Rate 86 84 98 Pulse Rate [Pulse Oximeter] Respiratory Rate 22 14 13 Blood Pressure 102/45 L Blood Pressure [Ri ght Upper Arm] Pulse Oximetry 98 98 96 Oxygen Delivery Me thod 11/04/24 23:50 Temperature Pulse Rate 97 Pulse Rate [Pulse Oximeter] Respiratory Rate 17 Blood Pressure 105/74 Blood Pressure [Ri ght Upper Arm] Pulse Oximetry 97 Oxygen Delivery Me thod Course Course ED Course: Following initial evaluation, an IV was placed, will give her 4 mg of morphine, L of normal saline, and the order imaging in the form of CT scan with contrast as well as labs to ensure that there are no complicating factors contributing to which she reports as severe pain. She does report an iodine allergy, she was pretreated for CT with 200 mg of hydrocortisone IV as well as 50 mg of Benadryl. She did have improvement in her pain with morphine although she required a 2nd dose later in her stay. Labs are notable for a normal white blood cell count of 9.6, hemoglobin is 9.4, baseline unknown. Platelets fibrin 56. Diff is unremarkable. Metabolic panel is normal, blood sugar is 253. Lactate 4, LFTs are unremarkable, CRP mildly elevated at 4.3 and lipase normal at 230. Show 0-2 red cells and 0-2 white cells, few bacteria. Patient reported feeling hot and diffusely itchy, I evaluated her, I do not see any evidence of rash or hives, vital signs are stable, lungs are clear. I do not think this represents an allergic reaction to contrast. Discussed that sometimes morphine can make people itchy. Will watch her for 1/2 hour so here and make sure she does not worsen. I reviewed her CT scan, I do see the abdominal wound but I do not see any evidence of abscess or intra-abdominal abnormalities. Her CT scan is read by Radiology, no acute findings in the abdomen or pelvis, they note the abdominal wound and say that there is no underlying fluid collection either within the subcutaneous fat or peritoneal cavity. Discussed these findings with the patient and her sister. At this time, I think everything is reassuring. I am going to give her Percocet, 4 tablets that she can use as needed over the next day for pain control, but they will need to contact her surgeon or primary care doctor to discuss further pain management as it seems to me that they may be trying to transition her away from narcotics at this point. Vital Signs Vital signs: Initial Vital Signs Temperature 98.1 F 11/04/24 19:33 Temperature Source Temporal Artery Scan 11/04/24 19:33 Pulse Rate 111 H 11/04/24 19:33 Respiratory Rate 18 11/04/24 19:33 Blood Pressure 87/61 L 11/04/24 19:33 Blood Pressure Mean 69 L 11/04/24 19:33 Blood Pressure Position Sitting 11/04/24 19:33 Pulse Oximetry 98 11/04/24 19:33 Oxygen Delivery Method Room Air 11/04/24 19:33 Vital Signs Temperature 98.1 F 11/04/24 19:33 Pulse Rate 111 H 11/04/24 19:33 Respiratory Rate 18 11/04/24 19:33 Blood Pressure 87/61 L 11/04/24 19:33 Pulse Oximetry 98 11/04/24 19:33 Oxygen Delivery Method Room Air 11/04/24 19:33 Temperature 98.1 F 11/04/24 19:33 Pulse Rate 97 11/04/24 23:50 Respiratory Rate 17 11/04/24 23:50 Blood Pressure 105/74 11/04/24 23:50 Pulse Oximetry 97 11/04/24 23:50 Oxygen Delivery Method Room Air 11/04/24 19:33 Medications Administered Medications: Discontinued Medications Generic Name Dose Route Start Last Admin Trade Name Freq PRN Reason Stop Dose Admin Diphenhydramine HCl 50 mg 11/04/24 21:35 11/04/24 21:44 Diphenhydramine 50 Mg/Ml Inj IVP 11/04/24 21:36 50 mg ONCE ONE Administration Hydrocortisone Sodium Succinate 200 mg 11/04/24 21:35 11/04/24 21:44 Hydrocortisone Sod Succinate 50 Mg/Ml Inj IVP 11/04/24 21:36 200 mg ONCE ONE Administration Sodium Chloride 1,000 mls @ 1,000 mls/hr 11/04/24 21:15 11/04/24 22:35 0.9 % Sodium Chloride 1000 Ml IV 11/04/24 22:14 Infused .Q1H SEFERINO Infusion Morphine Sulfate 4 mg 11/04/24 21:13 11/04/24 21:26 Morphine 4 Mg/Ml Inj IVP 11/04/24 21:14 4 mg ONCE ONE Administration Morphine Sulfate 4 mg 11/04/24 22:52 11/04/24 23:16 Morphine 4 Mg/Ml Inj IVP 11/04/24 22:53 4 mg ONCE ONE Administration Medical Decision Making Lab Data Lab results reviewed: Yes I reviewed the patient's lab results Labs: Lab Results 11/04/24 11/04/24 11/04/24 Range/Units 21:15 21:15 21:15 WBC 9.58 (4.50-11.00) K/uL RBC 4.07 (4.00-5.20) m/uL Hgb 9.4 L (12.0-16.0) gm/dL Hct 30.8 L (33.0-51.0) % MCV 76 L (80-100) fL MCH 23 L (26-34) pg MCHC 31 L (32-36) gm/dL RDW Coeff of Joann 16.6 H (11.5-15.5) % Plt Count 556 H (140-440) K/uL Neut % (Auto) 51.5 (42.0-72.0) % Lymph % (Auto) 36.6 (20-44) % [place] % (Auto) 8.1 (0.0-11.0) % Eos % (Auto) 2.9 (0.0-7.0) % Baso % (Auto) 0.4 (0.0-3.0) % Neut # (Auto) 4.92 (1.7-7.0) K/uL Lymph # (Auto) 3.51 H (0.90-2.90) K/uL [place] # (Auto) 0.80 (0.00-0.90) K/UL Eos # (Auto) 0.28 (0.00-0.50) K/uL Baso # (Auto) 0.04 (0.00-0.30) K/uL Abs Immat Gran (auto) 0.05 (0.00-0.30) K/uL Imm/Tot Granulo (auto) 0.5 % Sodium 140 (135-149) mmol/L Potassium 4.1 (3.6-5.1) mmol/L Chloride 101 (96-114) mmol/L Carbon Dioxide 26 (20-32) mmol/L Anion Gap 13 (7-15) mEq/L BUN 7 (7-30) mg/dL Creatinine 0.6 (0.5-1.5) mg/dL Estimated Creat Clear 115.13 Estimated GFR 107 ml/min Glucose 253 H (60-115) mg/dL Lactate 4.0 H (0.5-1.9) mmol/L Calcium 9.5 (8.4-10.6) mg/dL Total Bilirubin 0.3 Cancelled (0.1-1.5) mg/dL Direct Bilirubin 0.2 Cancelled (0.0-0.5) mg/dL AST 36 H (12-35) U/L ALT (4-35) U/L Alkaline Phosphatase (40-150) U/L C-Reactive Protein (0.5-1.0) mg/dL Total Protein (6.0-8.3) g/dL Albumin (3.3-5.0) g/dL Lipase (23-300) U/L Urine Color (Yellow) Urine Appearance (Clear) Urine pH (5.0-8.5) Ur Specific [place] (1.000-1.030) Urine Protein (Negative) Urine Glucose (UA) (Negative) Urine Ketones (Negative) Urine Blood (Negative) Urine Nitrite (Negative) Urine Bilirubin (Negative) Urine Urobilinogen (0.2-1.0) Ur Leukocyte Esterase (Negative) Urine RBC (0-2) Urine WBC (0-5) Ur Squamous Epith Cells (None-Few) Urine Bacteria (None) 11/04/24 11/04/24 11/04/24 Range/Units 21:15 21:15 21:15 WBC (4.50-11.00) K/uL RBC (4.00-5.20) m/uL Hgb (12.0-16.0) gm/dL Hct (33.0-51.0) % MCV (80-100) fL MCH (26-34) pg MCHC (32-36) gm/dL RDW Coeff of Joann (11.5-15.5) % Plt Count (140-440) K/uL Neut % (Auto) (42.0-72.0) % Lymph % (Auto) (20-44) % [place] % (Auto) (0.0-11.0) % Eos % (Auto) (0.0-7.0) % Baso % (Auto) (0.0-3.0) % Neut # (Auto) (1.7-7.0) K/uL Lymph # (Auto) (0.90-2.90) K/uL [place] # (Auto) (0.00-0.90) K/UL Eos # (Auto) (0.00-0.50) K/uL Baso # (Auto) (0.00-0.30) K/uL Abs Immat Gran (auto) (0.00-0.30) K/uL Imm/Tot Granulo (auto) % Sodium (135-149) mmol/L Potassium (3.6-5.1) mmol/L Chloride (96-114) mmol/L Carbon Dioxide (20-32) mmol/L Anion Gap (7-15) mEq/L BUN (7-30) mg/dL Creatinine (0.5-1.5) mg/dL Estimated Creat Clear Estimated GFR ml/min Glucose (60-115) mg/dL Lactate (0.5-1.9) mmol/L Calcium (8.4-10.6) mg/dL Total Bilirubin (0.1-1.5) mg/dL Direct Bilirubin (0.0-0.5) mg/dL AST Cancelled (12-35) U/L ALT 19 Cancelled (4-35) U/L Alkaline Phosphatase 71 Cancelled (40-150) U/L C-Reactive Protein 4.3 H (0.5-1.0) mg/dL Total Protein 7.1 (6.0-8.3) g/dL Albumin (3.3-5.0) g/dL Lipase (23-300) U/L Urine Color (Yellow) Urine Appearance (Clear) Urine pH (5.0-8.5) Ur Specific [place] (1.000-1.030) Urine Protein (Negative) Urine Glucose (UA) (Negative) Urine Ketones (Negative) Urine Blood (Negative) Urine Nitrite (Negative) Urine Bilirubin (Negative) Urine Urobilinogen (0.2-1.0) Ur Leukocyte Esterase (Negative) Urine RBC (0-2) Urine WBC (0-5) Ur Squamous Epith Cells (None-Few) Urine Bacteria (None) 11/04/24 11/04/24 11/04/24 Range/Units 21:15 21:15 21:15 WBC (4.50-11.00) K/uL RBC (4.00-5.20) m/uL Hgb (12.0-16.0) gm/dL Hct (33.0-51.0) % MCV (80-100) fL MCH (26-34) pg MCHC (32-36) gm/dL RDW Coeff of Joann (11.5-15.5) % Plt Count (140-440) K/uL Neut % (Auto) (42.0-72.0) % Lymph % (Auto) (20-44) % [place] % (Auto) (0.0-11.0) % Eos % (Auto) (0.0-7.0) % Baso % (Auto) (0.0-3.0) % Neut # (Auto) (1.7-7.0) K/uL Lymph # (Auto) (0.90-2.90) K/uL [place] # (Auto) (0.00-0.90) K/UL Eos # (Auto) (0.00-0.50) K/uL Baso # (Auto) (0.00-0.30) K/uL Abs Immat Gran (auto) (0.00-0.30) K/uL Imm/Tot Granulo (auto) % Sodium (135-149) mmol/L Potassium (3.6-5.1) mmol/L Chloride (96-114) mmol/L Carbon Dioxide (20-32) mmol/L Anion Gap (7-15) mEq/L BUN (7-30) mg/dL Creatinine (0.5-1.5) mg/dL Estimated Creat Clear Estimated GFR ml/min Glucose (60-115) mg/dL Lactate (0.5-1.9) mmol/L Calcium (8.4-10.6) mg/dL Total Bilirubin (0.1-1.5) mg/dL Direct Bilirubin (0.0-0.5) mg/dL AST (12-35) U/L ALT (4-35) U/L Alkaline Phosphatase (40-150) U/L C-Reactive Protein (0.5-1.0) mg/dL Total Protein Cancelled (6.0-8.3) g/dL Albumin 3.8 Cancelled (3.3-5.0) g/dL Lipase 230 Cancelled (23-300) U/L Urine Color (Yellow) Urine Appearance (Clear) Urine pH (5.0-8.5) Ur Specific [place] (1.000-1.030) Urine Protein (Negative) Urine Glucose (UA) (Negative) Urine Ketones (Negative) Urine Blood (Negative) Urine Nitrite (Negative) Urine Bilirubin (Negative) Urine Urobilinogen (0.2-1.0) Ur Leukocyte Esterase (Negative) Urine RBC (0-2) Urine WBC (0-5) Ur Squamous Epith Cells (None-Few) Urine Bacteria (None) 03/11/25 03/11/25 Range/Units 22:10 23:20 WBC (4.50-11.00) K/uL RBC (4.00-5.20) m/uL Hgb (12.0-16.0) gm/dL Hct (33.0-51.0) % MCV (80-100) fL MCH (26-34) pg MCHC (32-36) gm/dL RDW Coeff of Joann (11.5-15.5) % Plt Count (140-440) K/uL Neut % (Auto) (42.0-72.0) % Lymph % (Auto) (20-44) % [place] % (Auto) (0.0-11.0) % Eos % (Auto) (0.0-7.0) % Baso % (Auto) (0.0-3.0) % Neut # (Auto) (1.7-7.0) K/uL Lymph # (Auto) (0.90-2.90) K/uL [place] # (Auto) (0.00-0.90) K/UL Eos # (Auto) (0.00-0.50) K/uL Baso # (Auto) (0.00-0.30) K/uL Abs Immat Gran (auto) (0.00-0.30) K/uL Imm/Tot Granulo (auto) % Sodium (135-149) mmol/L Potassium (3.6-5.1) mmol/L Chloride (96-114) mmol/L Carbon Dioxide (20-32) mmol/L Anion Gap (7-15) mEq/L BUN (7-30) mg/dL Creatinine (0.5-1.5) mg/dL Estimated Creat Clear Estimated GFR ml/min Glucose (60-115) mg/dL Lactate 2.3 H (0.5-1.9) mmol/L Calcium (8.4-10.6) mg/dL Total Bilirubin (0.1-1.5) mg/dL Direct Bilirubin (0.0-0.5) mg/dL AST (12-35) U/L ALT (4-35) U/L Alkaline Phosphatase (40-150) U/L C-Reactive Protein (0.5-1.0) mg/dL Total Protein (6.0-8.3) g/dL Albumin (3.3-5.0) g/dL Lipase (23-300) U/L Urine Color Yellow (Yellow) Urine Appearance Clear (Clear) Urine pH 7.0 (5.0-8.5) Ur Specific [place] 1.010 (1.000-1.030) Urine Protein Negative (Negative) Urine Glucose (UA) Negative (Negative) Urine Ketones Negative (Negative) Urine Blood Negative (Negative) Urine Nitrite Negative (Negative) Urine Bilirubin Negative (Negative) Urine Urobilinogen 0.2 (0.2-1.0) Ur Leukocyte Esterase Negative (Negative) Urine RBC 0-2 (0-2) Urine WBC 0-2 (0-5) Ur Squamous Epith Cells Few (None-Few) Urine Bacteria Few A (None) Imaging Data CT scan - abdomen: Attestation: I have reviewed the pertinent imaging results. Radiologist's impression: Patient: Jazmyne Herron MR#: [id number] : 1970 Acct:[id number] Loc: ED Service Date: 11/04/[address]: Ordering Physician: Marilin Ren M.D. Date of Service: 11/04/24 Procedure(s): CT abdomen pelvis w con Accession Number(s): [id number] cc: Marilin Ren M.D.; Provider,Not a Local~ For Patients: As a result of the Cures Act, medical imaging exams and procedure reports are released immediately into your electronic medical record. You may view this report before your referring provider. If you have questions, please contact your health care provider. INDICATION: Wound VAC, pain. TECHNIQUE: CT abdomen and pelvis acquired with 74 cc of Isovue 370 IV contrast. COMPARISON: None. FINDINGS: Lower chest: Mild dependent lower lobe atelectasis. Liver: Unremarkable. Normal in size and attenuation. No suspicious masses. Gallbladder and bile ducts: Unremarkable. No stones or inflammation. No biliary dilatation. Pancreas: Unremarkable. No mass or inflammation. Spleen: Unremarkable. Normal in size. No masses. Adrenal glands: Unremarkable. No nodules. Kidneys: Unremarkable. No suspicious masses, stones, or hydronephrosis. GI tract: Diverticulosis without pericolonic inflammation. No obstruction. Prior appendectomy Vasculature: Abdominal aorta is normal in caliber. Mesenteric arteries are patent. Lymph nodes: No lymphadenopathy. Peritoneum/Abdominal Wall: Large ventral abdominal wound with overlying wound VAC. No underlying fluid collection either within the subcutaneous fat or peritoneal cavity. No free air or significant free fluid in the pelvis. Pelvis: Unremarkable. Bones: Lumbosacral fusion hardware. Otherwise, unremarkable for age. IMPRESSION: 1. Large ventral abdominal wound with overlying wound VAC. No underlying fluid collection either within the subcutaneous fat or peritoneal cavity. 2. No acute findings within the abdomen and pelvis. Please note that all CT scans at this facility use dose modulation, iterative reconstruction, and/or weight-based dosing when appropriate to reduce radiation dose to as low as reasonably achievable. Dictated by Jesus Rodrigues MD @ 11/04/2024 11:38:29 PM Discharge Plan Discharge Clinical Impression: Abdominal pain, Chronic abdominal wound infection Patient Disposition: Home, Self-Care Condition: Improved Instructions: Abdominal Pain (ED) Additional Instructions: Your test today are all reassuring. Your labs suggest that you are little bit dehydrated, but your CT scan does not show any evidence of complications such as infected fluid or blockages. I am providing a small number of pain pills tonight, please discuss with your surgeon by phone, or with your primary doctor regarding ongoing pain management. Prescriptions: No Action cetirizine 10 mg tablet 10 mg PO DAILY acetaminophen ergocalciferol famotidine 20 mg tablet 20 mg PO DAILY glipizide 10 mg tablet 10 mg PO BID metformin 1,000 mg tablet 1,000 mg PO BID gabapentin 300 mg capsule 300 mg PO QPM metoclopramide HCl prochlorperazine tramadol Follow Up/Referrals: Provider,Not a Local [Primary Care Provider] - Stand Alone Forms: Book&Table Info Instructions
[2024-11-04 23:31] LABS: Lactate Sepsis 2 Hour 2.3 mmol/L (0.5-1.9)
== END 2024-11-05 00:42 | disposition home or self-care (01) ==
PROVIDERS: Emergency Provider Emergency Medicine
DX: S31.109A Unspecified open wound of abdominal wall, unspecified quadrant without penetration into peritoneal cavity, initial encounter (principal); L08.9 Local infection of the skin and subcutaneous tissue, unspecified
CPT/HCPCS: 36415; 74177; 80048; 80076; 81001; 83605; 83690; 85025; 86140; 87040; 87086; 96374; 96375; 96376; 99284; J1200; J1720; J2270; J7030; Q9967